=== PATIENT | female | born 1945 | race Hispanic/Latino ===

== ENCOUNTER 2018-03-19 16:41 | Inpatient (IN) | payer OTHER ==
--- OUTSIDE RECORDS SUMMARY | 2018-03-19 17:32 | XMS REPORT | Clinical Summary ---
:1945 Author Organization [facility] Address [address] [place] [address] Care Team Providers Name Role Phone Daniel Lucio MD Primary Care Provider Allergies Active Allergy Reactions Severity Noted Date Comments Codeine GI Intolerance 02/13/2016 Current Medications Prescription Sig. Disp. Refills Start Date End Date Status LINZESS 145 mcg capsule Take 145 mcg by 3 01/10/2016 Active mouth daily. albuterol (VENTOLIN HFA) Inhale 2 puffs every Active 90 mcg/actuation inhaler 6 (six) hours as needed for shortness of breath. budesonide-formoterol Inhale 2 puffs 2 Active (SYMBICORT) 160-4.5 (two) times a day. mcg/actuation inhaler insulin GLARGINE Inject 24 Units Active (LANTUS) 100 unit/mL under the skin daily injection as needed. aspirin (ECOTRIN) 81 MG Take 81 mg by mouth Active enteric coated tablet daily. torsemide (DEMADEX) 20 Take 20 mg by mouth Active MG tablet daily. Active Problems Problem Noted Date PAD (peripheral artery disease) ([facility]) 02/04/2017 Last Assessment & Plan: N. Patient with symptomatic peripheral arterial disease. We discussed peripheral arterial disease, its etiology and need for medical management be contributing risk factors . We discussed natural history i ncluding claudication progressing to rest pain, ulcerations and possibly limb loss. We discussed treatment options including medical therapy, endovascular therapy with angioplasty or stenting, and surgi toni bypass. We discussed trying to avoid amputation and the need to go in a stepwise fashion. We discussed potential complications including worsening of disease, healing complications, recurrent nature of this problem and need for additional therapies in the future. Duplex studies reviewed by me show KEV are 1.2. And 1.1. Presumed to be weight related. I advised the pt of the importance of wrapping legs to reduce edema, then wearing knee-high compression stockings. Plan for US of veins. Osteoporosis 02/04/2017 Spinal stenosis 02/04/2017 CKD stage 4 due to type 2 diabetes mellitus (HCC) 02/04/2017 Last Assessment & Plan: Discuss with Dr. Almaguer about potentially beginning diuretics Obesity 02/04/2017 Last Assessment & Plan: I discussed the importance of weight management and discussed the risk of worsening kidney and cardiovascular diseases. Plan to discuss weight management further with Dr. Burns. Umbilical hernia 02/04/2017 Aortic valve disorder 04/30/2016 Diabetes mellitus (HCC) 04/30/2016 HLD (hyperlipidemia) 04/30/2016 COPD exacerbation (HCC) 02/13/2016 Family History Medical History Relation Name Comments No Known Problems Brother No Known Problems Cousin No Known Problems Daughter No Known Problems Father No Known Problems Maternal Grandfather No Known Problems Maternal Grandmother No Known Problems Mother No Known Problems Paternal Grandfather No Known Problems Paternal Grandmother No Known Problems Sister No Known Problems Son Asthma Neg Hx Diabetes Neg Hx Heart failure Neg Hx Hyperlipidemia Neg Hx Hypertension Neg Hx Migraines Neg Hx Osteoarthritis Neg Hx Rashes / Skin problems Neg Hx Rheum arthritis Neg Hx Seizures Neg Hx Stroke Neg Hx Thyroid disease Neg Hx Relation Name Status Comments Brother Cousin Daughter Father Maternal Grandfather Maternal Grandmother Mother Paternal Grandfather Paternal Grandmother Sister Son Social History Tobacco Use Types Packs/Day Years Used Date Former Smoker Comments: 3x/yr; last time was 5 mos ago Alcohol Use Drinks/Week oz/Week Comments Yes occasional Sex Assigned at Date Recorded Not on file Last Filed Vital Signs Not on file Plan of Treatment Health Maintenance Due Date Last Done Comments DIABETIC FOOT EXAM 08/09/1953 DIABETIC RETINAL EYE EXAM 08/09/1953 BREAST CANCER SCREENING 08/09/1993 COLON CANCER SCREENING 08/09/1993 SHINGRIX VACCINE (#1) 08/09/1993 ZOSTER VACCINE 2003 PNEUMOCOCCAL POLYSACCHARIDE VACCINE AGE 65 AND OVER 08/09/2008 PNEUMOCOCCAL-13 08/09/2008 INFLUENZA VACCINE 12/25/2017 Results Not on fileafter 03/18/2017 Insurance Payer Benefit Plan / Group Subscriber ID Type Phone Address MEDICARE MEDICARE PART A AND B xxxxxxxxxx Medicare [place], [place] COMMERCIAL MISC MISC COMMERCIAL xxxxxxxxx Commercial Home: [phone], [place] [phone] [address] [employer] [employer] Self 1945 Home: [address] [phone] [id number]
[2018-03-19 18:22] VITALS: BMI 37.5
[2018-03-19] MEDS ORDERED: ONDANSETRON 4 MG/2 ML VIAL IV PRN (19:00)
[2018-03-19] MEDS ORDERED: POLYETHYL GLY 3350 17 GM/DOSE PO PRN (19:00)
[2018-03-19] MEDS ORDERED: LOPERAMIDE HCL 2 MG CAPSULE PO PRN (19:00)
[2018-03-19] MEDS ORDERED: ACETAMINOPHEN 325 MG TABLET PO PRN (19:00)
[2018-03-19] MEDS ORDERED: ONDANSETRON 4 MG (ODT) TAB PO PRN (19:00)
[2018-03-19] MEDS ORDERED: DIPHENHYDRAMINE 25 MG TAB/CAP PO PRN (19:00)
[2018-03-19 19:06] LABS: Absolute Lymphocytes (CBC) 1.4 K/uL (0.7-4.9); Absolute Monocytes 0.6 K/uL (0.1-1.3); Absolute Neutrophil 4.5 K/uL (1.8-8.0); Basophils % 1.1 % (0-1.3); Eosinophils % 1.4 % (0-4.4); Hematocrit 29.1 % (36.0-45.0); Lymphocytes % 21.1 % (15.3-44.8); MCH 28.4 pg (27.0-35.0); MPV 9.7 fL (7.6-11.3); Monocytes % 9.5 % (3.3-12.3); RBC Red Blood Cell Count 3.42 M/uL (3.86-4.86)
[2018-03-19 19:31] LABS: Protime INR 1.16
[2018-03-19 19:35] LABS: Albumin 2.9 g/dL (3.4-5.0); Bilirubin Direct 0.1 mg/dL (0-0.2); Bilirubin Total 0.3 mg/dL (0.2-1.0); Magnesium 2.3 mg/dL (1.8-2.4); Phosphorus 3.5 mg/dL (2.5-4.9); Potassium 4.2 mmol/L (3.5-5.1); Protein, Total 7.2 g/dL (6.4-8.2); Thyroid Stimulating Hormone 1.71 uIU/mL (0.360-3.740)
[2018-03-19] MEDS ORDERED: D50W 25 GM/50 ML SYRINGE IV PRN (19:55)
[2018-03-19] MEDS ORDERED: GLUCAGON 1 MG/VIAL IM PRN (19:55)
[2018-03-19] MEDS ORDERED: PNEUMOCOCCAL VACCINE 0.5 ML IMVAC ONE (20:00)
[2018-03-19] MEDS ORDERED: INFLUENZA VACCINE (for 3y+) 0.5 ML DOSE IMVAC ONE (20:00)
[2018-03-19 20:07] LABS: Urine Appearance CLEAR; Urine Bilirubin NEGATIVE (NEG); Urine Blood TRACE (NEG); Urine Color YELLOW; Urine Glucose TRACE (NEG); Urine Protein 3+ (NEG); Urine Specific Gravity 1.015 (1.005-1.030); Urine Urobilinogen 0.2 mg/dL (0.2-1.0); Urine pH 5.5 (5.0-7.0)
--- NOTE | 2018-03-19 20:10 | RAD REPORT ---
EXAM DESCRIPTION: RAD - Chest Pa And Lat (2 Views) - 03/19/2018 8:02 pm CLINICAL HISTORY: DYSPNEA, EDEMA Chest pain. COMPARISON: Chest Single View dated 03/21/2017; Chest Single View dated 03/19/2017; Chest Pa And Lat (2 Views) dated 04/05/2016; Chest Pa And Lat (2 Views) dated 03/13/2016 FINDINGS: Mild interstitial pulmonary edema is seen. The heart is moderately enlarged in size. Small bilateral pleural effusions are present. Sternal hardware is present. IMPRESSION: Mild CHF versus volume overload pattern. Small bilateral pleural effusions.
[2018-03-19 20:20] LABS: Urine Microscopic Reflex ORDER UMIC
[2018-03-19 20:24] LABS: Urine Bacteria <20 /HPF (<20); Urine Culture Reflex Order REFLEXED; Urine RBC <5 /HPF (NONE SEEN)
[2018-03-19] MEDS: INSULIN -REGULAR HUMAN 50 UNIT/0.5 ML ML IV SCH (21:00)
[2018-03-19] MEDS: ENOXAPARIN 40 MG/0.4 ML SQ SCH (22:42)
[2018-03-19] MEDS ORDERED: FUROSEMIDE 40 MG/4 ML VIAL ONE (22:43)
[2018-03-19] MEDS: FUROSEMIDE 40 MG in NA CHLORIDE 0.9% 100 ML IV SCH (22:43)
[2018-03-19] MEDS ORDERED: NA CHLORIDE 0.9% 100 ML ONE (22:44)
[2018-03-20 05:21] LABS: Absolute Lymphocytes (CBC) 1.4 K/uL (0.7-4.9); Absolute Monocytes 0.6 K/uL (0.1-1.3); Absolute Neutrophil 4.1 K/uL (1.8-8.0); Basophils % 1.2 % (0-1.3); Eosinophils % 2.6 % (0-4.4); Hematocrit 30.1 % (36.0-45.0); Lymphocytes % 21.9 % (15.3-44.8); MCH 27.5 pg (27.0-35.0); MCV 85.9 fL (80-100); MPV 9.7 fL (7.6-11.3); Monocytes % 9.5 % (3.3-12.3)
[2018-03-20 05:32] LABS: Magnesium 2.2 mg/dL (1.8-2.4)
[2018-03-20] MEDS: INSULIN -REGULAR HUMAN 50 UNIT/0.5 ML ML IV SCH ×4 (07:30→21:00)
[2018-03-20] MEDS ORDERED: ENOXAPARIN 40 MG/0.4 ML SQ SCH (09:00)
[2018-03-20] MEDS: ENOXAPARIN 40 MG/0.4 ML SQ SCH (09:17)
[2018-03-20] MEDS: FUROSEMIDE 40 MG in NA CHLORIDE 0.9% 100 ML IV SCH (09:17)
--- NOTE | 2018-03-20 10:14 | RAD REPORT ---
EXAM DESCRIPTION: US - Renal Ultrasound-Complete - 03/20/2018 9:58 am CLINICAL HISTORY: Acute renal failure COMPARISON: Renal ultrasound February 2017 FINDINGS: The right kidney measures 11.4 x 5.4 x 5.3 cm. The left kidney measures 10.3 x 6.1 x 5.8 cm. Cortical thickness is normal. Echogenicity is increased slightly in may reflect minimal underlyin g medical renal disease. Cortical echotexture is not substantially different from 1 year earlier. No hydronephrosis or suspicious renal mass. Bladder was poorly visualized. IMPRESSION: No hydronephrosis or suspicious renal mass. Kidneys are symmetric in size and not significantly different from February 2017. Cortical echogenicit y is minimally increased. This is not substantially different from 2017 but could indicate a mild und erlying medical renal disease.
[2018-03-20 10:15] LABS: Uric Acid 8.1 mg/dL (2.6-6.0)
[2018-03-20] MEDS ORDERED: DICLOFENAC 0.1% TOP PRN (12:56)
[2018-03-20] MEDS ORDERED: MECLIZINE HCL 12.5 MG TAB PO PRN (12:56)
[2018-03-20] MEDS ORDERED: ALBUTEROL INHALER 60 PUFF/8 GM IH PRN (12:56)
[2018-03-20] MEDS ORDERED: HOME MED 1 EA UNK (Polyethylene Glycol 3350 [Miralax] 17 GM) PO SCH ×2 (13:00→15:30)
[2018-03-20] MEDS ORDERED: HOME MED 1 EA UNK (Ipratropium/Albuterol Sulfate [Iprat-Albut 0.5-3(2.5) Mg/3 Ml] 1 INH) NEB SCH (13:00)
[2018-03-20] MEDS ORDERED: ALBUTEROL 2.5 MG/3 ML NEB SOL IH PRN (15:16)
[2018-03-20] MEDS ORDERED: POLYETHYL GLY 3350 17 GM/DOSE PO PRN (15:20)
[2018-03-20] MEDS: INSULIN GLARGINE 100 UNITS/ML SQ SCH (16:00)
[2018-03-20] MEDS: CALCITROL 0.25 MCG CAP PO SCH (16:08)
[2018-03-20] MEDS: IRBESARTAN 150 MG TAB PO SCH (16:08)
[2018-03-20] MEDS: HYDRALAZINE HCL 25 MG TABLET PO SCH ×2 (16:09→21:07)
[2018-03-20] MEDS: NEBIVOLOL HCL 5 MG TAB PO SCH (16:09)
[2018-03-20] MEDS: FUROSEMIDE 40 MG/4 ML VIAL IV SCH (16:09)
[2018-03-20] MEDS: MAGNESIUM HYDROXIDE 8% 30 ML PO SCH ×2 (16:18→21:00)
[2018-03-20] MEDS: ROSUVASTATIN 10 MG TAB PO SCH (16:28)
[2018-03-20] MEDS: LACTULOSE 20 GM/30 ML UCUP PO SCH (16:28)
[2018-03-20] MEDS: INSULIN LISPRO 100 UNIT/1 ML SQ SCH (16:30)
--- NOTE | 2018-03-20 16:46 | CON ---
Date of Consultation: 03/20/2018 NEPHROLOGY CONSULTATION Reason For Consultation: Fluid management, elevated BUN and creatinine. History Of Present Illness: This is a pleasant 72-year-old female with significant past medical history of diabetes complicated with neuropathy and nephropathy; hypertension; coronary artery disease, status post aortic valve replacement; chronic kidney disease, follow up with Dr. Almaguer in [place]; anasarca. The patient was in her regular state of health up until a few days ago when she started to have significant increase in her leg swelling and shortness of breath. For that reason, reported to the hospital. In the hospital, found to have elevated BUN and creatinine, creatinine 2.2 and GFR down to 22. For that reason, we have been consulted. Reviewing the record for the patient, apparently the patient had creatinine around the same range 2.3 back in April 2017 with GFR of 20. The patient denied any recent change in her medication. No IV contrast. Over the night, the patient was started on diuresis. The patient still has shortness of breath. Past Medical History: 1. Chronic kidney disease. 2. Hypertension. 3. Diabetes complicated with neuropathy and nephropathy. 4. Chronic kidney disease, baseline creatinine of 2, GFR around 25. 5. Coronary artery disease, status post valve replacement. Last cardiac cath 4 years back. 6. Apparently, the patient had some kidney disease back in childhood. According to her at that time, she had anasarca and was treated with home remedy and resolved. Home Medications: Include Amaryl, Lasix 80, Imdur, metformin, and Bystolic. Home medications from the office of Dr. Lucio include Avapro, insulin, pravastatin, and breathing treatment with prednson . Past Surgical History: 1. Ovarian surgery back in 1994 for cancer. 2. Inguinal hernia. 3. Tonsillectomy. 4. Knee surgery. Social History: Denies smoking. Denies drinking. Denies drug abuse. Family History: Positive for hypertension. Review of Systems: Head and Neck: No red eye. No ear pain. GI: No nausea. No vomiting. : No polyuria. No dysuria. No hematuria. [employer] DES[employer]: No vaginal discharge. Respiratory: Has shortness of breath. Cardiovascular: Has leg swelling, has orthopnea. Musculoskeletal: No joint pain. Endocrine: No polydipsia. Skin: No rash. Physical Examination: General: When I saw the patient, the patient sitting in bed, slightly shortness of breath. Vital Signs: Blood pressure of 180/85, pulse of 65, afebrile. Chest: Crackles in bilateral bases. Heart: S1, S2 systolic murmur. Abdomen: Soft, nontender, possible ascites. Extremities: +2 edema. Neurological: Alert, oriented x3. No focal. Current Medications: In the hospital include Lovenox, Lasix, loperamide, insulin. Laboratory Data: Sodium 141, potassium 4, bicarb 27, BUN 51, creatinine 2.2, calcium 8.7, magnesium 2.2, uric acid 8.1. CK of 32. PTH of 178. Vitamin D25 is 23 back in March 2016. Urinalysis; specific gravity of 1.015, wbc's of 10 , protein creatinine of 2 back in February 2017. She has workup of serology, KARLIE was negative. Assessment And Plan: 1. Chronic kidney disease stage 4, mostly secondary to diabetic nephropathy, cardiorenal stable on baseline, over volume with respiratory symptoms. I am going to go ahead and increase her Lasix to 80 mg twice a day. Given the proteinuria which is mostly secondary to diabetes with the presence of the anemia, light chain disease needs to be ruled out. I am going to go ahead and send for full workup including SPEP serology, and we will follow up. 2. Hypertension. I am going to utilize the blood pressure for more diuresis. We will hold TELLO inhibitor for the time being. 3. Anasarca secondary to cardiorenal. I am going to go ahead and increase Lasix to 80 mg b.i.d., and we will follow up the patient. I am going to go ahead and get echocardiogram. We will quantify the protein creatinine, and we will send for TSH. 4. Urinary tract infection. We will start the patient on antibiotic. Thank you Dr. Lucio for allowing us to participate in the care of your patient. DEAN Voice ID: [id number] Report ID: [id number]
--- NOTE | 2018-03-20 17:13 | P.PN ---
Subjective Date of Service: 03/20/18 Chief Complaint: SOME BETTER. Subjective: Improving (HER BREATHING HAS IMPROVED SOME.) Review of Systems 10-point ROS is otherwise unremarkable General: Weakness, Malaise Respiratory: Shortness of Breath Physical Examination - Vital Signs Temperature: 97.2 F Blood Pressure: 188/90 Pulse: 61 Respirations: 17 Pulse Ox (%): 96 - Physical Exam General: Obese HEENT: Atraumatic, PERRLA, EOMI Neck: Supple, JVD not distended Respiratory: Clear to auscultation bilaterally, Normal air movement Cardiovascular: Regular rate/rhythm, Normal S1 S2 Gastrointestinal: Normal bowel sounds, No tenderness Musculoskeletal: No tenderness Integumentary: No rashes Neurological: Normal speech, Normal tone, Normal affect Lymphatics: No axilla or inguinal lymphadenopathy - Studies Laboratory Data (last 24 hrs) 03/20/18 04:28: Uric Acid 8.1 H 03/20/18 04:28: Sodium 141, Potassium 4.0, BUN 51 H, Creatinine 2.20 H, Glucose 150 H, Magnesium 2.2 03/20/18 04:28: WBC 6.4, Hgb 9.6 L, Hct 30.1 L, Plt Count 233 03/19/18 19:12: PT 13.7 H, INR 1.16, APTT 33.1 03/19/18 18:38: Sodium 142, Potassium 4.2, BUN 50 H, Creatinine 2.40 H, Glucose 195 H, Phosphorus 3.5, Magnesium 2.3, Total Bilirubin 0.3, AST 13 L, ALT 22, Alkaline Phosphatase 315 H 03/19/18 18:38: WBC 6.7, Hgb 9.7 L, Hct 29.1 L, Plt Count 238 Medications List Reviewed: Yes Assessment And Plan - Current Problems (Diagnosis) (1) CHF (congestive heart failure) Onset Date: 03/20/18 Current Visit: Yes Status: Acute Plan: SHE IS NOT TOLERATING THE WRAPS SHE NEEDS WITHOUT WRAPS IN LEGS SHE WILL GET ULCERS BACK HER RENAL FUNCTION IS NOT GOOD ENOUGH FOR EXTRA FLUIDS. (2) Dyspnea Onset Date: 03/20/18 Current Visit: Yes Status: Chronic Qualifiers: Dyspnea type: shortness of breath Qualified Code(s): R06.02 - Shortness of breath; R06.00 - Dyspnea, unspecified; R06.01 - Orthopnea (3) CKD (chronic kidney disease) Current Visit: No Status: Chronic Plan: DIABEETES AND HTN. SHE WILL CHANGE TO DR TIM. SHE DISLIKES DR PALACIOS. Qualifiers: Chronic kidney disease stage: stage 4 (severe) Qualified Code(s): N18.4 - Chronic kidney disease, stage 4 (severe)
[2018-03-20] MEDS: ALBUTEROL 2.5 MG/3 ML NEB SOL IH SCH (20:45)
[2018-03-20] MEDS: IPRATROPIUM BROM 0.5MG/2.5ML IH SCH (20:45)
[2018-03-20] MEDS ORDERED: FORMOTEROL FUMARATE IH SCH (21:00)
[2018-03-20] MEDS ORDERED: [UNRECOGNIZED DRUG - OTHER] IH SCH (21:00)
[2018-03-20] MEDS ORDERED: BUDESONIDE IH SCH (21:00)
[2018-03-20] MEDS ORDERED: CALCIFEDIOL PO SCH (21:00)
[2018-03-20] MEDS: PARoxetine HCl 10 MG TAB PO SCH (21:07)
[2018-03-21] MEDS: IPRATROPIUM BROM 0.5MG/2.5ML IH SCH ×4 (01:37→20:34)
[2018-03-21] MEDS: ALBUTEROL 2.5 MG/3 ML NEB SOL IH SCH ×4 (01:38→20:34)
[2018-03-21 05:09] LABS: Absolute Lymphocytes (CBC) 1.1 K/uL (0.7-4.9); Absolute Monocytes 0.6 K/uL (0.1-1.3); Basophils % 0.9 % (0-1.3); Eosinophils % 2.2 % (0-4.4); Hematocrit 27.8 % (36.0-45.0); Lymphocytes % 18.8 % (15.3-44.8); MCH 28.2 pg (27.0-35.0); MCV 85.2 fL (80-100); MPV 9.7 fL (7.6-11.3); Monocytes % 10.7 % (3.3-12.3); RBC Red Blood Cell Count 3.26 M/uL (3.86-4.86)
[2018-03-21 05:48] LABS: Albumin 2.6 g/dL (3.4-5.0); Ferritin 130.1 ng/mL (8-388); Magnesium 2.2 mg/dL (1.8-2.4); Phosphorus 3.6 mg/dL (2.5-4.9); Thyroid Stimulating Hormone 2.68 uIU/mL (0.360-3.740)
[2018-03-21] MEDS: INSULIN LISPRO 100 UNIT/1 ML SQ SCH ×3 (07:30→16:29)
[2018-03-21] MEDS: INSULIN -REGULAR HUMAN 50 UNIT/0.5 ML ML IV SCH ×4 (07:30→21:00)
--- NOTE | 2018-03-21 07:31 | EKG ---
Test Date: 2018-03-20 Test Time: 08:37:03 Fire Control System Installer: MARGO MEASUREMENT RESULTS: Intervals: Rate: 66 ID: [id number] QRSD: 110 QT: 442 QTc: 463 Orient: P: 64 ID: [id number] QRS: -21 T: 102 INTERPRETIVE STATEMENTS: Sinus rhythm with occasional premature ventricular complexes Possible Anterior infarct, age undetermined Abnormal ECG Compared to ECG 07/23/2013 14:46:09 Ventricular premature complex(es) now present Myocardial infarct finding now present T-wave abnormality no longer present Electronically Signed On 03-21-18 07:28:02 CDT by Primitivo Murphy
--- NOTE | 2018-03-21 07:54 | ECHO ---
HEIGHT: 5 ft 2 in WEIGHT: 210 lb 9.6 oz DATE OF STUDY: 03/20/[address]: Leonie Hooks MD 2-DIMENSIONAL: YES M.MODE: YES DOPPLER: YES COLOR FLOW: YES TDS: NO PORTABLE: NO DEFINITY: NO BUBBLE STUDY: NO DIAGNOSIS: ANASARCA CARDIAC HISTORY: CATHERIZATION: NO SURGERY: NO PROSTHETIC VALVE: NO PACEMAKER: NO MEASUREMENTS (cm) DIASTOLIC (NORMALS) SYSTOLIC (NORMALS) IVSd 1.1 (0.6-1.2) LA Diam 4.4 (1.9-4.0) LVEF 26% LVIDd 4.8 (3.5-5.7) LVIDs 4.2 (2.0-3.5) %FS 12% LVPWd 1.2 (0.6-1.2) Ao Diam 2.8 (2.0-3.7) 2 DIMENSIONAL ASSESSMENT: RIGHT ATRIUM: NORMAL LEFT ATRIUM: DILATED RIGHT VENTRICLE: NORMAL LEFT VENTRICLE: NORMAL SIZE TRICUSPID VALVE: NORMAL MITRAL VALVE: MITRAL ANNULAR CALCIFICATION PULMONIC VALVE: NORMAL AORTIC VALVE: NORMAL PERICARDIAL EFFUSION: NONE AORTIC ROOT: NORMAL LEFT VENTRICULAR WALL MOTION: SEVERE GLOBAL HYPOKINESIS. DOPPLER/COLOR FLOW: NORMAL COMMENTS: SEVERE GLOBAL HYPOKINESIS. LEFT VENTRICULAR EJECTION FRACTION 25-30%. MITRAL ANNULAR CALCIFICATION. LEFT ATRIAL ENLARGEMENT. TECHNOLOGIST: Marialuisa GABRIEL
[2018-03-21] MEDS ORDERED: HOME MED 1 EA UNK (Linaclotide [Linzess] 1 CAP) PO SCH (08:00)
[2018-03-21] MEDS: NITROGLYCERIN 0.2 MG/HR (5 MG) PATCH TD SCH (09:00)
[2018-03-21] MEDS ORDERED: PREDNISOLONE ACETATE OPTH SCH (09:00)
[2018-03-21] MEDS ORDERED: HOME MED 1 EA UNK (Rosuvastatin Calcium [Rosuvastatin Calcium] 5 MG) PO SCH (09:00)
[2018-03-21] MEDS ORDERED: METOPROLOL XL 50 MG TAB PO SCH (09:00)
[2018-03-21] MEDS ORDERED: LACTULOSE PO SCH (09:00)
[2018-03-21] MEDS ORDERED: HOME MED 1 EA UNK (Irbesartan [Avapro] 300 MG) PO SCH (09:00)
[2018-03-21] MEDS: INSULIN GLARGINE 100 UNITS/ML SQ SCH (09:00)
[2018-03-21] MEDS ORDERED: INSULIN GLARGINE HUM REC ANLOG 30 UNIT SQ SCH (09:00)
[2018-03-21] MEDS: IRBESARTAN 150 MG TAB PO SCH (09:14)
[2018-03-21] MEDS: MAGNESIUM HYDROXIDE 8% 30 ML PO SCH ×2 (09:14→21:00)
[2018-03-21] MEDS: ENOXAPARIN 40 MG/0.4 ML SQ SCH (09:14)
[2018-03-21] MEDS: LACTULOSE 20 GM/30 ML UCUP PO SCH (09:14)
[2018-03-21] MEDS: ROSUVASTATIN 10 MG TAB PO SCH (09:15)
[2018-03-21] MEDS: NEBIVOLOL HCL 5 MG TAB PO SCH (09:16)
[2018-03-21] MEDS: FENOFIBRATE 160 MG TAB PO SCH (09:16)
[2018-03-21] MEDS: CALCITROL 0.25 MCG CAP PO SCH (09:16)
[2018-03-21] MEDS: LISINOPRIL 10 MG TAB PO SCH (09:16)
[2018-03-21] MEDS: HYDRALAZINE HCL 25 MG TABLET PO SCH ×2 (09:16→21:23)
[2018-03-21] MEDS: FUROSEMIDE 40 MG/4 ML VIAL IV SCH ×2 (09:17→16:28)
[2018-03-21] MEDS: levoFLOXacin 250 MG TAB PO SCH (09:17)
--- NOTE | 2018-03-21 12:49 | RAD REPORT ---
EXAM DESCRIPTION: [facility] Single View03/21/2018 12:43 pm CLINICAL HISTORY: sob COMPARISON: 03/19/2018 FINDINGS: Mild bilateral interstitial lung opacities are unchanged. The heart is moderately enlarged IMPRESSION: Mild CHF
--- NOTE | 2018-03-21 12:52 | RAD REPORT ---
EXAM DESCRIPTION: NM - Vent Perfusion VQ Scan - 03/21/2018 11:16 am CLINICAL HISTORY: sob COMPARISON: Chest x-ray 03/21/2018 TECHNIQUE: 19.5 Mci [id number] was administered by inhalation. First breath, equilibrium, and washout images obtaine d. 7.5 millicuries Technetium-99 MAA was administered intravenously. Anterior, posterior, lateral and ob lique views of the lungs were taken. FINDINGS: The lungs demonstrate relatively homogeneous radiotracer activity on ventilation and perfu tucker sequences. No mismatched segmental or lobar perfusion defects are seen. IMPRESSION: No evidence of a pulmonary embolus
[2018-03-21] MEDS ORDERED: cloNIDine HCl 0.1 MG TAB PO PRN (14:42)
--- NOTE | 2018-03-21 14:47 | P.PN ---
Subjective Date of Service: 03/21/18 Chief Complaint: SOME BETTER. Subjective: Improving (STILL COMPLAINTS OF NOT BEING ABLE TO TAKE A DEEP BREATH. ) Review of Systems 10-point ROS is otherwise unremarkable General: Weakness, Malaise Respiratory: Shortness of Breath Cardiovascular: Edema Physical Examination - Vital Signs Temperature: 97.3 F Blood Pressure: 182/80 Pulse: 63 Respirations: 20 Pulse Ox (%): 100 - Physical Exam General: Alert, Mild distress, Obese HEENT: Atraumatic, PERRLA, EOMI Neck: Supple, JVD not distended Respiratory: Clear to auscultation bilaterally, Normal air movement Cardiovascular: Regular rate/rhythm, Normal S1 S2, Edema (LESSER THAN BEFORE.) Gastrointestinal: Normal bowel sounds, No tenderness Musculoskeletal: No tenderness Integumentary: No rashes Neurological: Normal speech, Normal tone, Normal affect Lymphatics: No axilla or inguinal lymphadenopathy - Studies Laboratory Data (last 24 hrs) 03/21/18 04:36: WBC 5.9, Hgb 9.2 L, Hct 27.8 L, Plt Count 219 03/21/18 04:26: Sodium 139, Potassium 4.0, BUN 42 H, Creatinine 1.80 H, Glucose 145 H, Phosphorus 3.6, Magnesium 2.2 Medications List Reviewed: Yes Assessment And Plan - Current Problems (Diagnosis) (1) CHF (congestive heart failure) Onset Date: 03/20/18 Current Visit: Yes Status: Acute Plan: SHE IS NOT TOLERATING THE WRAPS SHE NEEDS WITHOUT WRAPS IN LEGS SHE WILL GET ULCERS BACK HER RENAL FUNCTION IS NOT GOOD ENOUGH FOR EXTRA FLUIDS. MULTIFACTORIAL EDEMA AND DYSPNEA FROM DIASTOLIC DYSFUNCTION, CRF AND OBESITY. SHE MAY HAD ALICIA. SECONDARY PULMONARY HYPERTENSION. SHE IS GETTING ALL MEDS POSSIBLE. SHE ALWAYS SAYS THAT SHE DOES NOT EAT MUCH BUT NOT ABLE TO LOSE WEIGHT. (2) Dyspnea Onset Date: 03/20/18 Current Visit: Yes Status: Chronic Plan: Orders (last 24 hrs) 03/20/18 15:00 Calcitrol [Rocaltrol] 0.25 mcg PO DAILY Hydralazine [Apresoline] 25 mg PO BID Mag Hydroxide 8% [Milk Of Magnesia] 15 ml PO BID Nebivolol HCl [Bystolic] 5 mg PO DAILY 03/20/18 15:16 Albuterol Neb [Proventil 0.083% Neb Soln] 2.5 mg IH Q2HP PRN 03/20/18 15:20 Polyethyl Gly 3350 [Glycolax] 17 gm PO DAILY PRN 03/20/18 16:00 Insulin Glargine Human [Lantus] 30 units SQ DAILY Irbesartan [Avapro] 300 mg PO DAILY Lactulose [Cephulac] 10 gm PO DAILY Rosuvastatin [Crestor] 5 mg PO DAILY 03/20/18 16:30 Insulin Lispro [Humalog] 5 unit SQ AC 03/20/18 19:55 CPAP [BiPAP/CPAP (RT)] BEDTIME 03/20/18 20:00 Albuterol Neb [Proventil 0.083% Neb Soln] 2.5 mg IH [id number] Ipratropium Neb [Atrovent Neb] 0.5 mg IH [id number] 03/20/18 21:00 Budesonide/Formoterol Fumarate [Symbicort 160-4.5 Mcg Inhaler] 2 inh IH BID Calcifediol [Rayaldee] 1 cap PO BEDTIME PARoxetine HCl [Paxil] 10 mg PO BEDTIME 03/21/18 Social Service Consult Routine 03/21/18 04:36 HIV AG/AB SCREEN Routine 03/21/18 08:00 Fenofibrate [Tricor] 160 mg PO DAILY WITH BREAKFAST Linaclotide [Linzess] 1 cap PO BREAKFAST 03/21/18 09:00 Prednisolone Acetate/Pf [Prednisolone Acet 1% Eye Drop] 1 drop OPTH DAILY 03/21/18 14:42 cloNIDine HCl [Catapres] 0.1 mg PO Q2H PRN 03/21/18 14:43 Echo [Echo with Doppler] [ECHO] Routine 03/22/18 05:00 C7 [Basic Metabolic Panel] DAILY CBC with Automated Diff DAILY Magnesium DAILY 03/23/18 05:00 C7 [Basic Metabolic Panel] DAILY CBC with Automated Diff DAILY Magnesium DAILY 03/24/18 05:00 C7 [Basic Metabolic Panel] DAILY CBC with Automated Diff DAILY Magnesium DAILY 03/25/18 05:00 C7 [Basic Metabolic Panel] DAILY CBC with Automated Diff DAILY Magnesium DAILY 03/26/18 05:00 C7 [Basic Metabolic Panel] DAILY CBC with Automated Diff DAILY Magnesium DAILY 03/27/18 05:00 C7 [Basic Metabolic Panel] DAILY CBC with Automated Diff DAILY Magnesium DAILY 03/27/18 09:00 Dulaglutide [Trulicity] 1.5 mg SQ EVERY 7TH DAY 03/28/18 05:00 C7 [Basic Metabolic Panel] DAILY CBC with Automated Diff DAILY Magnesium DAILY 03/29/18 05:00 C7 [Basic Metabolic Panel] DAILY CBC with Automated Diff DAILY Magnesium DAILY Qualifiers: Dyspnea type: shortness of breath Qualified Code(s): R06.02 - Shortness of breath; R06.00 - Dyspnea, unspecified; R06.01 - Orthopnea (3) CKD (chronic kidney disease) Current Visit: No Status: Chronic Plan: DIABEETES AND HTN. SHE WILL CHANGE TO DR TIM. SHE DISLIKES DR PALACIOS. Qualifiers: Chronic kidney disease stage: stage 4 (severe) Qualified Code(s): N18.4 - Chronic kidney disease, stage 4 (severe)
[2018-03-21] MEDS: PARoxetine HCl 10 MG TAB PO SCH (21:23)
[2018-03-21 21:39] LABS: Rheumatoid Factor NEG (NEG)
--- NOTE | 2018-03-22 01:42 | PN ---
Date of Progress Note: 03/21/2018 Chief Complaint: Acute kidney injury. History Of Present Illness: Acute kidney injury moderately severe, nonoliguric, associated with prer enal azotemia. The patient has underlying chronic kidney disease stage 3. The patient has history o f hypertension, coronary artery disease, and chronic kidney disease. There is underlying family hist ory of hypertension. Review of Systems: Denies fever, chills. Physical Examination: LUNGS: Diminished breath sounds at bases. HEART: S1-S2. ABDOMEN: Soft benign. EXTREMITIES: Slight edema. Impression And Plan: 1.Chronic kidney disease, stage 3, advancing to stage IV. Baseline creatinine level is 2.2, preren al azotemia. The patient has fluid overload. She will continue Lasix for volume control. 2.There is underlying proteinuria likely secondary to diabetic kidney disease. The patient is under going workup to rule out monoclonal gammopathy. 3.Hypertension. TELLO inhibitor on hold. The patient will continue diuretics for volume control. 4.Anasarca, cardiorenal syndrome. Continue Lasix and low-sodium diet and plan is to check TSH to ru le out hypothyroidism. 5.Urinary tract infection. The patient will continue antibiotics. EB/MODL Voice ID: [id number] Report ID: [id number]
[2018-03-22] MEDS: IPRATROPIUM BROM 0.5MG/2.5ML IH SCH ×4 (01:46→19:28)
[2018-03-22] MEDS: ALBUTEROL 2.5 MG/3 ML NEB SOL IH SCH ×4 (01:47→19:28)
[2018-03-22 05:29] LABS: Absolute Monocytes 0.5 K/uL (0.1-1.3); Absolute Neutrophil 3.7 K/uL (1.8-8.0); Basophils % 0.9 % (0-1.3); Eosinophils % 1.3 % (0-4.4); Hematocrit 25.6 % (36.0-45.0); Lymphocytes % 18.4 % (15.3-44.8); MCH 28.6 pg (27.0-35.0); MCV 85.2 fL (80-100); MPV 9.5 fL (7.6-11.3); Monocytes % 10.1 % (3.3-12.3); RBC Red Blood Cell Count 3.01 M/uL (3.86-4.86)
[2018-03-22 05:41] LABS: Albumin 2.5 g/dL (3.4-5.0); Phosphorus 4.4 mg/dL (2.5-4.9); Potassium 4.1 mmol/L (3.5-5.1)
[2018-03-22] MEDS: INSULIN LISPRO 100 UNIT/1 ML SQ SCH ×3 (07:30→16:30)
[2018-03-22] MEDS: INSULIN -REGULAR HUMAN 50 UNIT/0.5 ML ML IV SCH ×4 (08:13→20:37)
[2018-03-22] MEDS: NITROGLYCERIN 0.2 MG/HR (5 MG) PATCH TD SCH (09:00)
[2018-03-22] MEDS: INSULIN GLARGINE 100 UNITS/ML SQ SCH ×2 (09:00)
[2018-03-22] MEDS: MAGNESIUM HYDROXIDE 8% 30 ML PO SCH ×3 (09:36→20:40)
[2018-03-22] MEDS: ENOXAPARIN 40 MG/0.4 ML SQ SCH (09:36)
[2018-03-22] MEDS: ROSUVASTATIN 10 MG TAB PO SCH (09:37)
[2018-03-22] MEDS: IRBESARTAN 150 MG TAB PO SCH (09:37)
[2018-03-22] MEDS: FUROSEMIDE 40 MG/4 ML VIAL IV SCH ×2 (09:37→17:00)
[2018-03-22] MEDS: LISINOPRIL 10 MG TAB PO SCH (09:38)
[2018-03-22] MEDS: FENOFIBRATE 160 MG TAB PO SCH (09:38)
[2018-03-22] MEDS: NEBIVOLOL HCL 5 MG TAB PO SCH (09:38)
[2018-03-22] MEDS: levoFLOXacin 250 MG TAB PO SCH (09:38)
[2018-03-22] MEDS: CALCITROL 0.25 MCG CAP PO SCH (09:38)
[2018-03-22] MEDS: HYDRALAZINE HCL 25 MG TABLET PO SCH ×2 (09:38→20:36)
[2018-03-22] MEDS ORDERED: SODIUM CHLORIDE 0.9% 10ML INJ IV PRN (09:39)
[2018-03-22] MEDS: LACTULOSE 20 GM/30 ML UCUP PO SCH (09:39)
[2018-03-22 11:25] LABS: Arterial Blood Carboxyhemoglob 1.8 % (0-1.5); Blood Gas Oxyhemoglobin 96.5 % (94-97); Blood O2 Saturation 99.1 % (92-98.5)
--- NOTE | 2018-03-22 11:25 | P.PN ---
Subjective Date of Service: 03/22/18 Chief Complaint: SOME BETTER. Subjective: Improving STILL DYSPNEA BUT LOT BETTER. EDEMA BUT LOT BETTER. Review of Systems 10-point ROS is otherwise unremarkable General: Weakness, Malaise Cardiovascular: Edema Physical Examination - Vital Signs Temperature: 97.8 F Blood Pressure: 157/87 Pulse: 74 Respirations: 18 Pulse Ox (%): 100 - Physical Exam General: Alert, Mild distress, Obese HEENT: Atraumatic, PERRLA, EOMI Neck: Supple, JVD not distended Respiratory: Clear to auscultation bilaterally, Normal air movement Cardiovascular: Regular rate/rhythm, Normal S1 S2, Edema Gastrointestinal: Normal bowel sounds, No tenderness Musculoskeletal: No tenderness Integumentary: No rashes Neurological: Normal speech, Normal tone, Normal affect Lymphatics: No axilla or inguinal lymphadenopathy - Studies Laboratory Data (last 24 hrs) 03/22/18 04:55: Sodium 136, Potassium 4.1, BUN 45 H, Creatinine 2.10 H, Glucose 151 H, Phosphorus 4.4, Magnesium 2.0 03/22/18 04:55: WBC 5.3, Hgb 8.6 L, Hct 25.6 L, Plt Count 190 Microbiology Data (last 24 hrs): 03/19/18 18:00 Clean Catch Urine Jones Count - Final BETWEEN 10,000 & 100,000 CFU/ML 03/19/18 18:00 Clean Catch Urine - Final Medications List Reviewed: Yes Assessment And Plan - Current Problems (Diagnosis) (1) CHF (congestive heart failure) Onset Date: 03/20/18 Current Visit: Yes Status: Acute Plan: SHE IS NOT TOLERATING THE WRAPS SHE NEEDS WITHOUT WRAPS IN LEGS SHE WILL GET ULCERS BACK HER RENAL FUNCTION IS NOT GOOD ENOUGH FOR EXTRA FLUIDS. MULTIFACTORIAL EDEMA AND DYSPNEA FROM DIASTOLIC DYSFUNCTION, CRF AND OBESITY. SHE MAY HAD ALICIA. SECONDARY PULMONARY HYPERTENSION. SHE IS GETTING ALL MEDS POSSIBLE. SHE ALWAYS SAYS THAT SHE DOES NOT EAT MUCH BUT NOT ABLE TO LOSE WEIGHT. CONGESTIVE CARDIOMYOPATHY ON ECHO SHE HAS BEEN TO DR PATIÑO . LAST CATH WAS DURING VALVE REPLACEMENT 4 YEARS AGO. THIS IS ALL CONSEQUNCE OF OBESTIY, DM, HTN AND NOW CRF. SHE UNDERSTANDS. UNFORTUNATELY EVERY PATIENT WANTS A CURE BUT ALL THESE CAN'T BE CURED BUT MAINTAINED. WEIGHT LOSS WILL HELP BUT SHE SAYS SHE HAS NEVER AT MUCH. (2) Dyspnea Onset Date: 03/20/18 Current Visit: Yes Status: Chronic Plan: Orders (last 24 hrs) 03/20/18 15:00 Calcitrol [Rocaltrol] 0.25 mcg PO DAILY Hydralazine [Apresoline] 25 mg PO BID Mag Hydroxide 8% [Milk Of Magnesia] 15 ml PO BID Nebivolol HCl [Bystolic] 5 mg PO DAILY 03/20/18 15:16 Albuterol Neb [Proventil 0.083% Neb Soln] 2.5 mg IH Q2HP PRN 03/20/18 15:20 Polyethyl Gly 3350 [Glycolax] 17 gm PO DAILY PRN 03/20/18 16:00 Insulin Glargine Human [Lantus] 30 units SQ DAILY Irbesartan [Avapro] 300 mg PO DAILY Lactulose [Cephulac] 10 gm PO DAILY Rosuvastatin [Crestor] 5 mg PO DAILY 03/20/18 16:30 Insulin Lispro [Humalog] 5 unit SQ AC 03/20/18 19:55 CPAP [BiPAP/CPAP (RT)] BEDTIME 03/20/18 20:00 Albuterol Neb [Proventil 0.083% Neb Soln] 2.5 mg IH [id number] Ipratropium Neb [Atrovent Neb] 0.5 mg IH [id number] 03/20/18 21:00 Budesonide/Formoterol Fumarate [Symbicort 160-4.5 Mcg Inhaler] 2 inh IH BID Calcifediol [Rayaldee] 1 cap PO BEDTIME PARoxetine HCl [Paxil] 10 mg PO BEDTIME 03/21/18 Social Service Consult Routine 03/21/18 04:36 HIV AG/AB SCREEN Routine 03/21/18 08:00 Fenofibrate [Tricor] 160 mg PO DAILY WITH BREAKFAST Linaclotide [Linzess] 1 cap PO BREAKFAST 03/21/18 09:00 Prednisolone Acetate/Pf [Prednisolone Acet 1% Eye Drop] 1 drop OPTH DAILY 03/21/18 14:42 cloNIDine HCl [Catapres] 0.1 mg PO Q2H PRN 03/21/18 14:43 Echo [Echo with Doppler] [ECHO] Routine 03/22/18 05:00 C7 [Basic Metabolic Panel] DAILY CBC with Automated Diff DAILY Magnesium DAILY 03/23/18 05:00 C7 [Basic Metabolic Panel] DAILY CBC with Automated Diff DAILY Magnesium DAILY 03/24/18 05:00 C7 [Basic Metabolic Panel] DAILY CBC with Automated Diff DAILY Magnesium DAILY 03/25/18 05:00 C7 [Basic Metabolic Panel] DAILY CBC with Automated Diff DAILY Magnesium DAILY 03/26/18 05:00 C7 [Basic Metabolic Panel] DAILY CBC with Automated Diff DAILY Magnesium DAILY 03/27/18 05:00 C7 [Basic Metabolic Panel] DAILY CBC with Automated Diff DAILY Magnesium DAILY 03/27/18 09:00 Dulaglutide [Trulicity] 1.5 mg SQ EVERY 7TH DAY 03/28/18 05:00 C7 [Basic Metabolic Panel] DAILY CBC with Automated Diff DAILY Magnesium DAILY 03/29/18 05:00 C7 [Basic Metabolic Panel] DAILY CBC with Automated Diff DAILY Magnesium DAILY Qualifiers: Dyspnea type: shortness of breath Qualified Code(s): R06.02 - Shortness of breath; R06.00 - Dyspnea, unspecified; R06.01 - Orthopnea (3) CKD (chronic kidney disease) Current Visit: No Status: Chronic Plan: DIABEETES AND HTN. SHE WILL CHANGE TO DR TIM. SHE DISLIKES DR PALACIOS. Qualifiers: Chronic kidney disease stage: stage 4 (severe) Qualified Code(s): N18.4 - Chronic kidney disease, stage 4 (severe) (4) Congestive cardiomyopathy Current Visit: Yes Status: Acute Plan: CATH TO DEFINE CORONARY MAY HELP BUT WILL SEND HER INTO DIALYSIS. SHE UNDERSTANDS. SHE IS ALREADY ON GOOD MEDS. SHE MAY NEED ENTRESTO IN PLACE OF LISINOPRIL AND ARBS. (5) Diabetes Current Visit: No Status: Chronic Plan: NOTWELL CONTROLLED FOR LONG DURATION. Qualifiers: Diabetes mellitus type: type 2 Chronic kidney disease stage: stage 3 ( moderate)
[2018-03-22] MEDS: PARoxetine HCl 10 MG TAB PO SCH (20:38)
[2018-03-23] MEDS: IPRATROPIUM BROM 0.5MG/2.5ML IH SCH ×3 (01:26→14:35)
[2018-03-23] MEDS: ALBUTEROL 2.5 MG/3 ML NEB SOL IH SCH ×3 (01:26→14:35)
--- NOTE | 2018-03-23 03:20 | PN ---
Date of Progress Note: 03/22/2018 Chief Complaint: Chronic kidney disease stage 3; acute kidney injury, moderately severe; nonoliguric , associated with prerenal azotemia in setting of chronic kidney disease stage 3. The patient has hi story of hypertension, coronary artery disease. Review of Systems: Denies fever, chills. Physical Examination: Lungs: Clear to auscultation bilaterally. Heart S1, S2. No pericardial friction rub. Abdomen: Soft, benign. Extremities: Slight edema. Assessment And Plan: 1.Chronic kidney disease stage 3, advancing to stage 4; prerenal azotemia; mild fluid overload. Con tinue Lasix for volume control. 2.Proteinuria secondary to diabetic kidney disease. The patient is undergoing workup to rule out mo noclonal gammopathy. 3.Hypertension. TELLO inhibitor on hold. Continue diuretic. Adjust medication for blood pressure fo r systolic target blood pressure 120. Resume TELLO inhibitor when the patient is euvolemic. 4.Anasarca, cardiorenal syndrome. Lasix is ordered for volemia control. Continue low-sodium diet. 5.Urinary tract infection. Continue antibiotics. FLOWER/MODL Voice ID: [id number] Report ID: [id number]
[2018-03-23 05:37] LABS: Absolute Lymphocytes (CBC) 0.9 K/uL (0.7-4.9); Absolute Monocytes 0.6 K/uL (0.1-1.3); Absolute Neutrophil 3.8 K/uL (1.8-8.0); Basophils % 0.7 % (0-1.3); Eosinophils % 2.2 % (0-4.4); Hematocrit 26.8 % (36.0-45.0); Lymphocytes % 16.3 % (15.3-44.8); MCH 28.2 pg (27.0-35.0); MCV 85.5 fL (80-100); MPV 9.7 fL (7.6-11.3); Monocytes % 10.4 % (3.3-12.3); RBC Red Blood Cell Count 3.14 M/uL (3.86-4.86)
[2018-03-23 05:52] LABS: Albumin 2.7 g/dL (3.4-5.0); Magnesium 1.9 mg/dL (1.8-2.4); Phosphorus 4.6 mg/dL (2.5-4.9); Potassium 4.4 mmol/L (3.5-5.1)
--- NOTE | 2018-03-23 07:04 | CON ---
Date of Consultation: 03/22/2018 The patient was admitted to Dr. Lucio's service on 03/20/2018. I saw the patient on 03/22/2018. Reason For Consultation: Congestive heart failure. History Of Present Illness: Ms. De Jesus is a 72-year-old woman known to us from pre vious office visits and admissions. She has a history of diabetes, dyslipidemia, COPD, hypertension, and chronic renal insufficiency. She came in initially with nausea, vomiting, anemia, was found to have worsening chronic renal disease. Ejection fraction on echocardiogram was noted to be 26%, and I was consulted. Nephrology is following her. The patient is still having some dyspnea on exertion. Her nausea and vomiting have improved. Her creatinine has worsened from 1.8 to 2.1 with diuresis. Hemoglobin is 8.6. Allergies: CODEINE. Review of Systems: Negative. Social History: Negative. Family History: Positive for heart disease and hypertension. Medications: At home include Demadex, Avapro, insulin, and hydralazine. Physical Examination: General: She was in no acute distress. Vital Signs: Stable. She was afebrile. She was in a sinus rhythm. HEENT: Negative. Neck: Supple without any bruit, lymphadenopathy, JVD, or thyromegaly. Chest: Reveals some rales at the bases. Cardiac: Revealed a regular rhythm and rate with an S3 gallops. No murmurs or rubs. Abdomen: Benign. Extremities: Revealed 1+ edema. Diagnostic Data: Include a renal Doppler that is negative. Chest x-ray shows CHF. EKG shows sinus rhythm with PVCs. Glucose was 149. Troponin was negative. Hemoglobin 8.6. Creatinine is 2.1. She had a connective tissue disease workup including KARLIE that is pending. Hepatitis panel is pending. Impression And Plan: 1.Acute onset of systolic congestive heart failure. 2.Diabetes. 3.Dyslipidemia. 4.Chronic obstructive pulmonary disease. 5.Hypertension. 6.Anemia. 7.Chronic renal disease stage IV. Ms. De Jesus's ejection fraction needs to be evaluated more aggressively. I think it would be reaso nable to repeat the Lexiscan as an outpatient. I agree with Nephrology and her present regimen at th is point. I would personally prefer that she is on carvedilol. I am not so sure she is a candidate for ARBs or TELLO inhibitors at this point though certainly not a candidate for Entresto. Maybe the us e of Aldactone is reasonable. I will discuss the case further with Dr. Hooks and Dr. Lucio. JYOTI/DIVYA Voice ID: [id number] Report ID: [id number]
[2018-03-23] MEDS: INSULIN LISPRO 100 UNIT/1 ML SQ SCH ×3 (07:30→16:28)
[2018-03-23] MEDS: INSULIN -REGULAR HUMAN 50 UNIT/0.5 ML ML IV SCH ×3 (07:30→16:29)
[2018-03-23] MEDS ORDERED: SACUBITRIL/VALSARTAN 49/51 MG TAB PO SCH (09:00)
[2018-03-23] MEDS ORDERED: PANTOPRAZOLE 40 MG INJ IVP SCH (09:00)
[2018-03-23] MEDS: INSULIN GLARGINE 100 UNITS/ML SQ SCH ×2 (09:00)
[2018-03-23 09:33] VITALS: O2SAT 95
[2018-03-23] MEDS: NEBIVOLOL HCL 5 MG TAB PO SCH (09:39)
[2018-03-23] MEDS: FENOFIBRATE 160 MG TAB PO SCH (09:39)
[2018-03-23] MEDS: HYDRALAZINE HCL 25 MG TABLET PO SCH (09:39)
[2018-03-23] MEDS: FUROSEMIDE 40 MG/4 ML VIAL IV SCH ×2 (09:40→16:29)
[2018-03-23] MEDS: LACTULOSE 20 GM/30 ML UCUP PO SCH (09:40)
[2018-03-23] MEDS: ROSUVASTATIN 10 MG TAB PO SCH (09:40)
[2018-03-23] MEDS: NITROGLYCERIN 0.2 MG/HR (5 MG) PATCH TD SCH (09:41)
[2018-03-23] MEDS: levoFLOXacin 250 MG TAB PO SCH (09:41)
[2018-03-23] MEDS: MAGNESIUM HYDROXIDE 8% 30 ML PO SCH (09:41)
[2018-03-23] MEDS: CALCITROL 0.25 MCG CAP PO SCH (09:41)
--- NOTE | 2018-03-23 10:05 | P.DS ---
Admission Date: 03/22/18 Discharge Date: 03/23/18 Disposition: ROUTINE DISCHARGE Discharge Condition: FAIR Reason for Admission: SOME BETTER. - Problems (1) CHF (congestive heart failure) Onset Date: 03/20/18 Current Visit: Yes Status: Acute (2) Dyspnea Onset Date: 03/20/18 Current Visit: Yes Status: Chronic Qualifiers: Dyspnea type: shortness of breath Qualified Code(s): R06.02 - Shortness of breath; R06.00 - Dyspnea, unspecified; R06.01 - Orthopnea (3) CKD (chronic kidney disease) Current Visit: No Status: Chronic Qualifiers: Chronic kidney disease stage: stage 4 (severe) Qualified Code(s): N18.4 - Chronic kidney disease, stage 4 (severe) (4) Congestive cardiomyopathy Current Visit: Yes Status: Acute (5) Diabetes Current Visit: No Status: Chronic Qualifiers: Diabetes mellitus type: type 2 Chronic kidney disease stage: stage 3 ( moderate) Hospital Course: DEAN IS DOING A LOT BETTER. EDEMA HAS IMPROVED. ON ECHO SHE HAS CONGESTIVE CARDIOMYPOATHY WITH EF OF 25%. I STOPPED LISINOPRIL AND AVAPRO AND GAVE HER ENTRESTO BID. SHE IS ON HIGH DOSE OF LASIX AND WE STOPPED TORSEMIDE. I ASKED HER TO EAT ONLY VEGETABLE AND PROTEIN- SMALL AMNT AND LOSE WEIGHT. THAT IS HER BEST BET. SHE WILL TRY SHE SAYS. HER PROGNOSIS IS GUARDED WITH MULTIPLE MEDICAL ISSUES. Vital Signs/Physical Exam: Temp Pulse Resp BP Pulse Ox 97.8 F 79 20 141/63 H 95 03/23/18 08:00 03/23/18 08:00 03/23/18 08:00 03/23/18 08:00 03/23/18 08:00 Laboratory Data at Discharge: WBC 5.5 K/uL (4.3-10.9) 03/23/18 05:08 Hgb 8.8 g/dL (12.0-15.0) L 03/23/18 05:08 Hct 26.8 % (36.0-45.0) L 03/23/18 05:08 Plt Count 201 K/uL (152-406) 03/23/18 05:08 PT 13.7 SECONDS (9.5-12.5) H 03/19/18 19:12 INR 1.16 03/19/18 19:12 APTT 33.1 SECONDS (24.3-36.9) 03/19/18 19:12 Sodium 138 mmol/L (136-145) 03/23/18 05:08 Potassium 4.4 mmol/L (3.5-5.1) 03/23/18 05:08 BUN 41 mg/dL (7-18) H 03/23/18 05:08 Creatinine 2.00 mg/dL (0.55-1.3) H 03/23/18 05:08 Glucose 105 mg/dL (74-106) 03/23/18 05:08 Uric Acid 8.1 mg/dL (2.6-6.0) H 03/20/18 04:28 Phosphorus 4.6 mg/dL (2.5-4.9) 03/23/18 05:08 Magnesium 1.9 mg/dL (1.8-2.4) 03/23/18 05:08 Total Bilirubin 0.3 mg/dL (0.2-1.0) 03/19/18 18:38 AST 13 U/L (15-37) L 03/19/18 18:38 ALT 22 U/L (12-78) 03/19/18 18:38 Alkaline Phosphatase 315 U/L (45-117) H 03/19/18 18:38 Home Medications: Albuterol Sulfate [Ventolin Hfa] 2 puff IH Q4H PRN 03/19/18 Budesonide/Formoterol Fumarate [Symbicort 160-4.5 Mcg Inhaler] 2 inh IH BID Calcifediol [Rayaldee] 1 cap PO BEDTIME 03/19/18 Calcitriol [Rocaltrol] 0.25 mcg PO DAILY 03/19/18 Diclofenac 0.1% Ophth [Voltaren*] 1 avery TOP QID PRN 03/19/18 Dulaglutide [Trulicity] 1.5 mg SQ EVERY 7TH DAY 03/19/18 Fenofibrate Nanocrystallized [Fenofibrate] 145 mg PO DAILY WITH BREAKFAST Hydralazine [Apresoline*] 25 mg PO BID 03/19/18 Insulin Glargine,Hum.rec.anlog [Lantus Solostar] 30 units SQ DAILY 03/19/18 Insulin Lispro [Humalog*] 5 units SQ AC 03/19/18 Ipratropium/Albuterol Sulfate [Iprat-Albut 0.5-3(2.5) mg/3 ml] 1 inh NEB QID Lactulose 1 cap PO DAILY 03/19/18 Linaclotide [Linzess] 1 cap PO BREAKFAST 03/19/18 Mag Hydroxide 8% [Milk Of Magnesia*] 15 ml PO BID 03/19/18 Meclizine HCl [Antivert*] 25 mg PO TID PRN 03/19/18 Nebivolol HCl [Bystolic*] 5 mg PO DAILY 03/19/18 PARoxetine HCl [Paxil*] 10 mg PO BEDTIME 03/19/18 Polyethylene Glycol 3350 [Miralax] 17 gm PO SEECOM 03/19/18 Prednisolone Acetate/Pf [Prednisolone Acet 1% Eye Drop] 1 drop OPTH DAILY Rosuvastatin Calcium 5 mg PO DAILY 03/19/18 Furosemide [Lasix] 80 mg PO BIDL #180 tab 03/23/18 Sacubitril/Valsartan [Entresto 49 mg-51 mg Tablet] 1 tab PO BID #60 tab New Medications: Furosemide [Lasix] 80 mg PO BIDL #180 tab Sacubitril/Valsartan [Entresto 49 mg-51 mg Tablet] 1 tab PO BID #60 tab
[2018-03-23 12:59] VITALS: BP 136/62; TEMP 98.7
[2018-03-23 15:44] LABS: Vitamin D 1,25-Dihydroxy Total 13 pg/mL (18-72); Vitamin D,1,25-OH2, D2 <8 pg/mL
--- NOTE | 2018-03-24 02:27 | PN ---
Date of Progress Note: 03/23/2018 Ms. De Jesus had come in with renal failure, congestive heart failure, much worsening ejection fract ion. Renal is following. Dr. Lucio and I will discuss the addition of Aldactone and maybe Coreg if it is okay with renal. She should have a Lexiscan either inpatient or outpatient depending if she st ays in the hospital. No change in therapy at this point. JYOTI/DIVYA Voice ID: [id number] Report ID: [id number]
[2018-03-24 02:52] LABS: HBsAG Nonreactive (Nonreactive)
[2018-03-24 07:02] LABS: HIV 1/2 Antibody Diff Not indicated.; HIV AG/AB 4TH GEN Non-reactive (Non-reactive)
[2018-03-25 13:58] LABS: Hepatitis C Virus RNA (PCR)log <1.18 log IU/mL
[2018-03-25 16:26] LABS: P-ANCA Anti-Myeloperoxidase Ab <1.0 AI (<1.0)
[2018-03-25 23:35] LABS: Albumin, (SPE) 2.8 g/dL (3.8-4.8); Alpha-1-Globulins 0.3 g/dL (0.2-0.3); Alpha-2-Globulins 0.9 g/dL (0.5-0.9); Gamma Globulins 1.1 g/dL (0.8-1.7); INTERPRETATION REPORT
[2018-03-27] MEDS ORDERED: HOME MED 1 EA UNK (Dulaglutide [Trulicity] 1.5 MG) SQ SCH (09:00)
== END 2018-03-23 17:07 | disposition home health service (06) | DRG 682 ==
LOC: 2ND 17:28 → OBSVTOIN 03-22 06:28
PROVIDERS: ADMIT Internal Medicine; ATTEND Internal Medicine
PROC: 5A09457 Assistance with Respiratory Ventilation, 24-96 Consecutive Hours, Continuous Positive Airway Pressure (ICD-10-PCS; principal; 2018-03-20)
DX: N17.9 Acute kidney failure, unspecified (principal); I50.33 Acute on chronic diastolic (congestive) heart failure; N39.0 Urinary tract infection, site not specified; I13.0 Hypertensive heart and chronic kidney disease with heart failure and stage 1 through stage 4 chronic kidney disease, or unspecified chronic kidney disease; I42.0 Dilated cardiomyopathy; N18.4 Chronic kidney disease, stage 4 (severe); E66.9 Obesity, unspecified; I27.29 Other secondary pulmonary hypertension; R06.00 Dyspnea, unspecified; E78.1 Pure hyperglyceridemia; E11.22 Type 2 diabetes mellitus with diabetic chronic kidney disease; Z79.4 Long term (current) use of insulin; E11.40 Type 2 diabetes mellitus with diabetic neuropathy, unspecified; E11.21 Type 2 diabetes mellitus with diabetic nephropathy; R80.9 Proteinuria, unspecified; Z68.38 Body mass index [BMI] 38.0-38.9, adult
CPT/HCPCS: 36415; 71045; 71046; 76770; 78582; 80048; 80069; 80076; 81003; 81015; 82274; 82550; 82570; 82607; 82652; 82728; 82746; 82805; 82962; 83520; 83540; 83735; 83880; 83970; 84100; 84156; 84165; 84443; 84466; 84550; 85025; 85044; 85379; 85610; 85730; 86021; 86038; 86225; 86317; 86430; 86704; 86706; 87040; 87086; 87088; 87205; 87340; 87389; 87522; 93005; 93306; 94660; 94760; A9540; A9558; C9113; G0378; G0379; J1650

== ENCOUNTER 2018-03-31 10:54 | Inpatient (IN) | payer OTHER ==
--- OUTSIDE RECORDS SUMMARY | 2018-03-31 11:17 | XMS REPORT | Clinical Summary ---
:1945 Author Organization [facility] Address [address] [place] [address] Care Team Providers Name Role Phone Daniel [...] Problem Noted Date PAD (peripheral artery disease) ([facility]) 02/04/2017 Last Assessment & Plan: N. [...] Maintenance Due Date Last Done Comments DIABETIC RETINAL EYE EXAM 1945 DIABETIC FOOT EXAM 08/09/1953 BREAST CANCER SCREENING 08/09/1993 COLON CANCER SCREENING 08/09/1993 SHINGRIX VACCINE (#1) 08/09/1993 ZOSTER VACCINE 2003 PNEUMOCOCCAL POLYSACCHARIDE VACCINE AGE 65 AND OVER 08/09/2008 PNEUMOCOCCAL-13 08/09/2008 INFLUENZA VACCINE 12/25/2017 Results Not on fileafter 03/30/2017 Insurance Payer Benefit Plan / Group Subscriber ID Type Phone Address MEDICARE MEDICARE PART A AND B xxxxxxxxxx Medicare [place], [place] COMMERCIAL MISC MISC COMMERCIAL xxxxxxxxx Commercial Home: [phone], [place] [phone] ABHIJEET DE JESUS Re[employer]ive Self 1945 Home: [address] [phone] [id number]
[2018-03-31] MEDS ORDERED: LOPERAMIDE HCL 2 MG CAPSULE PO PRN (12:00)
[2018-03-31] MEDS ORDERED: ONDANSETRON 4 MG (ODT) TAB PO PRN (12:00)
[2018-03-31] MEDS ORDERED: POLYETHYL GLY 3350 17 GM/DOSE PO PRN (12:00)
[2018-03-31 12:42] LABS: Absolute Lymphocytes (CBC) 0.5 K/uL (0.7-4.9); Absolute Monocytes 0.4 K/uL (0.1-1.3); Absolute Neutrophil 5.5 K/uL (1.8-8.0); Basophils % 0.6 % (0-1.3); Eosinophils % 0.1 % (0-4.4); Hematocrit 30.9 % (36.0-45.0); Lymphocytes % 8.1 % (15.3-44.8); MCH 27.9 pg (27.0-35.0); MCV 85.5 fL (80-100); MPV 9.7 fL (7.6-11.3); Monocytes % 5.6 % (3.3-12.3); RBC Red Blood Cell Count 3.61 M/uL (3.86-4.86)
[2018-03-31 12:44] LABS: Protime INR 1.1
[2018-03-31 13:32] LABS: Albumin 3.4 g/dL (3.4-5.0); Bilirubin Direct 0.2 mg/dL (0-0.2); Bilirubin Total 0.7 mg/dL (0.2-1.0); Magnesium 2.7 mg/dL (1.8-2.4); Phosphorus 4.1 mg/dL (2.5-4.9); Potassium 4.6 mmol/L (3.5-5.1); Thyroid Stimulating Hormone 1.32 uIU/mL (0.360-3.740)
--- NOTE | 2018-03-31 13:36 | RAD REPORT ---
EXAM DESCRIPTION: RAD - Chest Single View - 03/31/2018 1:26 pm CLINICAL HISTORY: chf-dyspnea Chest pain. COMPARISON: Chest Single View dated 03/21/2018; Chest Pa And Lat (2 Views) dated 03/19/2018; Chest S elsy View dated 03/21/2017; Chest Single View dated 03/19/2017 FINDINGS: Portable technique limits examination quality. Moderate bilateral pulmonary opacities are noted, progressive since the comparative study. The heart is moderately enlarged in size. No displaced fractures. IMPRESSION: Moderate CHF versus volume overload pattern.
[2018-03-31] MEDS ORDERED: METOLAZONE 5 MG TABLET PO ONE (14:00)
[2018-03-31] MEDS ORDERED: PNEUMOCOCCAL VACCINE 0.5 ML IMVAC ONE (14:00)
--- NOTE | 2018-03-31 14:24 | RAD REPORT ---
EXAM DESCRIPTION: US - Renal Ultrasound-Complete - 03/31/2018 2:16 pm CLINICAL HISTORY: zaira COMPARISON: Renal Ultrasound-Complete dated 03/20/2018 FINDINGS: Both kidneys are normal in size, shape and echotexture. The right kidney measures 10.8 x 5.4 x 5.2 cm. No hydronephrosis, focal mass or perinephric fluid. The left kidney measures 10.2 x 5.6 x 4.9 cm. No hydronephrosis, focal mass or perinephric fluid. The urinary bladder is incompletely distended without gross abnormality seen. IMPRESSION: Unremarkable renal sonogram.
--- NOTE | 2018-03-31 15:19 | EKG ---
Test Date: 2018-03-31 Test Time: 14:21:23 Polymer Tester: JASMIN MEASUREMENT RESULTS: Intervals: Rate: 70 OK: 194 QRSD: 110 QT: 438 QTc: 473 Imogene: P: 54 OK: 194 QRS: 99 T: 51 INTERPRETIVE STATEMENTS: Normal sinus rhythm Rightward axis Cannot rule out Anterior infarct, age undetermined Abnormal ECG Compared to ECG 03/20/2018 08:37:03 Right-axis deviation now present Ventricular premature complex(es) no longer present Myocardial infarct finding still present Electronically Signed On 03-31-18 15:18:41 HYBRID TESTER by Albaro Hylton
[2018-03-31 15:34] LABS: Urine Appearance CLEAR; Urine Bilirubin NEGATIVE (NEG); Urine Blood TRACE (NEG); Urine Color YELLOW; Urine Glucose 1+ (NEG); Urine Protein 3+ (NEG); Urine Specific Gravity 1.015 (1.005-1.030); Urine Urobilinogen 0.2 mg/dL (0.2-1.0); Urine pH 5.5 (5.0-7.0)
[2018-03-31 15:37] LABS: Urine Microscopic Reflex ORDER UMIC
[2018-03-31 15:46] LABS: Urine Bacteria <20 /HPF (<20); Urine Culture Reflex Order NOT NEEDED; Urine RBC <5 /HPF (NONE SEEN)
[2018-03-31] MEDS: ENOXAPARIN 30 MG/0.3 ML SQ SCH (16:01)
[2018-03-31] MEDS: FUROSEMIDE 40 MG/4 ML VIAL IV SCH (16:01)
[2018-03-31] MEDS ORDERED: ALBUTEROL INHALER 60 PUFF/8 GM IH PRN (17:19)
[2018-03-31] MEDS ORDERED: D50W 25 GM/50 ML SYRINGE IV PRN (19:19)
[2018-03-31] MEDS ORDERED: GLUCAGON 1 MG/VIAL IM PRN (19:19)
[2018-03-31] MEDS: INSULIN -REGULAR HUMAN 50 UNIT/0.5 ML ML SQ SCH (21:00)
[2018-03-31] MEDS: LACTULOSE 20 GM/30 ML UCUP PO SCH (21:00)
[2018-03-31] MEDS: BUDESONIDE IH SCH (21:00)
[2018-03-31] MEDS: [UNRECOGNIZED DRUG - OTHER] IH SCH (21:00)
[2018-03-31] MEDS: FORMOTEROL FUMARATE IH SCH (21:00)
--- NOTE | 2018-03-31 21:15 | CON ---
Date of Consultation: 03/31/2018 Chief Complaint: Acute kidney injury. History Of Present Illness: Acute kidney injury, nonoliguric, moderately severe , associated with fluid overload. The patient has underlying chronic kidney disease. Recently, she was admitted for acute kidney injury. Creatinine is up to 2.4 and BUN is 59. The patient presented to the hospital because of severe dyspnea; leg edema, progressively worse; fatigue; and shortness of breath. The patient on previous occasion was treated for fluid overload and congestive heart failure with acute kidney injury. Creatinine level was up to 2.4 and improved to 1.8. The patient has multiple medical problems including congestive heart failure, COPD, diabetes, dyslipidemia, chronic kidney disease stage 4, advancing to stage 5. Recently done echocardiogram showed an ejection fraction of 26%. She has severe congestive heart failure with systolic dysfunction. Echocardiogram showed severe global hypokinesis. Left ventricular ejection fraction was 25% to 30%. The patient has history of noncompliance. She is not adherent to low-sodium diet. Review of Systems: Constitutional: Complains of generalized weakness. Eyes: Denies vision changes. Ears, Nose, Mouth, and Throat: Denies sore throat, earache. Respiratory: Has dyspnea on exertion and dyspnea at rest. Cardiovascular: Denies chest pain, syncope. GI: Denies any nausea, vomiting. : Denies dysuria, hematuria. Musculoskeletal: Denies muscle aches or joint swelling. All other systems reviewed and all are negative. Past Medical History: Coronary artery disease, congestive heart failure, severe systolic dysfunction, anemia, CKD, hypertension, diabetes mellitus, acute kidney injury, chronic kidney disease stage 4, diabetic kidney disease. Past Surgical History: Ovarian cancer, inguinal hernia, tonsillectomy, knee surgery. Social History: Denies tobacco, alcohol, or illicit drugs. Family History: No kidney disease in the family. Physical Examination: General: The patient is awake, alert, follows commands. Eyes: Anicteric sclerae. EOMI. Ears, Nose, Mouth, and Throat: Oral mucosa moist. No pallor. Neck: Supple. No JVD. No bruits. Lungs: Diminished breath sounds at bases. Crackles bilaterally present. Heart: S1, S2. No pericardial friction rub. Abdomen: Soft, benign, obese, nontender. No rebound. Extremities: Edema, anasarca. No evidence of cellulitis. Neurological: Moving extremities. Cranial nerves intact. Psychiatric: Alert and oriented x3. Normal affect. Laboratory Data: Sodium 140, potassium 4.6, chloride 109, CO2 22, BUN 57, creatinine 2.4, magnesium 2.7, calcium 8.8. Impression And Plan: 1. Acute on chronic kidney injury with severe congestive heart failure, cardiorenal syndrome. The patient has respiratory failure with hypoxemia. The patient was started on IV Lasix and metolazone to obtain negative fluid balance and to control anasarca and to treat acute cardiorenal syndrome. The patient may require Lasix drip. Monitor daily weight and fluid balance, continue low Sodium diet. 2. Hypertension. Continue blood pressure medication. Monitor blood pressure and renal panel. Continue beta rubi for congestive heart failure, monitor blood pressure and adjust medications according to blood pressure. 3. Chronic kidney disease stage 4, acute kidney injury. Check renal ultrasound to rule out an evidence of obstructive uropathy. Check UA and evaluate for possible nephritis. 4. Congestive heart failure, systolic dysfunction. The patient is undergoing workup to rule out coronary syndrome. Continue diuretics for volemia control , continue low Sodium diet. FLOWER/DIVYA Voice ID: [id number] Report ID: [id number]
[2018-03-31] MEDS: PARoxetine HCl 10 MG TAB PO SCH (21:42)
[2018-03-31] MEDS: HYDRALAZINE HCL 25 MG TABLET PO SCH (21:42)
[2018-04-01] MEDS: ONDANSETRON 4 MG/2 ML VIAL IV PRN (01:55)
[2018-04-01 04:20] LABS: Absolute Lymphocytes (CBC) 0.7 K/uL (0.7-4.9); Absolute Monocytes 0.7 K/uL (0.1-1.3); Basophils % 0.6 % (0-1.3); Eosinophils % 0.8 % (0-4.4); Hematocrit 29.8 % (36.0-45.0); Lymphocytes % 10.5 % (15.3-44.8); MCH 28.8 pg (27.0-35.0); MCV 87.1 fL (80-100); MPV 9.8 fL (7.6-11.3); Monocytes % 10.8 % (3.3-12.3); RBC Red Blood Cell Count 3.43 M/uL (3.86-4.86)
[2018-04-01 04:28] LABS: Magnesium 2.6 mg/dL (1.8-2.4)
[2018-04-01] MEDS: INSULIN -REGULAR HUMAN 50 UNIT/0.5 ML ML SQ SCH ×4 (07:30→20:19)
--- NOTE | 2018-04-01 08:26 | RAD REPORT ---
EXAM DESCRIPTION: NM - Vent Perfusion VQ Scan - 04/01/2018 7:57 am CLINICAL HISTORY: Chest pain, shortness of breath, elevated D-dimer COMPARISON: V/Q scan March 21 ; portable chest March 31 TECHNIQUE: The patient was administered 20.1 mCi Xenon 133 gas with posterior projection inspiration , equilibrium, and washout views obtained. The patient was then administered 7.2 mCi Tc-99m MAA label ed RBCs followed by standard 8 view protocol. FINDINGS: There is good distribution of the Xenon with no ventilation defects identified. Moderate d iffuse air trapping is present similar to March 21. Patchy distribution of the radiopharmaceutical seen in the perihilar and anterior lung base regions. Anterior left base diminished perfusion can be accounted for by the cardiomegaly. Anterior right bas e diminished activity matches lung parenchymal opacification. The perfusion findings are similar to O ct. IMPRESSION: Low probability V/Q scan for pulmonary embolism. Perfusion images are not significantly different from March 21. No ventilation defects seen. Moderate air trapping is present also similar to March 21.
[2018-04-01] MEDS: BUDESONIDE IH SCH ×2 (09:00→20:19)
[2018-04-01] MEDS: INSULIN GLARGINE 100 UNITS/ML SQ SCH (09:00)
[2018-04-01] MEDS: FORMOTEROL FUMARATE IH SCH ×2 (09:00→20:19)
[2018-04-01] MEDS: [UNRECOGNIZED DRUG - OTHER] IH SCH ×2 (09:00→20:19)
[2018-04-01] MEDS: IRBESARTAN 150 MG TAB PO SCH (09:59)
[2018-04-01] MEDS: NEBIVOLOL HCL 5 MG TAB PO SCH (10:00)
[2018-04-01] MEDS: HYDRALAZINE HCL 25 MG TABLET PO SCH ×2 (10:00→20:18)
[2018-04-01] MEDS: FUROSEMIDE 40 MG/4 ML VIAL IV SCH ×3 (10:00→18:24)
[2018-04-01] MEDS: LACTULOSE 20 GM/30 ML UCUP PO SCH ×2 (10:01→20:18)
--- NOTE | 2018-04-01 13:07 | P.PN ---
Subjective Date of Service: 04/01/18 Chief Complaint: DYSPNEA IS BETTER. Subjective: Improving DEAN IS FEELING LOT BETTER. SHE NOW UNDERSTANDS THAT OBESITY WITH POOR FOOD CONTROL DIABETES, HTN AND RENAL FAILURE GO TOGETHER AND NOW IS AFFECTING HER HEART. Review of Systems 10-point ROS is otherwise unremarkable General: Weakness, Malaise Cardiovascular: Orthopnea, Paroxysmal Noc. Dyspnea Physical Examination - Vital Signs Temperature: 97.2 F Blood Pressure: 176/74 Pulse: 66 Respirations: 18 Pulse Ox (%): 98 - Studies Laboratory Data (last 24 hrs) 04/01/18 03:30: Sodium 140, Potassium 5.0, BUN 55 H, Creatinine 2.30 H, Glucose 151 H, Magnesium 2.6 H 04/01/18 03:30: WBC 6.4, Hgb 9.9 L, Hct 29.8 L, Plt Count 201 03/31/18 12:18: Sodium 140, Potassium 4.6, BUN 57 H, Creatinine 2.40 H, Glucose 170 H, Phosphorus 4.1, Magnesium 2.7 H D, Total Bilirubin 0.7, AST 23, ALT 24, Alkaline Phosphatase 308 H Assessment And Plan - Current Problems (Diagnosis) (1) Chronic kidney disease (CKD) stage G4/A1, severely decreased glomerular filtration rate (GFR) between 15-29 mL/min/1.73 square meter and albuminuria creatinine ratio less than 30 mg/g Current Visit: No Status: Chronic Plan: STABLE BUT WILL END UP ON DIALYSIS EVEN WITH LASIX 80 MGPO BID SHE IS NOT ABLE TO STAY OUT OF CHF. (2) Congestive cardiomyopathy Current Visit: No Status: Chronic Plan: SHE IS STILL NOT EATING WELL. SHE CLAIMED THAT SHE IS WATCHING HER DIET BUT WHEN ASKED SHE SAYS SHE EATS IN [employer] DAILY. (3) Hypertension Current Visit: No Status: Chronic
--- NOTE | 2018-04-01 13:13 | PN ---
Date of Progress Note: 04/01/2018 History: The patient was admitted with congestive heart failure, acute kidney injury on chronic kidn ey disease secondary to cardiorenal. The patient had advanced congestive heart failure. The patient was diuresed yesterday. Had good urine output. The patient known to have ejection fraction of 25-3 0%. Physical Examination: Vital Signs: When I saw the patient, blood pressure of 161/67, pulse of 65. The patient had urine o utput of 4 L over the night, as weight-mcleod the patient lost 8 pounds in 1 day. Chest: Crackles bilateral. Heart: S1, S2. Systolic murmur. Abdomen: Soft. Nontender. Extremities: +3 edema. Laboratory Data: WBC 9.9, H and H 29.8. Sodium 140, potassium 5, bicarb 28, BUN 55, creatinine 2.3, calcium 8.6, magnesium 2.6. PTH 176. TSH on the previous admission 1.3. Her SPEP was negative. S he has nephrotic range proteinuria. Assessment And Plan: 1.Acute kidney injury secondary to cardiorenal. The patient is still over volume. I am going to go ahead and increase her Lasix to be every 8 hours, and we will add metolazone. We will continue to m onitor the patient closely to establish better volume control for the patient. 2.Hypertension, controlled not optimal. We will utilize blood pressure for more diuresis. Given th e congestive heart failure, I am going to start the patient on nitroglycerin. Could not add spironol actone given the patient had marginal hyperkalemia. 3.Anasarca, secondary to proteinuria, cardiorenal. Continue diuresis as above. We will continue fl uid restriction and we will follow up. 4.Congestive heart failure, as above. DEAN Voice ID: [id number] Report ID: [id number]
[2018-04-01] MEDS: ENOXAPARIN 30 MG/0.3 ML SQ SCH (17:02)
[2018-04-01] MEDS: PARoxetine HCl 10 MG TAB PO SCH (20:18)
[2018-04-02] MEDS: FUROSEMIDE 40 MG/4 ML VIAL IV SCH ×2 (04:24→11:00)
[2018-04-02 05:50] LABS: Absolute Monocytes 0.5 K/uL (0.1-1.3); Absolute Neutrophil 2.6 K/uL (1.8-8.0); Basophils % 0.9 % (0-1.3); Eosinophils % 2.3 % (0-4.4); Hematocrit 26.3 % (36.0-45.0); Lymphocytes % 23.3 % (15.3-44.8); MCH 28.6 pg (27.0-35.0); MCV 86.6 fL (80-100); MPV 9.7 fL (7.6-11.3); Monocytes % 12.7 % (3.3-12.3); RBC Red Blood Cell Count 3.04 M/uL (3.86-4.86)
[2018-04-02 06:03] LABS: Albumin 2.6 g/dL (3.4-5.0); Magnesium 2.6 mg/dL (1.8-2.4); Phosphorus 4.9 mg/dL (2.5-4.9); Potassium 4.2 mmol/L (3.5-5.1)
[2018-04-02 07:04] LABS: Urine Total Volume 24 Hours 1250 ml
[2018-04-02 07:11] LABS: UR PROTEIN 205 mg/dL (<11.9)
[2018-04-02] MEDS: INSULIN -REGULAR HUMAN 50 UNIT/0.5 ML ML SQ SCH ×4 (07:30→20:43)
[2018-04-02] MEDS: ONDANSETRON 4 MG/2 ML VIAL IV PRN (08:15)
[2018-04-02] MEDS: INSULIN GLARGINE 100 UNITS/ML SQ SCH (08:19)
[2018-04-02] MEDS: BUDESONIDE IH SCH ×2 (08:32→20:09)
[2018-04-02] MEDS: FORMOTEROL FUMARATE IH SCH ×2 (08:32→20:09)
[2018-04-02] MEDS: [UNRECOGNIZED DRUG - OTHER] IH SCH ×2 (08:32→20:09)
[2018-04-02] MEDS: HYDRALAZINE HCL 25 MG TABLET PO SCH ×2 (08:40→20:43)
[2018-04-02] MEDS: IRBESARTAN 150 MG TAB PO SCH (08:41)
[2018-04-02] MEDS: LACTULOSE 20 GM/30 ML UCUP PO SCH (08:42)
[2018-04-02] MEDS: NEBIVOLOL HCL 5 MG TAB PO SCH (08:42)
[2018-04-02] MEDS: NITROGLYCERIN 0.2 MG/HR (5 MG) PATCH TD SCH (08:45)
[2018-04-02] MEDS ORDERED: LACTULOSE 20 GM/30 ML UCUP PO ONE (10:45)
[2018-04-02] MEDS: MAGNESIUM HYDROXIDE 8% 30 ML PO SCH (11:31)
[2018-04-02] MEDS: POLYETHYL GLY 3350 17 GM/DOSE PO SCH (11:31)
[2018-04-02] MEDS ORDERED: BUMETANIDE 1 MG/4 ML VIAL IV SCH (12:00)
--- NOTE | 2018-04-02 12:35 | CON ---
Date of Consultation: 04/01/2018 Reason For Consultation: Congestive heart failure. History Of Present Illness: Ms. De Jesus is a 72-year-old [place] woman with history of hype rtension, diabetes, dyslipidemia, renal insufficiency, was admitted about 2 weeks ago with congestive heart failure, ejection fraction of 26%. She was discharged home only to come back with some sympto ms of CHF documented by chest x-ray and clinical findings. She had a V/Q scan to rule out PE which w as negative. She had a renal ultrasound, which was negative. EKG showed sinus rhythm with nonspecif ic changes. Had PND, orthopnea, some mild pedal edema. No syncope, no chest pain and no palpitation . Allergies: SHE IS ALLERGIC TO CODEINE. Review of Systems: Negative. Social History: Negative. Family History: Negative. Medications: At home include Bystolic, nifedipine, Paxil, inhalers, Lasix, hydralazine, insulin and Avapro. Physical Examination: Vital Signs: Blood pressure is 161/67, sinus rhythm, afebrile. HEENT: Negative. Neck: Supple, with no bruit. Chest: Reveals some rales at the bases. Cardiac: Revealed a regular rhythm and rate with an S3 gallops. Abdomen: Benign. Extremities: Revealed no clubbing or cyanosis, 1+ edema. Diagnostic Data: Creatinine is 2.30, D-dimer is 805. BNP was 5260, glucose 150, hemoglobin 9.9. Ch est x-ray shows CHF. V/Q scan is normal. Renal Doppler is normal. EKG showed sinus rhythm. Her present medications include Lasix, Lovenox, hydralazine, Avapro and Bystolic. Impression And Plan: 1.[id number] systolic congestive heart failure. 2.Renal insufficiency, stage 3. 3.Elevated BNP and D-dimer secondary to the congestive heart failure. 4.Anemia. 5.Hypertension. 6.Diabetes. 7.Dyslipidemia. Ms. De Jesus presents a challenge both from renal and cardiac standpoint. She really needs to have a heart catheterization to evaluate her coronary anatomy. She may be a candidate for defibrillator. Her renal insufficiency makes it hard for us to do coronary angiography without jeopardizing her brock al function. I will continue her present regimen right now with Lasix and her Avapro. I would defin itely not use nifedipine that she was taking at home and I would suggest changing the Bystolic to car vedilol. We will discuss further with Dr. Lucio and Nephrology prior to making any further plans. MARISSA Voice ID: [id number] Report ID: [id number]
--- NOTE | 2018-04-02 15:00 | ECHO ---
HEIGHT: 5 ft 2 in WEIGHT: 211 lb 8 oz DATE OF STUDY: 04/02/[address]: Albaro Hylton MD 2-DIMENSIONAL: YES M.MODE: YES DOPPLER: YES COLOR FLOW: YES TDS: PORTABLE: DEFINITY: BUBBLE STUDY: DIAGNOSIS: CONGESTIVE HEART FAILURE CARDIAC HISTORY: CATHERIZATION: NO SURGERY: NO PROSTHETIC VALVE: NO PACEMAKER: NO MEASUREMENTS (cm) DIASTOLIC (NORMALS) SYSTOLIC (NORMALS) IVSd 1.3 (0.6-1.2) LA Diam 4.9 (1.9-4.0) LVEF 60-69% LVIDd 5.0 (3.5-5.7) LVIDs 4.1 (2.0-3.5) %FS % LVPWd 1.3 (0.6-1.2) Ao Diam 2.6 (2.0-3.7) 2 DIMENSIONAL ASSESSMENT: RIGHT ATRIUM: NORMAL LEFT ATRIUM: DILATED RIGHT VENTRICLE: NORAML LEFT VENTRICLE: LEFT VENTRICULAR HYPERTROPHY TRICUSPID VALVE: NORMAL MITRAL VALVE: NORMAL PULMONIC VALVE: NORMAL AORTIC VALVE: SCLEROSIS PERICARDIAL EFFUSION: NONE AORTIC ROOT: NORMAL LEFT VENTRICULAR WALL MOTION: NORMAL DOPPLER/COLOR FLOW: NO AORTIC STENOSIS OR AORTIC REGURGITATION. MILD MITRAL AND TRICUSPID REGURGITATION. MODERATE PULMONARY HYPERTENSION. ESTIMATED RIGHT VENTRICULAR SYSTOLIC PRESSURE 55 mmHg. COMMENTS: NORMAL LEFT VENTRICULAR SYSTOLIC PRESSURE. DILATED LEFT ATRIUM. LEFT VENTRICULAR HYPERTROPHY. AORTIC SCLEROSIS WITH NO AORTIC STENOSIS OR AORTIC REGURGITATION. MILD MITRAL AND TRICUSPID REGURGITATION. MODERATE PULMONARY HYPERTROPHY. TECHNOLOGIST: ELAN LOMELI
--- NOTE | 2018-04-02 16:11 | PN ---
Date of Progress Note: 04/02/2018 Subjective: The patient was admitted with CHF exacerbation, anasarca. Yesterday, we increased her L asix. The patient is still not peeing that much. Still has significant anasarca. Physical Examination: Vital Signs: Blood pressure 172/79, pulse of 66. Chest: Crackles bilateral. Heart: S1, S2. Systolic murmur. Abdomen: Soft, nontender. Extremities: +3 edema. Laboratory Data: WBC 4.3, H and H 8.7/26.3, platelets of 191. Sodium 141, potassium 4.2, bicarb 27, BUN 63, creatinine 2.8, calcium 8.2, phosphorus 4.9, magnesium 2.6, albumin 2.6. The patient had ur ine output of 1400. Current Medications: The patient on its include Lasix 80 mg t.i.d., albuterol, Lovenox, hydralazine 25 b.i.d., irbesartan, Bystolic, nitroglycerin, lactulose, and insulin. Assessment And Plan: 1.Acute kidney injury on chronic kidney disease secondary to cardiorenal over volume. I am going to start the patient on Bumex and we will add metolazone to establish better volume control. We will f ollow up the patient. Keep the patient on a fluid restriction. 2.Hypertension, uncontrolled. The patient was started on hydralazine. We will backup on TELLO inhibi tor/ARB given the worsening kidney function and we will follow up. 3.Congestive heart failure with exacerbation over volume. Continue nitroglycerin. We will try to e stablish better volume control if the patient fail on Bumex. The patient will need Lasix drip and we will follow up. 4.Anasarca as above. Thank you Dr. Lucio for allowing us to participate in the care of your patient. CONRAD/DIVYA Voice ID: [id number] Report ID: [id number]
--- NOTE | 2018-04-02 16:20 | CON ---
CARDIOLOGY CONSULT History Of Present Illness: Ms. De Jesus was placed in the hospital by Dr. Lucio because of dyspnea , swelling. She has really had months or years since she has had no pedal edema, but recently it has gotten worse and she has dyspnea with exertion. She has orthopnea and paroxysmal nocturnal dyspnea. She denies chest pain. She has a history of diabetes, hypertension, renal insufficiency. Creatini ne is above [address] Perkins or Dr. Hooks regularly as an outpatient, bu t has progressively worsening renal function despite the best efforts. Her listed medications are al buterol, Symbicort, Paxil, lactulose, insulin, nebivolol, furosemide, nifedipine, irbesartan, hydrala zine, lactulose, polyethylene glycol, magnesium oxide. Since being in the hospital, this patient is receiving Lasix 80 mg IV and it is not mobilizing much fluid. The patient has not had an echocardiog benedicto this admission. Her laboratory exam consistent with renal insufficiency. Estimated GFR 17, crea tinine 2.8, BUN 63, b-natriuretic peptide ProBNP is 5260. Physical Examination: General: She is 5 feet 2 inches, 211 pounds. She does not appear to be in distress. Lungs: Her lungs reveal decreased breath sounds both bases. Heart Exam: Regular rate and rhythm. No significant murmur. Abdomen: Soft. Extremities: 3 to 4+ edema. There is no cellulitis or venous insufficiency. Skin: Shiny, atrophic appearing. Distal pulses not palpable. Diagnostic Data: The electrocardiogram shows sinus rhythm, rightward axis, questionable anterior inf arct. I would recommend we do an echo, teach her about low-sodium intake. Diuresis will help her br eathe better, it will likely make her renal function worse that is the pay off that everybody seems t o agree is necessary. I cannot think of anything that would help her other than diurese her and unnecessary begin dialysis. LUKAS/DIVYA Voice ID: [id number] Report ID: [id number]
[2018-04-02] MEDS: ENOXAPARIN 30 MG/0.3 ML SQ SCH (17:21)
--- NOTE | 2018-04-02 17:53 | P.PN ---
Subjective Date of Service: 04/02/18 Chief Complaint: DYSPNEA IS BETTER. Subjective: Improving DEAN IS FEELING LOT BETTER. SHE NOW UNDERSTANDS THAT OBESITY WITH POOR FOOD CONTROL DIABETES, HTN AND RENAL FAILURE GO TOGETHER AND NOW IS AFFECTING HER HEART. SHE IS LOT BETTER. SHE EATS OUTSIDE FOOD AND KNOWS THAT SHE GETS MORE SALT AND FAT/CARBS THAN SHE NEEDS. Review of Systems 10-point ROS is otherwise unremarkable General: Weakness, Malaise Physical Examination - Vital Signs Temperature: 97.8 F Blood Pressure: 157/67 Pulse: 64 Respirations: 23 Pulse Ox (%): 98 - Physical Exam General: Alert, Acute distress, Obese HEENT: Atraumatic, PERRLA, EOMI Neck: Supple, JVD not distended Respiratory: Clear to auscultation bilaterally, Normal air movement Cardiovascular: Regular rate/rhythm, Normal S1 S2 Gastrointestinal: Normal bowel sounds, No tenderness Musculoskeletal: No tenderness Integumentary: No rashes Neurological: Normal speech, Normal tone, Normal affect Lymphatics: No axilla or inguinal lymphadenopathy - Studies Laboratory Data (last 24 hrs) 04/02/18 05:12: Sodium 141, Potassium 4.2, BUN 63 H, Creatinine 2.80 H, Glucose 133 H, Phosphorus 4.9, Magnesium 2.6 H 04/02/18 05:12: WBC 4.3 D, Hgb 8.7 L, Hct 26.3 L, Plt Count 191 Microbiology Data (last 24 hrs): 03/31/18 14:45 Clean Catch Urine Commerce Count - Final BETWEEN 10,000 & 100,000 CFU/ML 03/31/18 14:45 Clean Catch Urine - Final Medications List Reviewed: Yes Assessment And Plan - Current Problems (Diagnosis) (1) Chronic kidney disease (CKD) stage G4/A1, severely decreased glomerular filtration rate (GFR) between 15-29 mL/min/1.73 square meter and albuminuria creatinine ratio less than 30 mg/g Current Visit: No Status: Chronic Plan: STABLE BUT WILL END UP ON DIALYSIS EVEN WITH LASIX 80 MGPO BID SHE IS NOT ABLE TO STAY OUT OF CHF. (2) Congestive cardiomyopathy Current Visit: No Status: Chronic Plan: SHE IS STILL NOT EATING WELL. SHE CLAIMED THAT SHE IS WATCHING HER DIET BUT WHEN ASKED SHE SAYS SHE EATS IN [employer] DAILY. SHE PROMISES TO COOK AND EAT WELL WITH LOW SALT ORDERS ARE GIVEN TO LOSE WEIGHT MANY TIMES IN THE PAST. WITH LOSS OF WEIGHT SHE WILL LIVE LONGER. (3) Hypertension Current Visit: No Status: Chronic
[2018-04-02] MEDS: FUROSEMIDE 100 MG in NA CHLORIDE 0.9% 90 ML IV SCH ×2 (20:08→22:59)
[2018-04-02] MEDS: PARoxetine HCl 10 MG TAB PO SCH (20:43)
[2018-04-02] MEDS: DIPHENHYDRAMINE 25 MG TAB/CAP PO PRN (20:43)
[2018-04-03] MEDS: FUROSEMIDE 100 MG in NA CHLORIDE 0.9% 90 ML IV SCH ×5 (01:06→13:03)
[2018-04-03 04:18] LABS: Absolute Lymphocytes (CBC) 0.9 K/uL (0.7-4.9); Absolute Monocytes 0.5 K/uL (0.1-1.3); Basophils % 0.9 % (0-1.3); Eosinophils % 1.9 % (0-4.4); Hematocrit 25.4 % (36.0-45.0); Lymphocytes % 20.5 % (15.3-44.8); MCH 27.8 pg (27.0-35.0); MCV 87.6 fL (80-100); MPV 9.6 fL (7.6-11.3); Monocytes % 11.8 % (3.3-12.3)
[2018-04-03 04:34] LABS: Albumin 2.6 g/dL (3.4-5.0); Magnesium 2.5 mg/dL (1.8-2.4); Phosphorus 6.3 mg/dL (2.5-4.9); Potassium 4.3 mmol/L (3.5-5.1)
[2018-04-03] MEDS: INSULIN -REGULAR HUMAN 50 UNIT/0.5 ML ML SQ SCH ×4 (07:30→21:00)
[2018-04-03] MEDS: FORMOTEROL FUMARATE IH SCH ×2 (09:00→21:00)
[2018-04-03] MEDS: INSULIN GLARGINE 100 UNITS/ML SQ SCH (09:00)
[2018-04-03] MEDS: BUDESONIDE IH SCH ×2 (09:00→21:00)
[2018-04-03] MEDS: [UNRECOGNIZED DRUG - OTHER] IH SCH ×2 (09:00→21:00)
[2018-04-03] MEDS: POLYETHYL GLY 3350 17 GM/DOSE PO SCH (09:51)
[2018-04-03] MEDS: MAGNESIUM HYDROXIDE 8% 30 ML PO SCH (09:52)
[2018-04-03] MEDS: NITROGLYCERIN 0.2 MG/HR (5 MG) PATCH TD SCH (09:52)
[2018-04-03] MEDS: IRBESARTAN 150 MG TAB PO SCH (09:53)
[2018-04-03] MEDS: LACTULOSE 20 GM/30 ML UCUP PO SCH (09:53)
[2018-04-03] MEDS: HYDRALAZINE HCL 25 MG TABLET PO SCH ×2 (09:53→21:29)
[2018-04-03] MEDS: NEBIVOLOL HCL 5 MG TAB PO SCH (09:54)
[2018-04-03] MEDS: FUROSEMIDE IV SCH ×4 (15:58→21:15)
[2018-04-03] MEDS: NA CHLORIDE 0.9% IV SCH ×4 (15:58→21:15)
[2018-04-03] MEDS: ENOXAPARIN 30 MG/0.3 ML SQ SCH (17:00)
[2018-04-03] MEDS: PARoxetine HCl 10 MG TAB PO SCH (21:29)
[2018-04-04] MEDS: FUROSEMIDE IV SCH ×14 (01:44→22:15)
[2018-04-04] MEDS: NA CHLORIDE 0.9% IV SCH ×14 (01:44→22:15)
--- NOTE | 2018-04-04 02:16 | PN ---
Date of Progress Note: 04/03/2018 Subjective: The patient was started over the night on Lasix drip. The patient today morning started having better urine output, but her kidney function slightly declined. Physical Examination: Vital Signs: Blood pressure 140/62, pulse of 64. The patient had good urine output and in the last 5 hours has 1200, almost 200 per hour. Chest: Crackles bilateral. Heart: S1, S2. Regular. Abdomen: Soft and nontender. Extremities: +2 edema. Laboratory Data: WBC 4.6, H and H 8.1/25.4, and platelets 171. Sodium 140, potassium 4.3, bicarb 28 , BUN 74, creatinine 3.1, GFR of 15, calcium 7.7, phosphorus 6.3, and magnesium 2.1. Medications: Current medications the patient on include; 1.Lasix drip. 2.Albuterol. 3.Lovenox. 4.Bystolic. 5.Nitroglycerin. 6.Lactulose. 7.Loperamide. 8.Zosyn. Assessment And Plan: 1.Acute kidney injury on advanced chronic kidney disease secondary to cardiorenal, still over-volume with worsening kidney function. I had discussed with the patient that if kidney function continues to decline, the patient may need to initiate on dialysis. The patient agreed. We will monitor till tomorrow. If the kidney function declines further, we will consult Surgery for PermCath and initiati ng dialysis. 2.Hypertension, controlled, not optimal. We will utilize blood pressure for more diuresis. 3.Anemia of chronic kidney disease with iron-deficiency anemia, was started on iron. 4.Secondary hyperparathyroidism. I am going to start the patient on Tums, and we will follow up. 5.Congestive heart failure, diastolic dysfunction. We will try to establish better volume control. We will follow up with Cardiology. 6.Hypocalcemia, corrected calcium within normal range. We would start the patient on Tums. DEAN Voice ID: [id number] Report ID: [id number]
[2018-04-04] MEDS: ACETAMINOPHEN 325 MG TABLET PO PRN ×2 (04:28→22:36)
[2018-04-04 06:57] LABS: Absolute Lymphocytes (CBC) 0.9 K/uL (0.7-4.9); Absolute Monocytes 0.5 K/uL (0.1-1.3); Basophils % 0.7 % (0-1.3); Eosinophils % 1.8 % (0-4.4); Hematocrit 28.6 % (36.0-45.0); Lymphocytes % 20.6 % (15.3-44.8); MCV 87.1 fL (80-100); MPV 9.6 fL (7.6-11.3); Monocytes % 10.8 % (3.3-12.3); RBC Red Blood Cell Count 3.28 M/uL (3.86-4.86)
[2018-04-04 07:01] LABS: Albumin 2.9 g/dL (3.4-5.0); Magnesium 2.7 mg/dL (1.8-2.4); Phosphorus 5.5 mg/dL (2.5-4.9); Potassium 3.9 mmol/L (3.5-5.1)
[2018-04-04] MEDS: INSULIN -REGULAR HUMAN 50 UNIT/0.5 ML ML SQ SCH ×4 (07:30→21:00)
--- NOTE | 2018-04-04 07:33 | P.PN ---
Subjective Date of Service: 04/03/18 Chief Complaint: STILL WEAK AND DYSPNEA AT REST BUT A LOT BETTER. Subjective: Improving DEAN IS FEELING LOT BETTER. SHE NOW UNDERSTANDS THAT OBESITY WITH POOR FOOD CONTROL DIABETES, HTN AND RENAL FAILURE GO TOGETHER AND NOW IS AFFECTING HER HEART. SHE IS LOT BETTER. SHE EATS OUTSIDE FOOD AND KNOWS THAT SHE GETS MORE SALT AND FAT/CARBS THAN SHE NEEDS. Review of Systems 10-point ROS is otherwise unremarkable General: Weakness, Malaise Respiratory: Shortness of Breath Physical Examination - Vital Signs Temperature: 97.8 F Blood Pressure: 154/69 Pulse: 70 Respirations: 20 Pulse Ox (%): 100 - Physical Exam General: Alert, Mild distress, Obese HEENT: Atraumatic, PERRLA, EOMI Neck: Supple, JVD not distended Respiratory: Clear to auscultation bilaterally, Normal air movement Cardiovascular: Regular rate/rhythm, Normal S1 S2 Gastrointestinal: Normal bowel sounds, No tenderness Musculoskeletal: No tenderness Integumentary: No rashes Neurological: Normal speech, Normal tone, Normal affect Lymphatics: No axilla or inguinal lymphadenopathy - Studies Laboratory Data (last 24 hrs) 04/04/18 06:29: Sodium 142, Potassium 3.9, BUN 77 H, Creatinine 2.70 H, Glucose 147 H, Phosphorus 5.5 H, Magnesium 2.7 H 04/04/18 06:29: WBC 4.5, Hgb 9.2 L, Hct 28.6 L, Plt Count 176 Medications List Reviewed: Yes Assessment And Plan - Current Problems (Diagnosis) (1) Chronic kidney disease (CKD) stage G4/A1, severely decreased glomerular filtration rate (GFR) between 15-29 mL/min/1.73 square meter and albuminuria creatinine ratio less than 30 mg/g Current Visit: No Status: Chronic Plan: STABLE BUT WILL END UP ON DIALYSIS EVEN WITH LASIX 80 MGPO BID SHE IS NOT ABLE TO STAY OUT OF CHF. (2) Congestive cardiomyopathy Current Visit: No Status: Chronic Plan: SHE IS STILL NOT EATING WELL. SHE CLAIMED THAT SHE IS WATCHING HER DIET BUT WHEN ASKED SHE SAYS SHE EATS IN [employer] DAILY. SHE PROMISES TO COOK AND EAT WELL WITH LOW SALT ORDERS ARE GIVEN TO LOSE WEIGHT MANY TIMES IN THE PAST. WITH LOSS OF WEIGHT SHE WILL LIVE LONGER. CONGESTIVE CARDIOMYOPATHY MEANS- SYSTOLIC HEART FAILURE- THIS PATIENT HAS ACUTE ON CHRONIC AT THIS POINT. FOR HIM DEPT. SHE WILL EAT BETTER, SHE SAYS NOW. (3) Hypertension Current Visit: No Status: Chronic
[2018-04-04] MEDS: NEBIVOLOL HCL 5 MG TAB PO SCH (08:01)
[2018-04-04] MEDS: POLYETHYL GLY 3350 17 GM/DOSE PO SCH (08:01)
[2018-04-04] MEDS: HYDRALAZINE HCL 25 MG TABLET PO SCH ×2 (08:02→21:22)
[2018-04-04] MEDS: NITROGLYCERIN 0.2 MG/HR (5 MG) PATCH TD SCH (08:03)
[2018-04-04] MEDS: MAGNESIUM HYDROXIDE 8% 30 ML PO SCH (08:04)
[2018-04-04] MEDS: LACTULOSE 20 GM/30 ML UCUP PO SCH (08:04)
[2018-04-04] MEDS: BUDESONIDE IH SCH ×2 (08:05→21:00)
[2018-04-04] MEDS: FORMOTEROL FUMARATE IH SCH ×2 (08:05→21:00)
[2018-04-04] MEDS: [UNRECOGNIZED DRUG - OTHER] IH SCH ×2 (08:05→21:00)
[2018-04-04] MEDS: INSULIN GLARGINE 100 UNITS/ML SQ SCH (08:05)
[2018-04-04] MEDS: CALCIUM CARBONATE CHEW 500MG TAB PO SCH ×3 (08:08→16:18)
[2018-04-04] MEDS ORDERED: POTASSIUM CL SA 10 MEQ TAB PO ONE (09:00)
--- NOTE | 2018-04-04 14:28 | P.PN ---
Subjective Date of Service: 04/04/18 Chief Complaint: STILL WEAK AND DYSPNEA AT REST BUT A LOT BETTER. Today No new complaints no SOB edema improved excellent UO ~2.0 liters last 24hrs Cr improved to 2.7 will cont lasix drip Physical Examination - Vital Signs Temperature: 97.2 F Blood Pressure: 161/72 Pulse: 62 Respirations: 20 Pulse Ox (%): 100 - Physical Exam General: Oriented x3 Neck: Supple, Without JVD or thyroid abnormality Respiratory: Clear to auscultation bilaterally Cardiovascular: Regular rate/rhythm, Normal S1 S2, Edema - Studies Laboratory Data (last 24 hrs) 04/04/18 06:29: Sodium 142, Potassium 3.9, BUN 77 H, Creatinine 2.70 H, Glucose 147 H, Phosphorus 5.5 H, Magnesium 2.7 H 04/04/18 06:29: WBC 4.5, Hgb 9.2 L, Hct 28.6 L, Plt Count 176 Medications List Reviewed: Yes Assessment And Plan - Current Problems (Diagnosis) (1) CHF (congestive heart failure) Onset Date: 03/20/18 Current Visit: No Status: Acute (2) Edema Onset Date: 03/20/18 Current Visit: No Status: Acute (3) Hx of ovarian cancer Current Visit: No Status: Acute (4) Morbid obesity with BMI of 40.0-44.9, adult Current Visit: No Status: Acute (5) CKD (chronic kidney disease) Current Visit: No Status: Chronic Qualifiers: Chronic kidney disease stage: stage 4 (severe) Qualified Code(s): N18.4 - Chronic kidney disease, stage 4 (severe) - Plan Acute kidney injury on CKD CKD likely due to HTN nephrosclerosis Sherly likely 2/2 cardiorenal syndrome baseline Cr ~2.0 this admission 2.4>2.7>3.1 IV lasix >2.7 UA : no RBC 24 hr urine for prot 2.5gm previous w/u with [facility], ANCA, Anti DS, c3,c4 hep panel an HIV -ve no need for EDUCATIONAL ADVISER at this time will send SPEP, IEF and k/L Hypertension, elevated , will monitor for now as it might improve with diuresis Anemia of chronic kidney disease with iron-deficiency anemia, was started on iron. b12 def will supply will check Iron panel and folate Secondary hyperparathyroidism. I am going to start the patient on Tums, and we will follow up. corrected CA ok Congestive heart failure, diastolic dysfunction. We will try to establish better volume control. We will follow up with Cardiology. TTE; EF 60%
[2018-04-04] MEDS: ENOXAPARIN 30 MG/0.3 ML SQ SCH (16:18)
--- NOTE | 2018-04-04 18:06 | P.PN ---
Subjective Date of Service: 04/04/18 Chief Complaint: STILL WEAK AND DYSPNEA AT REST BUT A LOT BETTER. Subjective: No new changes, C/O voiced (EDEMA.) DEAN IS FEELING LOT BETTER. SHE NOW UNDERSTANDS THAT OBESITY WITH POOR FOOD CONTROL DIABETES, HTN AND RENAL FAILURE GO TOGETHER AND NOW IS AFFECTING HER HEART. SHE IS LOT BETTER. SHE EATS OUTSIDE FOOD AND KNOWS THAT SHE GETS MORE SALT AND FAT/CARBS THAN SHE NEEDS. Review of Systems 10-point ROS is otherwise unremarkable General: Weakness, Malaise Respiratory: Shortness of Breath Physical Examination - Vital Signs Temperature: 99.0 F Blood Pressure: 133/63 Pulse: 61 Respirations: 18 Pulse Ox (%): 100 - Physical Exam General: Alert, Mild distress, Obese HEENT: Atraumatic, PERRLA, EOMI Neck: Supple, JVD not distended Respiratory: Clear to auscultation bilaterally, Normal air movement Cardiovascular: Regular rate/rhythm, Normal S1 S2 Gastrointestinal: Normal bowel sounds, No tenderness Musculoskeletal: No tenderness Integumentary: No rashes Neurological: Normal speech, Normal tone, Normal affect Lymphatics: No axilla or inguinal lymphadenopathy - Studies Laboratory Data (last 24 hrs) 04/04/18 06:29: Sodium 142, Potassium 3.9, BUN 77 H, Creatinine 2.70 H, Glucose 147 H, Phosphorus 5.5 H, Magnesium 2.7 H 04/04/18 06:29: WBC 4.5, Hgb 9.2 L, Hct 28.6 L, Plt Count 176 Medications List Reviewed: Yes Assessment And Plan - Current Problems (Diagnosis) (1) Chronic kidney disease (CKD) stage G4/A1, severely decreased glomerular filtration rate (GFR) between 15-29 mL/min/1.73 square meter and albuminuria creatinine ratio less than 30 mg/g Current Visit: No Status: Chronic Plan: STABLE BUT WILL END UP ON DIALYSIS EVEN WITH LASIX 80 MGPO BID SHE IS NOT ABLE TO STAY OUT OF CHF. (2) Congestive cardiomyopathy Current Visit: No Status: Chronic Plan: SHE IS STILL NOT EATING WELL. SHE CLAIMED THAT SHE IS WATCHING HER DIET BUT WHEN ASKED SHE SAYS SHE EATS IN [employer] DAILY. SHE PROMISES TO COOK AND EAT WELL WITH LOW SALT ORDERS ARE GIVEN TO LOSE WEIGHT MANY TIMES IN THE PAST. WITH LOSS OF WEIGHT SHE WILL LIVE LONGER. CONGESTIVE CARDIOMYOPATHY MEANS- SYSTOLIC HEART FAILURE- THIS PATIENT HAS ACUTE ON CHRONIC AT THIS POINT. FOR HIM DEPT. SHE WILL EAT BETTER, SHE SAYS NOW. LASIX DRIP BY DR TIM STABLE BUT EDEMA MODERATE. (3) Hypertension Current Visit: No Status: Chronic
[2018-04-04] MEDS: PARoxetine HCl 10 MG TAB PO SCH (21:22)
[2018-04-05] MEDS: FUROSEMIDE IV SCH ×6 (04:14→20:00)
[2018-04-05] MEDS: NA CHLORIDE 0.9% IV SCH ×6 (04:14→20:00)
[2018-04-05] MEDS: ACETAMINOPHEN 325 MG TABLET PO PRN (04:34)
[2018-04-05 06:13] LABS: Absolute Lymphocytes (CBC) 0.7 K/uL (0.7-4.9); Absolute Monocytes 0.6 K/uL (0.1-1.3); Absolute Neutrophil 3.7 K/uL (1.8-8.0); Basophils % 0.9 % (0-1.3); Eosinophils % 1.8 % (0-4.4); Hematocrit 29.3 % (36.0-45.0); Lymphocytes % 13.7 % (15.3-44.8); MCH 28.2 pg (27.0-35.0); MCV 86.1 fL (80-100); MPV 9.5 fL (7.6-11.3); Monocytes % 10.8 % (3.3-12.3); RBC Red Blood Cell Count 3.41 M/uL (3.86-4.86)
[2018-04-05 06:26] LABS: Albumin 3.1 g/dL (3.4-5.0); Magnesium 2.8 mg/dL (1.8-2.4); Potassium 4.2 mmol/L (3.5-5.1)
[2018-04-05 06:39] LABS: Ferritin 121.7 ng/mL (8-388); Folic Acid, (Folate) 7.4 ng/mL (3.1-17.5)
[2018-04-05] MEDS: INSULIN -REGULAR HUMAN 50 UNIT/0.5 ML ML SQ SCH ×4 (07:30→20:55)
[2018-04-05] MEDS: BUDESONIDE IH SCH ×2 (09:00→20:55)
[2018-04-05] MEDS: INSULIN GLARGINE 100 UNITS/ML SQ SCH (09:00)
[2018-04-05] MEDS: FORMOTEROL FUMARATE IH SCH ×2 (09:00→20:55)
[2018-04-05] MEDS: [UNRECOGNIZED DRUG - OTHER] IH SCH ×2 (09:00→20:55)
[2018-04-05] MEDS: CALCIUM CARBONATE CHEW 500MG TAB PO SCH ×3 (09:28→16:55)
[2018-04-05] MEDS: POLYETHYL GLY 3350 17 GM/DOSE PO SCH (09:29)
[2018-04-05] MEDS: MAGNESIUM HYDROXIDE 8% 30 ML PO SCH (09:29)
[2018-04-05] MEDS: LACTULOSE 20 GM/30 ML UCUP PO SCH (09:29)
[2018-04-05] MEDS: NEBIVOLOL HCL 5 MG TAB PO SCH (09:30)
[2018-04-05] MEDS: HYDRALAZINE HCL 25 MG TABLET PO SCH ×2 (09:30→20:55)
[2018-04-05] MEDS: CYANOCOBALAMIN 1000MCG/ML INJ SQ SCH (09:31)
--- NOTE | 2018-04-05 10:08 | P.PN ---
Subjective Date of Service: 04/05/18 Chief Complaint: STILL WEAK AND DYSPNEA AT REST BUT A LOT BETTER. Subjective: No new changes DEAN IS FEELING LOT BETTER. SHE NOW UNDERSTANDS THAT OBESITY WITH POOR FOOD CONTROL DIABETES, HTN AND RENAL FAILURE GO TOGETHER AND NOW IS AFFECTING HER HEART. SHE IS LOT BETTER. SHE EATS OUTSIDE FOOD AND KNOWS THAT SHE GETS MORE SALT AND FAT/CARBS THAN SHE NEEDS. FOOT PAIN L SIDE. MODERATE. EDEMA IS NOT BETTER YET. Review of Systems 10-point ROS is otherwise unremarkable General: Weakness, Malaise Musculoskeletal: Foot Pain Physical Examination - Vital Signs Temperature: 98.2 F Blood Pressure: 178/71 Pulse: 58 Respirations: 20 Pulse Ox (%): 100 - Physical Exam General: Alert, Other HEENT: Atraumatic, PERRLA, EOMI Neck: Supple, JVD not distended Respiratory: Clear to auscultation bilaterally, Normal air movement Cardiovascular: Regular rate/rhythm, Normal S1 S2 Gastrointestinal: Normal bowel sounds, No tenderness Musculoskeletal: No tenderness Integumentary: No rashes Neurological: Normal speech, Normal tone, Normal affect Lymphatics: No axilla or inguinal lymphadenopathy - Studies Laboratory Data (last 24 hrs) 04/05/18 05:53: Sodium 141, Potassium 4.2, BUN 76 H, Creatinine 2.90 H, Glucose 197 H, Phosphorus 5.0 H, Magnesium 2.8 H 04/05/18 05:53: WBC 5.1, Hgb 9.6 L, Hct 29.3 L, Plt Count 214 D Medications List Reviewed: Yes Assessment And Plan - Current Problems (Diagnosis) (1) Chronic kidney disease (CKD) stage G4/A1, severely decreased glomerular filtration rate (GFR) between 15-29 mL/min/1.73 square meter and albuminuria creatinine ratio less than 30 mg/g Current Visit: No Status: Chronic Plan: STABLE BUT WILL END UP ON DIALYSIS EVEN WITH LASIX 80 MGPO BID SHE IS NOT ABLE TO STAY OUT OF CHF. (2) Congestive cardiomyopathy Current Visit: No Status: Chronic Plan: SHE IS STILL NOT EATING WELL. SHE CLAIMED THAT SHE IS WATCHING HER DIET BUT WHEN ASKED SHE SAYS SHE EATS IN [employer] DAILY. SHE PROMISES TO COOK AND EAT WELL WITH LOW SALT ORDERS ARE GIVEN TO LOSE WEIGHT MANY TIMES IN THE PAST. WITH LOSS OF WEIGHT SHE WILL LIVE LONGER. CONGESTIVE CARDIOMYOPATHY MEANS- SYSTOLIC HEART FAILURE- THIS PATIENT HAS ACUTE ON CHRONIC AT THIS POINT. FOR HIM DEPT. SHE WILL EAT BETTER, SHE SAYS NOW. LASIX DRIP BY DR TIM STABLE BUT EDEMA MODERATE. ADD ENTRESTTO STOP AVAPRO- DONE. (3) Hypertension Current Visit: No Status: Chronic (4) Left foot pain Current Visit: Yes Status: Acute Plan: POSSIBLE GOUT COLCHICINE PRN. URIC ACID LEVEL. X RAY. NO INJURY NO OPEN AREAS.
[2018-04-05] MEDS: NITROGLYCERIN 0.2 MG/HR (5 MG) PATCH TD SCH (10:48)
[2018-04-05] MEDS: SODIUM CHLORIDE 0.9% 10ML INJ IV PRN (10:51)
[2018-04-05] MEDS: PANTOPRAZOLE 40 MG INJ IVP SCH (10:51)
[2018-04-05] MEDS: SACUBITRIL/VALSARTAN 24/26 MG TAB PO SCH ×2 (10:51→20:55)
--- NOTE | 2018-04-05 11:12 | RAD REPORT ---
EXAM DESCRIPTION: RAD - Foot Left 2 View - 04/05/2018 10:55 am CLINICAL HISTORY: Left foot pain and swelling FINDINGS: Limited two view series obtained Bones are osteoporotic. No fracture or dislocation seen Vascular calcifications Erosive arthritic changes involve the second DIP joint
[2018-04-05] MEDS ORDERED: COLCHICINE 0.6 MG TAB PO ONE (12:33)
[2018-04-05] MEDS: ENOXAPARIN 30 MG/0.3 ML SQ SCH (17:41)
[2018-04-05] MEDS: PARoxetine HCl 10 MG TAB PO SCH (20:55)
--- NOTE | 2018-04-05 23:42 | P.PN ---
Subjective Date of Service: 04/05/18 Chief Complaint: STILL WEAK AND DYSPNEA AT REST BUT A LOT BETTER. Today Lt foot pain over 5th toe can give 1 dose of chochicine X1, with tylenol and consider small dose of steroids if cont to have pain foot CXR ; erosive arthritis Chest CTAB Cr again elevated with elevated Bicarb to 34 Will reduce lasix rate to 5mg/hr if Cr and bicarb cont to trend up then will hold lasix and consider Azteronam F/U CXR Review of Systems Musculoskeletal: Leg Pain Physical Examination - Vital Signs Temperature: 97.1 F Blood Pressure: 109/51 Pulse: 62 Respirations: 19 Pulse Ox (%): 98 - Physical Exam General: Oriented x3 HEENT: Atraumatic Neck: Supple Respiratory: Clear to auscultation bilaterally, Normal air movement Cardiovascular: Edema - Studies Laboratory Data (last 24 hrs) 04/05/18 05:55: Uric Acid 9.1 H 04/05/18 05:53: Sodium 141, Potassium 4.2, BUN 76 H, Creatinine 2.90 H, Glucose 197 H, Phosphorus 5.0 H, Magnesium 2.8 H 04/05/18 05:53: WBC 5.1, Hgb 9.6 L, Hct 29.3 L, Plt Count 214 D Medications List Reviewed: Yes Assessment And Plan - Current Problems (Diagnosis) (1) CHF (congestive heart failure) Onset Date: 03/20/18 Current Visit: No Status: Acute (2) Edema Onset Date: 03/20/18 Current Visit: No Status: Acute (3) Hx of ovarian cancer Current Visit: No Status: Acute (4) Morbid obesity with BMI of 40.0-44.9, adult Current Visit: No Status: Acute (5) CKD (chronic kidney disease) Current Visit: No Status: Chronic Qualifiers: Chronic kidney disease stage: stage 4 (severe) Qualified Code(s): N18.4 - Chronic kidney disease, stage 4 (severe) - Plan Acute kidney injury on CKD CKD likely due to HTN nephrosclerosis Sherly likely 2/2 cardiorenal syndrome baseline Cr ~2.0 this admission 2.4>2.7>3.1 IV lasix >2.7 UA : no RBC 24 hr urine for prot 2.5gm previous w/u with KARLIE, ANCA, Anti DS, c3,c4 hep panel an HIV -ve no need for INDUSTRIAL INSULATOR at this time F/U SPEP, IEF and k/L Hypertension, elevated , will monitor for now as it might improve with diuresis Anemia of chronic kidney disease with iron-deficiency anemia, was started on iron. b12 def will supply will check Iron panel and folate Secondary hyperparathyroidism. I am going to start the patient on Tums, and we will follow up. corrected CA ok Congestive heart failure, diastolic dysfunction. We will try to establish better volume control. We will follow up with Cardiology. TTE; EF 60%
[2018-04-06] MEDS: FUROSEMIDE IV SCH ×2 (06:00)
[2018-04-06] MEDS: NA CHLORIDE 0.9% IV SCH ×2 (06:00)
[2018-04-06 06:19] LABS: Albumin 2.8 g/dL (3.4-5.0); Phosphorus 4.5 mg/dL (2.5-4.9)
[2018-04-06] MEDS: INSULIN -REGULAR HUMAN 50 UNIT/0.5 ML ML SQ SCH ×4 (07:30→21:47)
--- NOTE | 2018-04-06 08:20 | RAD REPORT ---
EXAM DESCRIPTION: RAD - Chest Single View - 04/06/2018 7:02 am CLINICAL HISTORY: Pleural effusion, shortness of breath COMPARISON: March 31 TECHNIQUE: AP portable chest image was obtained 0615 hours . FINDINGS: CHF findings have improved during the interval. There is improved aeration throughout the lung mendes. Central vasculature and lung markings are prominent but improved. Cardiomegaly remains. No pneumothorax or enlarging pleural effusion. No measurable pleural effusion on portable imaging cur rently. IMPRESSION: No measurable pleural effusion at this time. On portable imaging, small posterior gutter E fusions can be occult. Overall significant improvement in the CHF/volume overload pattern. Cardiomegaly is still present.
[2018-04-06] MEDS: [UNRECOGNIZED DRUG - OTHER] IH SCH ×2 (09:00→21:00)
[2018-04-06] MEDS: BUDESONIDE IH SCH ×2 (09:00→21:00)
[2018-04-06] MEDS: INSULIN GLARGINE 100 UNITS/ML SQ SCH (09:00)
[2018-04-06] MEDS: FORMOTEROL FUMARATE IH SCH ×2 (09:00→21:00)
[2018-04-06] MEDS: MAGNESIUM HYDROXIDE 8% 30 ML PO SCH (09:09)
[2018-04-06] MEDS: POLYETHYL GLY 3350 17 GM/DOSE PO SCH (09:09)
[2018-04-06] MEDS: CALCIUM CARBONATE CHEW 500MG TAB PO SCH ×3 (09:09→17:13)
[2018-04-06] MEDS: NITROGLYCERIN 0.2 MG/HR (5 MG) PATCH TD SCH (09:10)
[2018-04-06] MEDS: CYANOCOBALAMIN 1000MCG/ML INJ SQ SCH (09:10)
[2018-04-06] MEDS: LACTULOSE 20 GM/30 ML UCUP PO SCH (09:10)
[2018-04-06] MEDS: PANTOPRAZOLE 40 MG INJ IVP SCH (09:10)
[2018-04-06] MEDS: SACUBITRIL/VALSARTAN 24/26 MG TAB PO SCH ×2 (09:11→21:44)
[2018-04-06] MEDS: FOLIC ACID 1 MG TABLET PO SCH (09:11)
[2018-04-06] MEDS: NEBIVOLOL HCL 5 MG TAB PO SCH (09:11)
[2018-04-06] MEDS: HYDRALAZINE HCL 25 MG TABLET PO SCH ×3 (09:11→21:46)
[2018-04-06] MEDS: ACETAMINOPHEN 325 MG TABLET PO PRN (09:11)
[2018-04-06] MEDS: SODIUM CHLORIDE 0.9% 10ML INJ IV PRN (09:12)
[2018-04-06] MEDS ORDERED: DEXAMETHASONE 4 MG/ML VIAL IV ONE (10:28)
--- NOTE | 2018-04-06 10:33 | P.PN ---
Subjective Date of Service: 04/06/18 Chief Complaint: SHE IS BETTER BUT L FOOT PAIN IS SEVERE. Subjective: Improving DEAN IS FEELING LOT BETTER. SHE NOW UNDERSTANDS THAT OBESITY WITH POOR FOOD CONTROL DIABETES, HTN AND RENAL FAILURE GO TOGETHER AND NOW IS AFFECTING HER HEART. SHE IS LOT BETTER. SHE EATS OUTSIDE FOOD AND KNOWS THAT SHE GETS MORE SALT AND FAT/CARBS THAN SHE NEEDS. FOOT PAIN L SIDE. MODERATE. EDEMA IS NOT BETTER YET. FOR LAST TWO DAYS PAIN IN L FOOT IS SEVERE. SHE WAS GIVEN ONE DOSE OF COLCHICINE WITH NO HELP. WITH POOR RENAL FUNCTION SHE CAN'T TAKE MORE. Review of Systems 10-point ROS is otherwise unremarkable General: Weakness, Malaise Musculoskeletal: Foot Pain Physical Examination - Vital Signs Temperature: 98.0 F Blood Pressure: 172/77 Pulse: 64 Respirations: 16 Pulse Ox (%): 98 - Physical Exam General: Alert, Moderate distress (FOOT PAIN), Obese HEENT: Atraumatic, PERRLA, EOMI Neck: Supple, JVD not distended Respiratory: Diminished Cardiovascular: Regular rate/rhythm, Normal S1 S2 Gastrointestinal: Normal bowel sounds, No tenderness Musculoskeletal: No tenderness Integumentary: No rashes Neurological: Normal speech, Normal tone, Normal affect Lymphatics: No axilla or inguinal lymphadenopathy - Studies Laboratory Data (last 24 hrs) 04/06/18 05:37: Sodium 142, Potassium 4.0, BUN 80 H, Creatinine 2.90 H, Glucose 144 H, Phosphorus 4.5 04/05/18 05:55: Uric Acid 9.1 H Medications List Reviewed: Yes Assessment And Plan - Current Problems (Diagnosis) (1) Chronic kidney disease (CKD) stage G4/A1, severely decreased glomerular filtration rate (GFR) between 15-29 mL/min/1.73 square meter and albuminuria creatinine ratio less than 30 mg/g Current Visit: No Status: Chronic Plan: STABLE BUT WILL END UP ON DIALYSIS EVEN WITH LASIX 80 MGPO BID SHE IS NOT ABLE TO STAY OUT OF CHF. THIS IS FROM DM AND POOR DIET FOR LIFE TIME. (2) Congestive cardiomyopathy Current Visit: No Status: Chronic Plan: SHE IS STILL NOT EATING WELL. SHE CLAIMED THAT SHE IS WATCHING HER DIET BUT WHEN ASKED SHE SAYS SHE EATS IN [employer] DAILY. SHE PROMISES TO COOK AND EAT WELL WITH LOW SALT ORDERS ARE GIVEN TO LOSE WEIGHT MANY TIMES IN THE PAST. WITH LOSS OF WEIGHT SHE WILL LIVE LONGER. CONGESTIVE CARDIOMYOPATHY MEANS- SYSTOLIC HEART FAILURE- THIS PATIENT HAS ACUTE ON CHRONIC AT THIS POINT. FOR HIM DEPT. SHE WILL EAT BETTER, SHE SAYS NOW. LASIX DRIP BY DR TIM STABLE BUT EDEMA MODERATE. ADD ENTRESTTO STOP AVAPRO- DONE. CXR HAS IMPROVED. SHE IS STILL COMPLAINING. (3) Hypertension Current Visit: No Status: Chronic (4) Left foot pain Current Visit: Yes Status: Acute Plan: POSSIBLE GOUT COLCHICINE PRN. URIC ACID LEVEL. X RAY. NO INJURY NO OPEN AREAS. URIC ACID IS HIGH . I HAVE ASKED SKIP HOIST ENGINEER TO HELP REDUCE GOUT PAIN AND URIC ACID. SHE CAN'T GET MEDS LIKE COLCHICINE SHE HAS CRF.
[2018-04-06] MEDS ORDERED: AMLODIPINE 5 MG TAB PO SCH (11:27)
[2018-04-06] MEDS: ALLOPURINOL 100 MG TAB PO SCH (11:50)
--- NOTE | 2018-04-06 12:11 | P.PN ---
Subjective Date of Service: 04/06/18 Chief Complaint: SHE IS BETTER BUT L FOOT PAIN IS SEVERE. pt with CKD and chronic LE edema, presented for worsening edema, had SHERLY Today Still complaining of pain can start on allopuriol 100mg po daily and Prednisone 10mg po daily for 2wks CXR: still showed congestion lasix to 80mf IVP vid Will add diamox for elevated bicarb will increase hydralazine low iron stores: IV iron will need Gi W/U once stable, can be done as an OP Physical Examination - Vital Signs Temperature: 98.0 F Blood Pressure: 143/65 Pulse: 60 Respirations: 16 Pulse Ox (%): 98 - Physical Exam General: Oriented x3 HEENT: Atraumatic Neck: Without JVD or thyroid abnormality Respiratory: Clear to auscultation bilaterally Cardiovascular: No edema, Regular rate/rhythm, Normal S1 S2 Gastrointestinal: Normal bowel sounds, Non-distended Musculoskeletal: Swelling - Studies Laboratory Data (last 24 hrs) 04/06/18 05:37: Sodium 142, Potassium 4.0, BUN 80 H, Creatinine 2.90 H, Glucose 144 H, Phosphorus 4.5 Medications List Reviewed: Yes Assessment And Plan - Current Problems (Diagnosis) (1) CHF (congestive heart failure) Onset Date: 03/20/18 Current Visit: No Status: Acute (2) Edema Onset Date: 03/20/18 Current Visit: No Status: Acute (3) Hx of ovarian cancer Current Visit: No Status: Acute (4) Morbid obesity with BMI of 40.0-44.9, adult Current Visit: No Status: Acute (5) CKD (chronic kidney disease) Current Visit: No Status: Chronic Qualifiers: Chronic kidney disease stage: stage 4 (severe) Qualified Code(s): N18.4 - Chronic kidney disease, stage 4 (severe) - Plan Acute kidney injury on CKD CKD likely due to HTN nephrosclerosis Sherly likely 2/2 cardiorenal syndrome baseline Cr ~2.0 this admission 2.4>2.7>3.1 IV lasix >2.7 UA : no RBC 24 hr urine for prot 2.5gm previous w/u with KARLIE, ANCA, Anti DS, c3,c4 hep panel an HIV -ve no need for METAL CRAFTS TEACHER at this time F/U SPEP, IEF and k/L Hypertension, elevated , will increase hydralazine Anemia of chronic kidney disease with iron-deficiency anemia, was started on iron. b12 def will supply KEITH: IV iron will folate Secondary hyperparathyroidism. corrected CA ok Congestive heart failure, diastolic dysfunction. We will try to establish better volume control. We will follow up with Cardiology. TTE; EF 60%
[2018-04-06] MEDS ORDERED: FUROSEMIDE IV SCH ×2 (13:00)
[2018-04-06] MEDS ORDERED: NA CHLORIDE 0.9% IV SCH ×2 (13:00)
[2018-04-06] MEDS: ENOXAPARIN 30 MG/0.3 ML SQ SCH (17:12)
[2018-04-06] MEDS: FUROSEMIDE 40 MG/4 ML VIAL IV SCH (17:12)
[2018-04-06] MEDS: SOD FERRIC GLUC COMPLX/SUCROSE 125 MG in NA CHLORIDE 0.9% 100 ML IV SCH (17:41)
[2018-04-06] MEDS ORDERED: HYDRALAZINE HCL 25 MG TABLET PO SCH (21:00)
[2018-04-06] MEDS: PARoxetine HCl 10 MG TAB PO SCH (21:45)
[2018-04-06] MEDS: acetaZOLAMIDE 250 MG TAB PO SCH (21:46)
[2018-04-06] MEDS: DIPHENHYDRAMINE 25 MG TAB/CAP PO PRN (21:46)
[2018-04-07] MEDS: INSULIN -REGULAR HUMAN 50 UNIT/0.5 ML ML SQ SCH ×4 (07:30→21:04)
[2018-04-07] MEDS: INSULIN GLARGINE 100 UNITS/ML SQ SCH (08:49)
[2018-04-07] MEDS: LACTULOSE 20 GM/30 ML UCUP PO SCH (08:50)
[2018-04-07] MEDS: CALCIUM CARBONATE CHEW 500MG TAB PO SCH ×3 (08:50→17:25)
[2018-04-07] MEDS: MAGNESIUM HYDROXIDE 8% 30 ML PO SCH (08:50)
[2018-04-07] MEDS: acetaZOLAMIDE 250 MG TAB PO SCH ×2 (08:51→21:04)
[2018-04-07] MEDS: FOLIC ACID 1 MG TABLET PO SCH (08:51)
[2018-04-07] MEDS: SACUBITRIL/VALSARTAN 24/26 MG TAB PO SCH (08:51)
[2018-04-07] MEDS: HYDRALAZINE HCL 25 MG TABLET PO SCH ×3 (08:51→21:00)
[2018-04-07] MEDS: POLYETHYL GLY 3350 17 GM/DOSE PO SCH (08:51)
[2018-04-07] MEDS: PANTOPRAZOLE 40 MG INJ IVP SCH (08:51)
[2018-04-07] MEDS: predniSONE 10 MG TAB PO SCH (08:52)
[2018-04-07] MEDS: ALLOPURINOL 100 MG TAB PO SCH (08:52)
[2018-04-07] MEDS: NEBIVOLOL HCL 5 MG TAB PO SCH (08:53)
[2018-04-07] MEDS: FUROSEMIDE 40 MG/4 ML VIAL IV SCH ×2 (08:53→17:25)
[2018-04-07] MEDS: CYANOCOBALAMIN 1000MCG/ML INJ SQ SCH (08:53)
[2018-04-07] MEDS: NITROGLYCERIN 0.2 MG/HR (5 MG) PATCH TD SCH (08:53)
[2018-04-07] MEDS: FORMOTEROL FUMARATE IH SCH ×2 (09:00→21:00)
[2018-04-07] MEDS: BUDESONIDE IH SCH ×2 (09:00→21:00)
[2018-04-07] MEDS: [UNRECOGNIZED DRUG - OTHER] IH SCH ×2 (09:00→21:00)
[2018-04-07] MEDS: METHYL SALICYLATE/MENTHOL 3 OZ TUBE TOP PRN ×2 (09:14→21:06)
[2018-04-07] MEDS: SODIUM CHLORIDE 0.9% 10ML INJ IV PRN (09:14)
[2018-04-07] MEDS: ENOXAPARIN 30 MG/0.3 ML SQ SCH (17:25)
[2018-04-07] MEDS: SOD FERRIC GLUC COMPLX/SUCROSE 125 MG in NA CHLORIDE 0.9% 100 ML IV SCH (17:25)
--- NOTE | 2018-04-07 18:14 | P.PN ---
Subjective Date of Service: 04/07/18 Chief Complaint: SHE IS BETTER BUT L FOOT PAIN IS SEVERE. Subjective: Improving DEAN IS FEELING LOT BETTER. SHE NOW UNDERSTANDS THAT OBESITY WITH POOR FOOD CONTROL DIABETES, HTN AND RENAL FAILURE GO TOGETHER AND NOW IS AFFECTING HER HEART. SHE IS LOT BETTER. SHE EATS OUTSIDE FOOD AND KNOWS THAT SHE GETS MORE SALT AND FAT/CARBS THAN SHE NEEDS. FOOT PAIN L SIDE. MODERATE. EDEMA IS NOT BETTER YET. FOR LAST TWO DAYS PAIN IN L FOOT IS SEVERE. SHE WAS GIVEN ONE DOSE OF COLCHICINE WITH NO HELP. WITH POOR RENAL FUNCTION SHE CAN'T TAKE MORE. PAIN IS SOME BETTER WITH STEROIDS Review of Systems 10-point ROS is otherwise unremarkable General: Weakness, Malaise Physical Examination - Vital Signs Temperature: 97.4 F Blood Pressure: 122/57 Pulse: 68 Respirations: 20 Pulse Ox (%): 97 - Physical Exam General: Alert, Mild distress, Moderate distress, Obese HEENT: Atraumatic, PERRLA, EOMI Neck: Supple, JVD not distended Respiratory: Clear to auscultation bilaterally, Normal air movement Cardiovascular: Regular rate/rhythm, Normal S1 S2 Gastrointestinal: Normal bowel sounds, No tenderness Musculoskeletal: Other (L FOOT) Integumentary: No rashes Neurological: Normal speech, Normal tone, Normal affect Lymphatics: No axilla or inguinal lymphadenopathy - Studies Medications List Reviewed: Yes Assessment And Plan - Current Problems (Diagnosis) (1) Chronic kidney disease (CKD) stage G4/A1, severely decreased glomerular filtration rate (GFR) between 15-29 mL/min/1.73 square meter and albuminuria creatinine ratio less than 30 mg/g Current Visit: No Status: Chronic Plan: STABLE BUT WILL END UP ON DIALYSIS EVEN WITH LASIX 80 MGPO BID SHE IS NOT ABLE TO STAY OUT OF CHF. THIS IS FROM DM AND POOR DIET FOR LIFE TIME. (2) Congestive cardiomyopathy Current Visit: No Status: Chronic Plan: SHE IS STILL NOT EATING WELL. SHE CLAIMED THAT SHE IS WATCHING HER DIET BUT WHEN ASKED SHE SAYS SHE EATS IN [employer] DAILY. SHE PROMISES TO COOK AND EAT WELL WITH LOW SALT ORDERS ARE GIVEN TO LOSE WEIGHT MANY TIMES IN THE PAST. WITH LOSS OF WEIGHT SHE WILL LIVE LONGER. CONGESTIVE CARDIOMYOPATHY MEANS- SYSTOLIC HEART FAILURE- THIS PATIENT HAS ACUTE ON CHRONIC AT THIS POINT. FOR HIM DEPT. SHE WILL EAT BETTER, SHE SAYS NOW. LASIX DRIP BY DR TIM STABLE BUT EDEMA MODERATE. ADD ENTRESTTO STOP AVAPRO- DONE. CXR HAS IMPROVED. SHE IS STILL COMPLAINING. (3) Hypertension Current Visit: No Status: Chronic Plan: HYDRLAZINE IS HIGHER ENTRESTO STOPPED FOR NOW UNTIL CLEARED BY NEPHROLOGISTS. (4) Left foot pain Current Visit: Yes Status: Acute Plan: POSSIBLE GOUT COLCHICINE PRN. URIC ACID LEVEL. X RAY. NO INJURY NO OPEN AREAS. URIC ACID IS HIGH . I HAVE ASKED LATIN DANCER TO HELP REDUCE GOUT PAIN AND URIC ACID. SHE CAN'T GET MEDS LIKE COLCHICINE SHE HAS CRF. WILL HAVE TO WAIT FOR ALLOPURNIOL UNTIL CLERAED FOR GOUT PAIN
[2018-04-07] MEDS: PARoxetine HCl 10 MG TAB PO SCH (21:04)
[2018-04-08] MEDS: INSULIN -REGULAR HUMAN 50 UNIT/0.5 ML ML SQ SCH ×4 (07:30→20:44)
[2018-04-08] MEDS: CALCIUM CARBONATE CHEW 500MG TAB PO SCH ×3 (07:30→17:32)
[2018-04-08 08:28] LABS: Potassium 4.2 mmol/L (3.5-5.1)
[2018-04-08 08:45] LABS: Absolute Lymphocytes (CBC) 0.4 K/uL (0.7-4.9); Absolute Monocytes 0.7 K/uL (0.1-1.3); Absolute Neutrophil 8.4 K/uL (1.8-8.0); Basophils % 0.4 % (0-1.3); Eosinophils % 1.3 % (0-4.4); Hematocrit 31.4 % (36.0-45.0); Lymphocytes % 3.8 % (15.3-44.8); MCH 28.7 pg (27.0-35.0); MPV 10.3 fL (7.6-11.3); Monocytes % 7.4 % (3.3-12.3); RBC Red Blood Cell Count 3.57 M/uL (3.86-4.86)
[2018-04-08] MEDS: PANTOPRAZOLE 40 MG INJ IVP SCH (08:54)
[2018-04-08] MEDS: FUROSEMIDE 40 MG/4 ML VIAL IV SCH ×2 (08:54→17:18)
[2018-04-08] MEDS: CYANOCOBALAMIN 1000MCG/ML INJ SQ SCH (08:54)
[2018-04-08] MEDS: NITROGLYCERIN 0.2 MG/HR (5 MG) PATCH TD SCH (08:55)
[2018-04-08] MEDS: SODIUM CHLORIDE 0.9% 10ML INJ IV PRN (08:56)
[2018-04-08] MEDS: [UNRECOGNIZED DRUG - OTHER] IH SCH ×2 (09:00→20:44)
[2018-04-08] MEDS: POLYETHYL GLY 3350 17 GM/DOSE PO SCH (09:00)
[2018-04-08] MEDS: BUDESONIDE IH SCH ×2 (09:00→20:44)
[2018-04-08] MEDS: LACTULOSE 20 GM/30 ML UCUP PO SCH (09:00)
[2018-04-08] MEDS: HYDRALAZINE HCL 25 MG TABLET PO SCH ×3 (09:00→20:44)
[2018-04-08] MEDS: FORMOTEROL FUMARATE IH SCH ×2 (09:00→20:44)
[2018-04-08] MEDS: MAGNESIUM HYDROXIDE 8% 30 ML PO SCH (09:00)
[2018-04-08] MEDS: INSULIN GLARGINE 100 UNITS/ML SQ SCH (09:01)
[2018-04-08] MEDS: METHYL SALICYLATE/MENTHOL 3 OZ TUBE TOP PRN (09:13)
[2018-04-08] MEDS: ONDANSETRON 4 MG/2 ML VIAL IV PRN (09:13)
[2018-04-08 10:10] LABS: Blood Morphology Comment NOTED (NOT SEEN); Platelet Estimate ADEQ; Urine White Blood Cell Casts OK
[2018-04-08 10:11] LABS: Hypochromasia 1+; Stomatocytes 1+
[2018-04-08] MEDS ORDERED: NA CHLORIDE 0.9% 250 ML IV ONE (10:22)
--- NOTE | 2018-04-08 11:06 | RAD REPORT ---
EXAM DESCRIPTION: CT - Abdomen Pelvis Wo Contrast - 04/08/2018 10:55 am CLINICAL HISTORY: Abdominal pain. R/O YA COMPARISON: Abdomen Pelvis Wo Contrast dated 12/27/2015 TECHNIQUE: CT imaging of the abdomen and pelvis was performed without contrast. Solid organ and vasc ular assessment is limited due to lack of IV contrast. All CT scans are performed using dose optimization technique as appropriate and may include automated exposure control or mA/KV adjustment according to patient size. FINDINGS: The lower lung mendes are clear.Postsurgical clips are present about the stomach. Several small gallstones are present in the gallbladder. Noncontrast imaging of the liver, spleen, pa ncreas, right adrenal gland and left kidney.3.2 cm left adrenal mass is present likely an adenoma. Pu nctate stones are present inferior right kidney. No bowel obstruction, free air, free fluid or abscess. Abdominal wall laxity is seen anteriorly witho ut a true hernia. The appendix is normal. Prominent lumbosacral degenerative changes. IMPRESSION: No bowel obstruction or other acute process identified. 3.2 cm left adrenal masses, compatible with adenoma. Punctate right nephrolithiasis without hydronephrosis. A limited non-contrast examination was performed as detailed.
--- NOTE | 2018-04-08 11:20 | RAD REPORT ---
EXAM DESCRIPTION: RAD - Chest Single View - 04/08/2018 11:12 am CLINICAL HISTORY: SOB Chest pain. COMPARISON: Chest Single View dated 04/06/2018; Chest Single View dated 03/31/2018; Chest Single View dated 03/21/2018; Chest Pa And Lat (2 Views) dated 03/19/2018 FINDINGS: Portable technique limits examination quality. The lungs are grossly clear. The heart is moderately prominent size. No displaced fractures. IMPRESSION: Mild to moderate cardiomegaly.
[2018-04-08] MEDS: acetaZOLAMIDE 250 MG TAB PO SCH ×2 (11:43→20:43)
[2018-04-08] MEDS: FOLIC ACID 1 MG TABLET PO SCH (11:43)
[2018-04-08] MEDS: predniSONE 10 MG TAB PO SCH (11:43)
[2018-04-08] MEDS: ALLOPURINOL 100 MG TAB PO SCH (11:44)
[2018-04-08] MEDS: NEBIVOLOL HCL 5 MG TAB PO SCH (11:44)
--- NOTE | 2018-04-08 12:16 | P.PN ---
Subjective Date of Service: 04/08/18 Chief Complaint: NEW PROBLEM SINCE 3 AM. NAUSEA AND VOMITING Subjective: New changes DEAN IS FEELING LOT BETTER. SHE NOW UNDERSTANDS THAT OBESITY WITH POOR FOOD CONTROL DIABETES, HTN AND RENAL FAILURE GO TOGETHER AND NOW IS AFFECTING HER HEART. SHE IS LOT BETTER. SHE EATS OUTSIDE FOOD AND KNOWS THAT SHE GETS MORE SALT AND FAT/CARBS THAN SHE NEEDS. FOOT PAIN L SIDE. MODERATE. EDEMA IS NOT BETTER YET. FOR LAST TWO DAYS PAIN IN L FOOT IS SEVERE. SHE WAS GIVEN ONE DOSE OF COLCHICINE WITH NO HELP. WITH POOR RENAL FUNCTION SHE CAN'T TAKE MORE. PAIN IS SOME BETTER WITH STEROIDS SHE HAS LESS PAIN IN L FOOT BUT HAS NAUSEA AND VOMITING THIS AM. I CALLED DR SIMON. Review of Systems 10-point ROS is otherwise unremarkable General: Weakness, Malaise Gastrointestinal: Nausea, Vomiting Physical Examination - Vital Signs Temperature: 97.3 F Blood Pressure: 105/41 Pulse: 61 Respirations: 18 Pulse Ox (%): 97 - Physical Exam General: Alert, Mild distress, Moderate distress, Obese HEENT: Atraumatic, PERRLA, EOMI Neck: Supple, JVD not distended Respiratory: Clear to auscultation bilaterally, Normal air movement Cardiovascular: Regular rate/rhythm, Normal S1 S2 Gastrointestinal: Normal bowel sounds, No tenderness, Other (LARGE ABDOMEN WALL HERNIA ,UNCHANGED, NOT TENDER.) Musculoskeletal: No tenderness Integumentary: No rashes Neurological: Normal speech, Normal tone, Normal affect Lymphatics: No axilla or inguinal lymphadenopathy - Studies Laboratory Data (last 24 hrs) 04/08/18 08:15: WBC 9.7 D, Hgb 10.3 L, Hct 31.4 L, Plt Count 245 04/08/18 08:05: Sodium Cancelled, Potassium Cancelled, BUN Cancelled, Creatinine Cancelled, Glucose Cancelled 04/08/18 07:59: Sodium 138, Potassium 4.2, BUN 101 H D, Creatinine 4.20 H D, Glucose 171 H Medications List Reviewed: Yes Assessment And Plan - Current Problems (Diagnosis) (1) Chronic kidney disease (CKD) stage G4/A1, severely decreased glomerular filtration rate (GFR) between 15-29 mL/min/1.73 square meter and albuminuria creatinine ratio less than 30 mg/g Current Visit: No Status: Chronic Plan: STABLE BUT WILL END UP ON DIALYSIS EVEN WITH LASIX 80 MGPO BID SHE IS NOT ABLE TO STAY OUT OF CHF. THIS IS FROM DM AND POOR DIET FOR LIFE TIME. TALKED TO DR Madonna SIMON. IF CREATIINE IS WORSE IN AM HE WILL START HD. IT IS 4 TODAY. PATIENT IS AGREEABLE. (2) Congestive cardiomyopathy Current Visit: No Status: Chronic Plan: SHE IS STILL NOT EATING WELL. SHE CLAIMED THAT SHE IS WATCHING HER DIET BUT WHEN ASKED SHE SAYS SHE EATS IN [employer] DAILY. SHE PROMISES TO COOK AND EAT WELL WITH LOW SALT ORDERS ARE GIVEN TO LOSE WEIGHT MANY TIMES IN THE PAST. WITH LOSS OF WEIGHT SHE WILL LIVE LONGER. CONGESTIVE CARDIOMYOPATHY MEANS- SYSTOLIC HEART FAILURE- THIS PATIENT HAS ACUTE ON CHRONIC AT THIS POINT. FOR HIM DEPT. SHE WILL EAT BETTER, SHE SAYS NOW. LASIX DRIP BY DR SIMONF STABLE BUT EDEMA MODERATE. ADD ENTRESTTO STOP AVAPRO- DONE. CXR HAS IMPROVED. SHE IS STILL COMPLAINING. STOPPED ENTRESTO UNTIL STABLE OR ON HD PER DR SIMON. (3) Hypertension Current Visit: No Status: Chronic Plan: HYDRLAZINE IS HIGHER ENTRESTO STOPPED FOR NOW UNTIL CLEARED BY NEPHROLOGISTS. (4) Left foot pain Current Visit: Yes Status: Acute Plan: POSSIBLE GOUT COLCHICINE PRN. URIC ACID LEVEL. X RAY. NO INJURY NO OPEN AREAS. URIC ACID IS HIGH . I HAVE ASKED BUILDING INSPECTION ENGINEER TO HELP REDUCE GOUT PAIN AND URIC ACID. SHE CAN'T GET MEDS LIKE COLCHICINE SHE HAS CRF. WILL HAVE TO WAIT FOR ALLOPURNIOL UNTIL CLERAED FOR GOUT PAIN STOPPED ALLOPURINOL NEW NV STARTED. (5) Nausea & vomiting Current Visit: Yes Status: Acute Plan: CT NEGATIVE FOR OBSTRUCTION. IV BOLUS GIVEN. ALREADY ON IV PROTONIX IT CAN VIRAL OR SE OF ALLOPURINOL. STOP IT FOR NOW. HD PENDING.
[2018-04-08 15:53] LABS: Urine Appearance TURBID; Urine Blood 3+ (NEG); Urine Color DK YELLOW; Urine Glucose TRACE (NEG); Urine Protein 3+ (NEG); Urine Specific Gravity 1.015 (1.005-1.030)
[2018-04-08 15:56] LABS: Urine Bilirubin NEG (NEG)
[2018-04-08 16:11] LABS: Urine Bacteria 20-50 /HPF (<20); Urine Culture Reflex Order REFLEXED; Urine RBC >50 /HPF (NONE SEEN)
[2018-04-08] MEDS: ENOXAPARIN 30 MG/0.3 ML SQ SCH (17:17)
[2018-04-08] MEDS: SOD FERRIC GLUC COMPLX/SUCROSE 125 MG in NA CHLORIDE 0.9% 100 ML IV SCH (17:17)
--- NOTE | 2018-04-08 17:41 | PN ---
Date of Progress Note: 04/08/2018 Subjective: The patient was admitted with acute kidney injury secondary to cardiorenal, being diures ed on Lasix drip, responding very well. Saturday was switched to Lasix bolus. Since then, her urine o utput has been declined. Currently over the last 12 hours she had urine output of 400. The patient is still complaining for shortness of breath. Her edema has been subsided. The patient lost almost 19 pounds since admission. Physical Examination: Vital Signs: Blood pressure 105/41, pulse of 61, afebrile. The patient had urine output the last 12 hour of 400. Chest: Crackles on the base. Heart: S1 and S2 regular, systolic murmur. Abdomen: Soft, nontender. Extremities: Plus edema. Laboratory Data: WBC 9.7, H and H 10.3/31.4, platelets of 245. Sodium 138, potassium 4.2, bicarb 30 , BUN 101, creatinine 4.2, calcium 8.5. Current Medications: The patient on its include: 1.Solu-Medrol. 2.Diphenhydramine. 3.IV iron. 4.Lovenox. 5.Hydralazine 100 t.i.d. 6.Bystolic. 7.Nitroglycerin. 8.Paxil. 9.Lasix 80 b.i.d. 10.Lactulose. 11.Folic acid. 12.Loperamide. 13.Prednisone. Assessment And Plan: 1.Acute kidney injury on advanced chronic kidney disease secondary to cardiorenal, started to be a l ittle bit on the oliguric side, possible over-diuresis. I am going to go ahead and give the patient a bolus of 250 and we will monitor the patient. I will change the Lasix to slow infusion over 20 min veronica and we will follow up. I had long discussion with the patient regarding the possibility of kidne y function did not improve that she will need dialysis, patient on agreement. We will follow up. 2.Hypertension, controlled, optimal. Currently on the lower side. I am going to change her hydrala zine to be 50 mg and we will follow up. 3.Congestive heart failure, advanced. We will try to establish better volume control. The patient may need to initiated on dialysis for that. CONRAD/DIVYA Voice ID: [id number] Report ID: [id number]
[2018-04-08] MEDS: PARoxetine HCl 10 MG TAB PO SCH (20:44)
--- NOTE | 2018-04-08 23:01 | PN ---
Date of Progress Note: 04/07/2018 Chief Complaint: Fluid overload, anasarca. History Of Present Illness: The patient has been treated with diuretic. The patient has congestive heart failure, acute on chronic. She developed severe shortness of breath. She has diastolic dysfun ction and ejection fraction was 60%. The patient has diabetes mellitus and she is noncompliant with low-sodium diet. Review of Systems: The patient is feeling better. Physical Examination: Lungs: Diminished breath sounds at the bases. Crackles bilaterally present. Heart: S1, S2. Abdomen: Soft, benign. Extremities: Edema present in both legs. Impression And Plan: 1.Acute kidney injury on chronic kidney disease. The patient has cardiorenal syndrome. The patient has chronic kidney disease due to hypertension and nephrosclerosis. 2.Acute kidney injury secondary to cardiorenal syndrome. Continue diuretics. 3.Proteinuria. The patient underwent workup and serology test was done to check KARLIE, ANCA, and HIV. Monitor for any evidence of monoclonal gammopathy of unknown significance. The patient will follow up with Nephrology outpatient . FLOWER/DIVYA Voice ID: [id number] Report ID: [id number]
[2018-04-09 04:24] LABS: Albumin 2.6 g/dL (3.4-5.0); Potassium 4.3 mmol/L (3.5-5.1)
[2018-04-09] MEDS: INSULIN -REGULAR HUMAN 50 UNIT/0.5 ML ML SQ SCH ×4 (07:30→20:43)
[2018-04-09] MEDS: CALCIUM CARBONATE CHEW 500MG TAB PO SCH ×3 (07:30→16:30)
[2018-04-09] MEDS: PANTOPRAZOLE 40 MG INJ IVP SCH (08:38)
[2018-04-09] MEDS: FUROSEMIDE 40 MG/4 ML VIAL IV SCH ×2 (08:38→19:26)
[2018-04-09] MEDS: NITROGLYCERIN 0.2 MG/HR (5 MG) PATCH TD SCH (08:39)
[2018-04-09] MEDS: SODIUM CHLORIDE 0.9% 10ML INJ IV PRN (08:40)
[2018-04-09] MEDS: METHYL SALICYLATE/MENTHOL 3 OZ TUBE TOP PRN (08:45)
[2018-04-09] MEDS: [UNRECOGNIZED DRUG - OTHER] IH SCH ×2 (09:00→21:00)
[2018-04-09] MEDS: acetaZOLAMIDE 250 MG TAB PO SCH ×2 (09:00→20:42)
[2018-04-09] MEDS: HYDRALAZINE HCL 25 MG TABLET PO SCH ×4 (09:00→21:00)
[2018-04-09] MEDS: FOLIC ACID 1 MG TABLET PO SCH (09:00)
[2018-04-09] MEDS: NEBIVOLOL HCL 5 MG TAB PO SCH (09:00)
[2018-04-09] MEDS: INSULIN GLARGINE 100 UNITS/ML SQ SCH (09:00)
[2018-04-09] MEDS: POLYETHYL GLY 3350 17 GM/DOSE PO SCH (09:00)
[2018-04-09] MEDS: LACTULOSE 20 GM/30 ML UCUP PO SCH (09:00)
[2018-04-09] MEDS: FORMOTEROL FUMARATE IH SCH ×2 (09:00→21:00)
[2018-04-09] MEDS: MAGNESIUM HYDROXIDE 8% 30 ML PO SCH (09:00)
[2018-04-09] MEDS: predniSONE 10 MG TAB PO SCH (09:00)
[2018-04-09] MEDS: BUDESONIDE IH SCH ×2 (09:00→21:00)
[2018-04-09] MEDS ORDERED: NA CHLORIDE 0.9% 1,000 ML ONE (09:59)
[2018-04-09 10:07] LABS: Protime INR 1.08
[2018-04-09] MEDS ORDERED: BUPIVACA 0.25%/EPI 0.0005% MDV 50 ML VIAL ONE (10:10)
[2018-04-09] MEDS ORDERED: HEPARIN 5000 UNIT/ML 1 ML VIAL ONE (10:10)
[2018-04-09] MEDS ORDERED: NS 0.9% VIAL 20 ML ONE (10:10)
[2018-04-09] MEDS ORDERED: FENTANYL CITR 100 MCG/2 ML ONE (10:26)
[2018-04-09] MEDS ORDERED: MIDAZOLAM HCL 2 MG/2 ML INJ ONE (10:26)
[2018-04-09] MEDS ORDERED: LIDOCAINE 1% MPF 5 ML VIAL ONE (10:26)
[2018-04-09] MEDS ORDERED: PROPOFOL 200 MG/20 ML VIAL IV ONE (10:26)
[2018-04-09] MEDS ORDERED: NS 0.9% VIAL 10 ML ONE (11:27)
--- NOTE | 2018-04-09 11:27 | P.OP ---
Preoperative diagnosis: End Stage Renal Disease Postoperative diagnosis: End Stage Renal Disease Primary procedure: Placement of Right Internal Jugular Tunnelled Hemodialysis Catheter Secondary procedure: Ultrasound guidance, flouroscopy guidance used Other procedure(s): micro-introducer set used Anesthesia: MAC + Local Estimated blood loss: <10cc Specimen: None Findings: Dark, Non-pulsatile blood returned Complications: None Implants: 24cm tunnelled hemodialysis catheter Transferred to: Recovery Room Condition: Good
--- NOTE | 2018-04-09 11:38 | RAD REPORT ---
EXAM DESCRIPTION: RAD - Fluoroscopy <1 Hour - 04/09/2018 11:33 am CLINICAL HISTORY: Venous catheter insertion. RIGHT HEMODIALYSIS CATH COMPARISON: Vent Perfusion VQ Scan dated 04/01/2018 FINDINGS: Fluoroscopic imaging is submitted from placement of a venous catheter. Details of the pro cedure not available. Fluoroscopy time: 0.2 minutes.
--- NOTE | 2018-04-09 12:03 | RAD REPORT ---
EXAM DESCRIPTION: RAD - Chest Single View - 04/09/2018 11:54 am CLINICAL HISTORY: Device placement central venous line placement COMPARISON: April 08, 2018 FINDINGS: Central venous line has been inserted with its tip in the the right atrium. A pneumothorax is not seen. The lungs appear clear of acute infiltrate. The heart is mildly to moderately enlarged IMPRESSION: Central venous line with its tip in the right atrium
--- NOTE | 2018-04-09 13:00 | CON ---
Date of Consultation: 04/09/2018 Brief History Of Present Illness: The patient is a 72-year-old female, who presents with a history of acute kidney injury, nonoliguric, moderately severe, associated with few fluid overload, k idney disease. She has acute on chronic kidney injury with a rising creatinine, BUN, phos levels wer e all increasing. She has multiple medical problems including congestive heart failure, COPD, diabet es, dyslipidemia, CKD stage 5 with an ejection fraction of approximately 26%. She has systolic dysfu nction as well and global hypokinesis of her heart. She is now admitted with history of noncomplianc e and not adherent to a low-sodium diet with worsening renal function necessitating now placement of a tunneled hemodialysis catheter and initiation of hemodialysis. Past Medical History: CAD, CHF, severe systolic dysfunction, anemia, CKD, hypertension, diabetes, ac veronica kidney injury, chronic kidney disease stage 4/5, diabetic kidney disease, and ovarian cancer. Past Surgical History: Includes knee surgery, inguinal hernia repair, tonsillectomy, and toe amputat ion. Social History: She denies tobacco, alcohol, or recreational drug use. Home Medications: Include albuterol, Symbicort, Lasix, hydralazine, Lantus, Avapro, lactulose, milk of magnesia, Bystolic, nifedipine, Paxil, and MiraLAX. Physical Examination: Vital Signs: At the time of my examination, her BMI is 38.1, blood pressure 135/61, pulse 68, respir atory rate 17, temperature 97.8 on room air. She was saturating 98% on room air, when I saw her. General: She is awake, alert, and oriented. Psychiatric: She is appropriate and conversive . HEENT: She is normocephalic. Her sclerae are anicteric. Her mucous membranes are moist. Her oroph arynx is clear. Neck: Supple with no JVD. LUNGS: Diminished breath sounds at the bases and some mild crackles at the bases. HEART: Normal S1, S2. ABDOMEN: Soft, obese. EXTREMITIES: There is edema in all 4 extremities. Laboratory Data: She had a laboratory exam, which revealed a white blood cell count of 9.7, hemoglob in 10.3, hematocrit 31.4, platelet count is 245. Her sodium 138, potassium 4.3, chloride 99, carbon dioxide 30, BUN 114, creatinine 4.6, her GFR is es timated at 9 L, glucose 127, calcium is 7.7, phos is 6.0. Imaging Data: She had an imaging performed as well on her admission. Her last chest x-ray, however, revealed a [id number] cardiomegaly. She had a CT scan of the abdomen and pelvis on 04/08/2018, which was yesterday, which was officially read as no bowel obstruction or other acute process identified. A 3.2 cm left adrenal mass compatibl e with adenoma, punctate right nephrolithiasis without hydronephrosis. Assessment And Plan: This is a 72-year-old female, who comes in with signs and symptoms of acute-on chronic worsening kidney dysfunction, now necessitating initiation of dialysis. I have explained the risks, benefits, and alternatives of placement of a tunneled hemodialysis cathet er including but not limited to bleeding, infection, pneumothorax, damage to surrounding tissue, need for further operation and procedures, she agrees to proceed as indicated. MELISSA/DIVYA Voice ID: [id number] Report ID: [id number]
[2018-04-09] MEDS ORDERED: NA CHLORIDE 0.9% 1,000 ML IV PRN (15:15)
[2018-04-09] MEDS ORDERED: ALBUMIN HUMAN 25% 50 ML IV SCH (16:00)
[2018-04-09] MEDS: ENOXAPARIN 30 MG/0.3 ML SQ SCH (19:26)
[2018-04-09] MEDS: SOD FERRIC GLUC COMPLX/SUCROSE 125 MG in NA CHLORIDE 0.9% 100 ML IV SCH (19:27)
[2018-04-09] MEDS: PARoxetine HCl 10 MG TAB PO SCH (20:42)
--- NOTE | 2018-04-09 21:08 | P.PN ---
Subjective Date of Service: 04/09/18 Chief Complaint: WEAK, FATIGUED Subjective: Improving DEAN IS FEELING LOT BETTER. SHE NOW UNDERSTANDS THAT OBESITY WITH POOR FOOD CONTROL DIABETES, HTN AND RENAL FAILURE GO TOGETHER AND NOW IS AFFECTING HER HEART. SHE IS LOT BETTER. SHE EATS OUTSIDE FOOD AND KNOWS THAT SHE GETS MORE SALT AND FAT/CARBS THAN SHE NEEDS. FOOT PAIN L SIDE. MODERATE. EDEMA IS NOT BETTER YET. FOR LAST TWO DAYS PAIN IN L FOOT IS SEVERE. SHE WAS GIVEN ONE DOSE OF COLCHICINE WITH NO HELP. WITH POOR RENAL FUNCTION SHE CAN'T TAKE MORE. PAIN IS SOME BETTER WITH STEROIDS SHE HAS LESS PAIN IN L FOOT BUT HAS NAUSEA AND VOMITING THIS AM. I CALLED DR SIMON. NASUEA AND VOMITING IS GONE NOW. THIS WAS POSSIBLE FROM ALLOPURINOL IT WAS THE ONLY NEW MEDICINE. Review of Systems 10-point ROS is otherwise unremarkable General: Weakness, Malaise Physical Examination - Vital Signs Temperature: 98 F Blood Pressure: 129/69 Pulse: 78 Respirations: 19 Pulse Ox (%): 98 - Physical Exam General: Alert, Mild distress, Obese HEENT: Atraumatic, PERRLA, EOMI Neck: Supple, JVD not distended Respiratory: Clear to auscultation bilaterally, Normal air movement Cardiovascular: Regular rate/rhythm, Normal S1 S2, Edema Gastrointestinal: Normal bowel sounds, No tenderness Musculoskeletal: No tenderness Integumentary: No rashes Neurological: Normal speech, Normal tone, Normal affect Lymphatics: No axilla or inguinal lymphadenopathy - Studies Laboratory Data (last 24 hrs) 04/09/18 09:16: PT 12.8 H, INR 1.08 04/09/18 03:43: Sodium 138, Potassium 4.3, BUN 114 H, Creatinine 4.60 H, Glucose 127 H, Phosphorus 6.0 H Medications List Reviewed: Yes Assessment And Plan - Current Problems (Diagnosis) (1) Chronic kidney disease (CKD) stage G4/A1, severely decreased glomerular filtration rate (GFR) between 15-29 mL/min/1.73 square meter and albuminuria creatinine ratio less than 30 mg/g Current Visit: No Status: Chronic Plan: STABLE BUT WILL END UP ON DIALYSIS EVEN WITH LASIX 80 MGPO BID SHE IS NOT ABLE TO STAY OUT OF CHF. THIS IS FROM DM AND POOR DIET FOR LIFE TIME. TALKED TO DR Madonna SIMON. IF CREATIINE IS WORSE IN AM HE WILL START HD. IT IS 4 TODAY. PATIENT IS AGREEABLE. CATH FOR HD PLACED ONCE SHE GETS ON HD THE MED LIST WILL GET SMALLER. (2) Congestive cardiomyopathy Current Visit: No Status: Chronic Plan: SHE IS STILL NOT EATING WELL. SHE CLAIMED THAT SHE IS WATCHING HER DIET BUT WHEN ASKED SHE SAYS SHE EATS IN [employer]UR[employer] DAILY. SHE PROMISES TO COOK AND EAT WELL WITH LOW SALT ORDERS ARE GIVEN TO LOSE WEIGHT MANY TIMES IN THE PAST. WITH LOSS OF WEIGHT SHE WILL LIVE LONGER. CONGESTIVE CARDIOMYOPATHY MEANS- SYSTOLIC HEART FAILURE- THIS PATIENT HAS ACUTE ON CHRONIC AT THIS POINT. FOR HIM DEPT. SHE WILL EAT BETTER, SHE SAYS NOW. LASIX DRIP BY DR SIMONF STABLE BUT EDEMA MODERATE. ADD ENTRESTTO STOP AVAPRO- DONE. CXR HAS IMPROVED. SHE IS STILL COMPLAINING. STOPPED ENTRESTO UNTIL STABLE OR ON HD PER DR SIMON. STABLE FOR NOW. (3) Hypertension Current Visit: No Status: Chronic Plan: HYDRLAZINE IS HIGHER ENTRESTO STOPPED FOR NOW UNTIL CLEARED BY NEPHROLOGISTS. (4) Left foot pain Current Visit: Yes Status: Acute Plan: POSSIBLE GOUT COLCHICINE PRN. URIC ACID LEVEL. X RAY. NO INJURY NO OPEN AREAS. URIC ACID IS HIGH . I HAVE ASKED NON DESTRUCTIVE TESTING INSPECTOR TO HELP REDUCE GOUT PAIN AND URIC ACID. SHE CAN'T GET MEDS LIKE COLCHICINE SHE HAS CRF. WILL HAVE TO WAIT FOR ALLOPURNIOL UNTIL CLERAED FOR GOUT PAIN STOPPED ALLOPURINOL NEW NV STARTED. NOT ABLE TO TOLERATE ALLOPURINOL YET. (5) Nausea & vomiting Current Visit: Yes Status: Acute Plan: CT NEGATIVE FOR OBSTRUCTION. IV BOLUS GIVEN. ALREADY ON IV PROTONIX IT CAN VIRAL OR SE OF ALLOPURINOL. STOP IT FOR NOW. HD PENDING. POSSIBLE FROM ALLOPURINOL
[2018-04-09 22:07] LABS: Albumin, (SPE) 3.2 g/dL (3.8-4.8); Alpha-1-Globulins 0.3 g/dL (0.2-0.3); Gamma Globulins 1.2 g/dL (0.8-1.7); INTERPRETATION REPORT
--- NOTE | 2018-04-09 22:21 | OP ---
Date of Procedure: 04/09/2018 Surgeon: Bo Bradshaw MD, Preoperative Diagnosis: End-stage renal disease/need for hemodialysis initiation. Postoperative Diagnosis: End-stage renal disease/need for hemodialysis initiation. Procedures: Placement of right internal jugular tunneled hemodialysis catheter using ultrasound and fluoroscopy guidance interpretation used and a microintroducer set was also utilized. Anesthesia: MAC plus local with 0.25% Marcaine with epinephrine. Estimated Blood Loss: Less than 10 cc. Specimen: None. Findings: Dark, nonpulsatile blood returned. Complications: None. Implants: A 24-cm tunneled hemodialysis catheter. Disposition: Transferred to recovery room in good condition. Procedure In Detail: After informed consent was obtained, the patient was brought to the operating r oom, prepped and draped in the usual sterile fashion. After adequate anesthesia was achieved, the pa tient was positioned in steep Trendelenburg position; and using ultrasound guidance, I cannulated the right internal jugular vein on the first attempt using ultrasound guidance. The micro wire was adva nced at this time. Fluoroscopy confirmed position as well as ultrasound showing the wire within the vein. At this time, the insertion site was numbed additionally with 0.25% Marcaine and a small incis ion was made over the insertion site, and the micro introducer was then placed over the wire using Se ldinger technique. The micro wire was removed, and the standard wire was then advanced. Fluoroscopy was once again used to confirm the position of the insertion, which was verified again at this time. The introducer sheath was removed, and a suitable exit site on the chest was identified approximate ly 2 fingerbreadths below the clavicle. At this time, this area was anesthetized including the entir e tract up to the insertion site, and an incision was made using the tunneling device. The catheter was then brought up and positioned appropriately, and sequential dilatations were then performed over wire into the insertion site using the Seldinger technique. Ultimately, the introducer sheath was p laced and a wire out was called at this time. This was verified to be in good position once again wi th fluoroscopy, and then the catheter was advanced into this sheath without evidence of complication. Dark red, nonpulsatile blood was returned from the catheter at this time and flushed quite easily w ith saline, and the catheter was locked at this time using heparin super flush, and the skin incision s were then copiously irrigated and closed with a 3-0 nylon in interrupted fashion. The catheter was secured with the same set 2-0 nylon. X-ray confirmed position once again at this time, and it was f ound to be in good position. The sterile dressing was then placed overtop. The patient was transfer red to PACU in good condition. All counts were correct at the end of the case. The patient tolerate d the procedure well without complications. A followup stat chest x-ray was performed in the recover y room to verify position and to ensure no complications occurred. MELISSA/DIVYA Voice ID: [id number] Report ID: [id number]
[2018-04-10 06:14] VITALS: BMI 38.3
[2018-04-10] MEDS: INSULIN -REGULAR HUMAN 50 UNIT/0.5 ML ML SQ SCH ×4 (07:30→21:00)
[2018-04-10] MEDS: BUDESONIDE IH SCH ×2 (09:00→21:00)
[2018-04-10] MEDS: [UNRECOGNIZED DRUG - OTHER] IH SCH ×2 (09:00→21:00)
[2018-04-10] MEDS: POLYETHYL GLY 3350 17 GM/DOSE PO SCH (09:00)
[2018-04-10] MEDS: LACTULOSE 20 GM/30 ML UCUP PO SCH (09:00)
[2018-04-10] MEDS: FORMOTEROL FUMARATE IH SCH ×2 (09:00→21:00)
[2018-04-10] MEDS: MAGNESIUM HYDROXIDE 8% 30 ML PO SCH (09:00)
[2018-04-10] MEDS: INSULIN GLARGINE 100 UNITS/ML SQ SCH (09:00)
[2018-04-10] MEDS: PANTOPRAZOLE 40 MG INJ IVP SCH (09:50)
[2018-04-10] MEDS: NEBIVOLOL HCL 5 MG TAB PO SCH (09:51)
[2018-04-10] MEDS: predniSONE 10 MG TAB PO SCH (09:51)
[2018-04-10] MEDS: CALCIUM CARBONATE CHEW 500MG TAB PO SCH ×3 (09:52→16:30)
[2018-04-10] MEDS: acetaZOLAMIDE 250 MG TAB PO SCH (09:52)
[2018-04-10] MEDS: HYDRALAZINE HCL 25 MG TABLET PO SCH ×3 (09:52→21:00)
[2018-04-10] MEDS: FOLIC ACID 1 MG TABLET PO SCH (09:52)
[2018-04-10] MEDS: FUROSEMIDE 40 MG/4 ML VIAL IV SCH ×2 (09:52→18:06)
[2018-04-10] MEDS: NITROGLYCERIN 0.2 MG/HR (5 MG) PATCH TD SCH (10:03)
--- NOTE | 2018-04-10 11:26 | P.PN ---
Subjective Date of Service: 04/10/18 Chief Complaint: WEAK, FATIGUED pt with CKD and chronic LE edema, presented for worsening edema, had SHERLY Today foot pain much improved, cont presnisione Oliguric now UTI , will Dc casanova , rpt urine culture and then start on merrem of E.coli ESBL will dc diamox Will Consider to Dc lasix low iron stores: IV iron will need Gi W/U once stable, can be done as an OP Physical Examination - Vital Signs Temperature: 98.2 F Blood Pressure: 150/67 Pulse: 74 Respirations: 24 Pulse Ox (%): 99 - Physical Exam General: In no apparent distress, Oriented x3 HEENT: Atraumatic Neck: Supple, JVD not distended, Without JVD or thyroid abnormality Respiratory: Clear to auscultation bilaterally, Normal air movement Cardiovascular: No edema - Studies Medications List Reviewed: Yes Assessment And Plan - Current Problems (Diagnosis) (1) CHF (congestive heart failure) Onset Date: 03/20/18 Current Visit: No Status: Acute (2) Edema Onset Date: 03/20/18 Current Visit: No Status: Acute (3) Hx of ovarian cancer Current Visit: No Status: Acute (4) Morbid obesity with BMI of 40.0-44.9, adult Current Visit: No Status: Acute (5) CKD (chronic kidney disease) Current Visit: No Status: Chronic Qualifiers: Chronic kidney disease stage: stage 4 (severe) Qualified Code(s): N18.4 - Chronic kidney disease, stage 4 (severe) - Plan Acute kidney injury on CKD pt became oliguric and started on HD CKD likely due to HTN nephrosclerosis Sherly likely 2/2 cardiorenal syndrome baseline Cr ~2.0 this admission 2.4>2.7>3.1 IV lasix >2.7 UA : no RBC 24 hr urine for prot 2.5gm previous w/u with KARLIE, ANCA, Anti DS, c3,c4 hep panel an HIV -ve SPEP; -ve F/U IEF K/l 2.5 in view of elevated RFT Hypertension, better controlled now Anemia of chronic kidney disease with iron-deficiency anemia, was started on iron. b12 def will supply KEITH: IV iron Secondary hyperparathyroidism. corrected CA ok Congestive heart failure, diastolic dysfunction. We will try to establish better volume control. We will follow up with Cardiology. TTE; EF 60% UTI E.coli ESBL oc merrem will dc casanova
[2018-04-10] MEDS ORDERED: Meropenem 500 MG VIAL IV SCH (12:00)
[2018-04-10] MEDS: Meropenem 500 MG in NA CHLORIDE 0.9% 100 ML IV SCH (12:00)
--- NOTE | 2018-04-10 13:43 | P.PN ---
Subjective Date of Service: 04/10/18 Chief Complaint: WEAK, FATIGUED Subjective: Improving DEAN IS FEELING LOT BETTER. SHE NOW UNDERSTANDS THAT OBESITY WITH POOR FOOD CONTROL DIABETES, HTN AND RENAL FAILURE GO TOGETHER AND NOW IS AFFECTING HER HEART. SHE IS LOT BETTER. SHE EATS OUTSIDE FOOD AND KNOWS THAT SHE GETS MORE SALT AND FAT/CARBS THAN SHE NEEDS. FOOT PAIN L SIDE. MODERATE. EDEMA IS NOT BETTER YET. FOR LAST TWO DAYS PAIN IN L FOOT IS SEVERE. SHE WAS GIVEN ONE DOSE OF COLCHICINE WITH NO HELP. WITH POOR RENAL FUNCTION SHE CAN'T TAKE MORE. PAIN IS SOME BETTER WITH STEROIDS SHE HAS LESS PAIN IN L FOOT BUT HAS NAUSEA AND VOMITING THIS AM. I CALLED DR SIMON. NASUEA AND VOMITING IS GONE NOW. THIS WAS POSSIBLE FROM ALLOPURINOL IT WAS THE ONLY NEW MEDICINE. HD STARTED YEST. Review of Systems 10-point ROS is otherwise unremarkable General: Weakness, Malaise Physical Examination - Vital Signs Temperature: 98.4 F Blood Pressure: 146/68 Pulse: 71 Respirations: 20 Pulse Ox (%): 100 - Physical Exam General: Alert, Mild distress, Obese HEENT: Atraumatic, PERRLA, EOMI Neck: Supple, JVD not distended Respiratory: Clear to auscultation bilaterally, Normal air movement Cardiovascular: Regular rate/rhythm, Normal S1 S2 Gastrointestinal: Normal bowel sounds, No tenderness Musculoskeletal: No tenderness Integumentary: No rashes Neurological: Normal speech, Normal tone, Normal affect Lymphatics: No axilla or inguinal lymphadenopathy - Studies Medications List Reviewed: Yes Assessment And Plan - Current Problems (Diagnosis) (1) Chronic kidney disease (CKD) stage G4/A1, severely decreased glomerular filtration rate (GFR) between 15-29 mL/min/1.73 square meter and albuminuria creatinine ratio less than 30 mg/g Current Visit: No Status: Chronic Plan: STABLE BUT WILL END UP ON DIALYSIS EVEN WITH LASIX 80 MGPO BID SHE IS NOT ABLE TO STAY OUT OF CHF. THIS IS FROM DM AND POOR DIET FOR LIFE TIME. TALKED TO DR Madonna SIMON. IF CREATIINE IS WORSE IN AM HE WILL START HD. IT IS 4 TODAY. PATIENT IS AGREEABLE. CATH FOR HD PLACED ONCE SHE GETS ON HD THE MED LIST WILL GET SMALLER. HD STARTED. FEELS WELL. (2) Congestive cardiomyopathy Current Visit: No Status: Chronic Plan: SHE IS STILL NOT EATING WELL. SHE CLAIMED THAT SHE IS WATCHING HER DIET BUT WHEN ASKED SHE SAYS SHE EATS IN [employer] DAILY. SHE PROMISES TO COOK AND EAT WELL WITH LOW SALT ORDERS ARE GIVEN TO LOSE WEIGHT MANY TIMES IN THE PAST. WITH LOSS OF WEIGHT SHE WILL LIVE LONGER. CONGESTIVE CARDIOMYOPATHY MEANS- SYSTOLIC HEART FAILURE- THIS PATIENT HAS ACUTE ON CHRONIC AT THIS POINT. FOR HIM DEPT. SHE WILL EAT BETTER, SHE SAYS NOW. LASIX DRIP BY DR SIMONF STABLE BUT EDEMA MODERATE. ADD ENTRESTTO STOP AVAPRO- DONE. CXR HAS IMPROVED. SHE IS STILL COMPLAINING. STOPPED ENTRESTO UNTIL STABLE OR ON HD PER DR SIMON. STABLE FOR NOW. (3) Hypertension Current Visit: No Status: Chronic Plan: HYDRLAZINE IS HIGHER ENTRESTO STOPPED FOR NOW UNTIL CLEARED BY NEPHROLOGISTS. (4) Left foot pain Current Visit: Yes Status: Acute Plan: POSSIBLE GOUT COLCHICINE PRN. URIC ACID LEVEL. X RAY. NO INJURY NO OPEN AREAS. URIC ACID IS HIGH . I HAVE ASKED PUBLIC HOUSING MANAGER TO HELP REDUCE GOUT PAIN AND URIC ACID. SHE CAN'T GET MEDS LIKE COLCHICINE SHE HAS CRF. WILL HAVE TO WAIT FOR ALLOPURNIOL UNTIL CLERAED FOR GOUT PAIN STOPPED ALLOPURINOL NEW NV STARTED. NOT ABLE TO TOLERATE ALLOPURINOL YET. (5) Nausea & vomiting Current Visit: Yes Status: Acute Plan: CT NEGATIVE FOR OBSTRUCTION. IV BOLUS GIVEN. ALREADY ON IV PROTONIX IT CAN VIRAL OR SE OF ALLOPURINOL. STOP IT FOR NOW. HD PENDING. POSSIBLE FROM ALLOPURINOL (6) Urinary tract infection due to extended-spectrum beta lactamase (ESBL) producing Escherichia coli Current Visit: Yes Status: Acute Plan: THIS IS A SPECIMEN FROM AVILES BAG. IT IS A CONTAMINANT. IT SHOULD NOT BE TREATED WITH STRONG ABX. I WILL TALK TO PUBLIC HOUSING MANAGER. I WILL ADVISE REMOVAL OF AVILES, SPECIMEN FROM INSIDE WITH NEW AVILES. (7) Chronic venous hypertension (idiopathic) with ulcer of left lower extremity Current Visit: No Status: Acute
[2018-04-10] MEDS: SOD FERRIC GLUC COMPLX/SUCROSE 125 MG in NA CHLORIDE 0.9% 100 ML IV SCH (18:06)
[2018-04-10] MEDS: ENOXAPARIN 30 MG/0.3 ML SQ SCH (18:06)
[2018-04-11] MEDS: PARoxetine HCl 10 MG TAB PO SCH ×2 (00:14→20:28)
[2018-04-11] MEDS: Meropenem 500 MG in NA CHLORIDE 0.9% 100 ML IV SCH (06:27)
[2018-04-11] MEDS: INSULIN -REGULAR HUMAN 50 UNIT/0.5 ML ML SQ SCH ×4 (07:30→20:28)
[2018-04-11 07:58] LABS: Absolute Monocytes 0.8 K/uL (0.1-1.3); Absolute Neutrophil 6.1 K/uL (1.8-8.0); Basophils % 0.4 % (0-1.3); Eosinophils % 0.7 % (0-4.4); Hematocrit 26.9 % (36.0-45.0); Lymphocytes % 12.3 % (15.3-44.8); MCH 28.4 pg (27.0-35.0); MCV 88.2 fL (80-100); MPV 9.8 fL (7.6-11.3); Monocytes % 10.4 % (3.3-12.3); RBC Red Blood Cell Count 3.05 M/uL (3.86-4.86)
[2018-04-11 08:04] LABS: Potassium 3.7 mmol/L (3.5-5.1)
[2018-04-11] MEDS: [UNRECOGNIZED DRUG - OTHER] IH SCH ×2 (09:00→20:29)
[2018-04-11] MEDS: BUDESONIDE IH SCH ×2 (09:00→20:29)
[2018-04-11] MEDS: POLYETHYL GLY 3350 17 GM/DOSE PO SCH (09:00)
[2018-04-11] MEDS: LACTULOSE 20 GM/30 ML UCUP PO SCH (09:00)
[2018-04-11] MEDS: MAGNESIUM HYDROXIDE 8% 30 ML PO SCH (09:00)
[2018-04-11] MEDS: FORMOTEROL FUMARATE IH SCH ×2 (09:00→20:29)
[2018-04-11] MEDS: FUROSEMIDE 40 MG/4 ML VIAL IV SCH ×2 (09:57→17:30)
[2018-04-11] MEDS: PANTOPRAZOLE 40 MG INJ IVP SCH (09:58)
[2018-04-11] MEDS: NEBIVOLOL HCL 5 MG TAB PO SCH (09:58)
[2018-04-11] MEDS: HYDRALAZINE HCL 25 MG TABLET PO SCH ×3 (09:58→20:28)
[2018-04-11] MEDS: NITROGLYCERIN 0.2 MG/HR (5 MG) PATCH TD SCH (09:58)
[2018-04-11] MEDS: CALCIUM CARBONATE CHEW 500MG TAB PO SCH ×3 (09:59→17:30)
[2018-04-11] MEDS: FOLIC ACID 1 MG TABLET PO SCH (09:59)
[2018-04-11] MEDS: predniSONE 10 MG TAB PO SCH (09:59)
[2018-04-11] MEDS: INSULIN GLARGINE 100 UNITS/ML SQ SCH (10:00)
--- NOTE | 2018-04-11 10:31 | P.PN ---
Subjective Date of Service: 04/11/18 Chief Complaint: WEAK, FATIGUED pt with CKD and chronic LE edema, presented for worsening edema, had COOPER Today pain resolved edema resolved HD today Will monitor RFT while off HD UTI , Casanova Dc/d will follow on repeated Ucx after casanova removal and decide to start Abx accordingly Will Consider to Dc lasix low iron stores: IV iron will need Gi W/U once stable, can be done as an OP Physical Examination - Vital Signs Temperature: 97.5 F Blood Pressure: 141/67 Pulse: 69 Respirations: 16 Pulse Ox (%): 93 - Physical Exam General: Alert, Oriented x3 HEENT: Atraumatic Neck: Supple, Without JVD or thyroid abnormality Respiratory: Clear to auscultation bilaterally, Normal air movement Cardiovascular: No edema, Normal S1 S2, No gallops, No rubs, No murmurs Gastrointestinal: Normal bowel sounds - Studies Laboratory Data (last 24 hrs) 04/11/18 07:30: Sodium 142, Potassium 3.7, BUN 41 H D, Creatinine 2.20 H D, Glucose 138 H 04/11/18 07:30: WBC 8.0 D, Hgb 8.6 L, Hct 26.9 L, Plt Count 178 D Medications List Reviewed: Yes Assessment And Plan - Current Problems (Diagnosis) (1) CHF (congestive heart failure) Onset Date: 03/20/18 Current Visit: No Status: Acute (2) Edema Onset Date: 03/20/18 Current Visit: No Status: Acute (3) Hx of ovarian cancer Current Visit: No Status: Acute (4) Morbid obesity with BMI of 40.0-44.9, adult Current Visit: No Status: Acute (5) CKD (chronic kidney disease) Current Visit: No Status: Chronic Qualifiers: Chronic kidney disease stage: stage 4 (severe) Qualified Code(s): N18.4 - Chronic kidney disease, stage 4 (severe) - Plan Acute kidney injury on CKD pt became oliguric and started on HD euvlemic now CKD likely due to HTN nephrosclerosis Cooper likely 2/2 cardiorenal syndrome baseline Cr ~2.0 this admission 2.4>2.7>3.1 IV lasix >2.7 >2.9 and started on HD UA : no RBC 24 hr urine for prot 2.5gm previous w/u with KARLIE, ANCA, Anti DS, c3,c4 hep panel an HIV -ve SPEP; -ve F/U IEF K/l 2.5 in view of elevated RFT Hypertension, better controlled now Anemia of chronic kidney disease with iron-deficiency anemia, was started on iron. b12 def will supply KEITH: IV iron Secondary hyperparathyroidism. corrected CA ok Congestive heart failure, diastolic dysfunction. We will try to establish better volume control. We will follow up with Cardiology. TTE; EF 60% UTI E.coli ESBL Karlo anthony follow repearted Cx
--- NOTE | 2018-04-11 14:44 | P.PN ---
Subjective Date of Service: 04/11/18 Chief Complaint: DYSPNEA HAS IMPROVED Subjective: Improving DEAN IS FEELING LOT BETTER. SHE NOW UNDERSTANDS THAT OBESITY WITH POOR FOOD CONTROL DIABETES, HTN AND RENAL FAILURE GO TOGETHER AND NOW IS AFFECTING HER HEART. SHE IS LOT BETTER. SHE EATS OUTSIDE FOOD AND KNOWS THAT SHE GETS MORE SALT AND FAT/CARBS THAN SHE NEEDS. FOOT PAIN L SIDE. MODERATE. EDEMA IS NOT BETTER YET. FOR LAST TWO DAYS PAIN IN L FOOT IS SEVERE. SHE WAS GIVEN ONE DOSE OF COLCHICINE WITH NO HELP. WITH POOR RENAL FUNCTION SHE CAN'T TAKE MORE. PAIN IS SOME BETTER WITH STEROIDS SHE HAS LESS PAIN IN L FOOT BUT HAS NAUSEA AND VOMITING THIS AM. I CALLED DR SIMON. NASUEA AND VOMITING IS GONE NOW. THIS WAS POSSIBLE FROM ALLOPURINOL IT WAS THE ONLY NEW MEDICINE. HD STARTED YEST. HD STARTED, EDEMA, DYSPNEA HAVE IMPROVED. SHE HAS MILD FOOT PAIN. NO MORE NAUSEA AND VOMITING. Review of Systems 10-point ROS is otherwise unremarkable General: Weakness, Malaise Physical Examination - Vital Signs Temperature: 97.5 F Blood Pressure: 141/67 Pulse: 69 Respirations: 16 Pulse Ox (%): 93 - Physical Exam General: Alert, Mild distress HEENT: Atraumatic, PERRLA, EOMI Neck: Supple, JVD not distended Respiratory: Clear to auscultation bilaterally, Normal air movement Cardiovascular: Regular rate/rhythm, Normal S1 S2 Gastrointestinal: Normal bowel sounds, No tenderness Musculoskeletal: No tenderness Integumentary: No rashes Neurological: Normal speech, Normal tone, Normal affect Lymphatics: No axilla or inguinal lymphadenopathy Urinary: Other (NO UTI SS.) - Studies Laboratory Data (last 24 hrs) 04/11/18 07:30: Sodium 142, Potassium 3.7, BUN 41 H D, Creatinine 2.20 H D, Glucose 138 H 04/11/18 07:30: WBC 8.0 D, Hgb 8.6 L, Hct 26.9 L, Plt Count 178 D Microbiology Data (last 24 hrs): 04/08/18 15:30 Catheterized Urine Ballico Count - Final >100,000 CFU/ML. 04/08/18 15:30 Catheterized Urine - Final Escherichia Coli Enterococcus Faecalis Medications List Reviewed: Yes Assessment And Plan - Current Problems (Diagnosis) (1) Chronic kidney disease (CKD) stage G4/A1, severely decreased glomerular filtration rate (GFR) between 15-29 mL/min/1.73 square meter and albuminuria creatinine ratio less than 30 mg/g Current Visit: No Status: Chronic Plan: STABLE BUT WILL END UP ON DIALYSIS EVEN WITH LASIX 80 MGPO BID SHE IS NOT ABLE TO STAY OUT OF CHF. THIS IS FROM DM AND POOR DIET FOR LIFE TIME. TALKED TO DR Madonna SIMON. IF CREATIINE IS WORSE IN AM HE WILL START HD. IT IS 4 TODAY. PATIENT IS AGREEABLE. CATH FOR HD PLACED ONCE SHE GETS ON HD THE MED LIST WILL GET SMALLER. HD STARTED. FEELS WELL. ON HD. DOING WELL. WE ARE WAITING FOR INSURANCE TO APPROVE HOME HD. (2) Congestive cardiomyopathy Current Visit: No Status: Chronic Plan: SHE IS STILL NOT EATING WELL. SHE CLAIMED THAT SHE IS WATCHING HER DIET BUT WHEN ASKED SHE SAYS SHE EATS IN [employer] DAILY. SHE PROMISES TO COOK AND EAT WELL WITH LOW SALT ORDERS ARE GIVEN TO LOSE WEIGHT MANY TIMES IN THE PAST. WITH LOSS OF WEIGHT SHE WILL LIVE LONGER. CONGESTIVE CARDIOMYOPATHY MEANS- SYSTOLIC HEART FAILURE- THIS PATIENT HAS ACUTE ON CHRONIC AT THIS POINT. FOR HIM DEPT. SHE WILL EAT BETTER, SHE SAYS NOW. LASIX DRIP BY DR SIMONF STABLE BUT EDEMA MODERATE. ADD ENTRESTTO STOP AVAPRO- DONE. CXR HAS IMPROVED. SHE IS STILL COMPLAINING. STOPPED ENTRESTO UNTIL STABLE OR ON HD PER DR SIMON. STABLE FOR NOW. (3) Hypertension Current Visit: No Status: Chronic Plan: HYDRLAZINE IS HIGHER ENTRESTO STOPPED FOR NOW UNTIL CLEARED BY NEPHROLOGISTS. (4) Left foot pain Current Visit: Yes Status: Acute Plan: POSSIBLE GOUT COLCHICINE PRN. URIC ACID LEVEL. X RAY. NO INJURY NO OPEN AREAS. URIC ACID IS HIGH . I HAVE ASKED COMMERCIAL LOAN ASSISTANT TO HELP REDUCE GOUT PAIN AND URIC ACID. SHE CAN'T GET MEDS LIKE COLCHICINE SHE HAS CRF. WILL HAVE TO WAIT FOR ALLOPURNIOL UNTIL CLERAED FOR GOUT PAIN STOPPED ALLOPURINOL NEW NV STARTED. NOT ABLE TO TOLERATE ALLOPURINOL YET. (5) Nausea & vomiting Current Visit: Yes Status: Acute Plan: CT NEGATIVE FOR OBSTRUCTION. IV BOLUS GIVEN. ALREADY ON IV PROTONIX IT CAN VIRAL OR SE OF ALLOPURINOL. STOP IT FOR NOW. HD PENDING. POSSIBLE FROM ALLOPURINOL (6) Chronic venous hypertension (idiopathic) with ulcer of left lower extremity Current Visit: No Status: Acute (7) Abnormal urinalysis Current Visit: Yes Status: Acute Plan: SPECIMEN WAS COLLECTED FROM AVILES CATHETER. THIS IS NOT A STANDARD WAY TO COLLECT URINE. AVILES SPECIMENS WITHOUT ANY SYMPTOMS MUST BE IGNORED. WE ARE TREATING PATIENT AND WE MUST NOT TREAT COLONIZED BACTERIA IN AVILES CATHETER OR AVILES INFESTED URETHRA. HER URINE SAMPLE WAS COLLECTED AFTER REMOVAL OF AVILES THAT IS PENDING. I HAD ADVISED TO ST CATH AND GET SAMPLE ASYMPTOMATIC URINE BACTERIA MUST NOT BE TREATED. THIS IS A GOLD STANDARD. REMOVE THE DIAGNOSIS FROM LIST AND STOP MERREM UNTIL SHE REALLY HAS ANY SYMPTOMS.
[2018-04-11] MEDS: ENOXAPARIN 30 MG/0.3 ML SQ SCH (17:00)
[2018-04-11] MEDS: SOD FERRIC GLUC COMPLX/SUCROSE 125 MG in NA CHLORIDE 0.9% 100 ML IV SCH (17:30)
[2018-04-12 05:46] LABS: Urine Appearance TURBID; Urine Bilirubin NEGATIVE (NEG); Urine Blood 1+ (NEG); Urine Color YELLOW; Urine Glucose NEGATIVE (NEG); Urine Protein 2+ (NEG); Urine Specific Gravity 1.015 (1.005-1.030); Urine Urobilinogen 0.2 mg/dL (0.2-1.0); Urine pH 5.5 (5.0-7.0)
[2018-04-12 05:57] LABS: Urine Bacteria LOADED /HPF (<20); Urine Culture Reflex Order NOT NEEDED
[2018-04-12 05:59] LABS: Urine RBC NONE SEEN /HPF (NONE SEEN)
[2018-04-12 06:26] LABS: Potassium 3.5 mmol/L (3.5-5.1)
[2018-04-12] MEDS ORDERED: POTASSIUM CL SA 10 MEQ TAB PO ONE (06:30)
[2018-04-12] MEDS: CALCIUM CARBONATE CHEW 500MG TAB PO SCH ×3 (06:40→16:41)
[2018-04-12] MEDS: INSULIN -REGULAR HUMAN 50 UNIT/0.5 ML ML SQ SCH ×4 (07:30→20:57)
[2018-04-12] MEDS: POLYETHYL GLY 3350 17 GM/DOSE PO SCH (08:56)
[2018-04-12] MEDS: INSULIN GLARGINE 100 UNITS/ML SQ SCH (08:56)
[2018-04-12] MEDS: LACTULOSE 20 GM/30 ML UCUP PO SCH (08:57)
[2018-04-12] MEDS: MAGNESIUM HYDROXIDE 8% 30 ML PO SCH (08:57)
[2018-04-12] MEDS: NITROGLYCERIN 0.2 MG/HR (5 MG) PATCH TD SCH (08:58)
[2018-04-12] MEDS: [UNRECOGNIZED DRUG - OTHER] IH SCH ×2 (09:00→20:56)
[2018-04-12] MEDS: BUDESONIDE IH SCH ×2 (09:00→20:56)
[2018-04-12] MEDS: FORMOTEROL FUMARATE IH SCH ×2 (09:00→20:56)
[2018-04-12] MEDS: FOLIC ACID 1 MG TABLET PO SCH (09:00)
[2018-04-12] MEDS: FUROSEMIDE 40 MG/4 ML VIAL IV SCH ×2 (09:01→16:41)
[2018-04-12] MEDS: NEBIVOLOL HCL 5 MG TAB PO SCH (09:01)
[2018-04-12] MEDS: PANTOPRAZOLE 40 MG INJ IVP SCH (09:01)
[2018-04-12] MEDS: predniSONE 10 MG TAB PO SCH (09:02)
[2018-04-12] MEDS: HYDRALAZINE HCL 25 MG TABLET PO SCH ×3 (09:03→20:56)
[2018-04-12] MEDS ORDERED: COLCHICINE 0.6 MG TAB PO ONE (10:03)
--- NOTE | 2018-04-12 10:06 | P.PN ---
Subjective Date of Service: 04/12/18 Chief Complaint: PAIN IN L FOOT Subjective: No new changes DEAN IS FEELING LOT BETTER. SHE NOW UNDERSTANDS THAT OBESITY WITH POOR FOOD CONTROL DIABETES, HTN AND RENAL FAILURE GO TOGETHER AND NOW IS AFFECTING HER HEART. SHE IS LOT BETTER. SHE EATS OUTSIDE FOOD AND KNOWS THAT SHE GETS MORE SALT AND FAT/CARBS THAN SHE NEEDS. FOOT PAIN L SIDE. MODERATE. EDEMA IS NOT BETTER YET. FOR LAST TWO DAYS PAIN IN L FOOT IS SEVERE. SHE WAS GIVEN ONE DOSE OF COLCHICINE WITH NO HELP. WITH POOR RENAL FUNCTION SHE CAN'T TAKE MORE. PAIN IS SOME BETTER WITH STEROIDS SHE HAS LESS PAIN IN L FOOT BUT HAS NAUSEA AND VOMITING THIS AM. I CALLED DR SIMON. NASUEA AND VOMITING IS GONE NOW. THIS WAS POSSIBLE FROM ALLOPURINOL IT WAS THE ONLY NEW MEDICINE. HD STARTED YEST. HD STARTED, EDEMA, DYSPNEA HAVE IMPROVED. SHE HAS MILD FOOT PAIN. NO MORE NAUSEA AND VOMITING. HER PAIN INL FOOT IS THE MAIN COMPLAINT. DYSPNEA, EDEMA HAVE IMPROVED. PREDNISONE IS NOT HELPING PAIN. Review of Systems 10-point ROS is otherwise unremarkable Musculoskeletal: Foot Pain Physical Examination - Vital Signs Temperature: 97.9 F Blood Pressure: 142/60 Pulse: 71 Respirations: 28 Pulse Ox (%): 95 - Physical Exam General: Alert, Mild distress, Obese HEENT: Atraumatic, PERRLA, EOMI Neck: Supple, JVD not distended Respiratory: Clear to auscultation bilaterally, Normal air movement, Other Cardiovascular: Regular rate/rhythm, Normal S1 S2 Gastrointestinal: Normal bowel sounds, No tenderness Musculoskeletal: No tenderness Integumentary: No rashes Neurological: Normal speech, Normal tone, Normal affect Lymphatics: No axilla or inguinal lymphadenopathy - Studies Laboratory Data (last 24 hrs) 04/12/18 05:44: Sodium 144, Potassium 3.5, BUN 27 H, Creatinine 1.70 H, Glucose 99 Microbiology Data (last 24 hrs): 04/08/18 15:30 Catheterized Urine [place] Count - Final >100,000 CFU/ML. 04/08/18 15:30 Catheterized Urine - Final Escherichia Coli Enterococcus Faecalis Medications List Reviewed: Yes Assessment And Plan - Current Problems (Diagnosis) (1) Chronic kidney disease (CKD) stage G4/A1, severely decreased glomerular filtration rate (GFR) between 15-29 mL/min/1.73 square meter and albuminuria creatinine ratio less than 30 mg/g Current Visit: No Status: Chronic Plan: STABLE BUT WILL END UP ON DIALYSIS EVEN WITH LASIX 80 MGPO BID SHE IS NOT ABLE TO STAY OUT OF CHF. THIS IS FROM DM AND POOR DIET FOR LIFE TIME. TALKED TO DR Madonna SIMON. IF CREATIINE IS WORSE IN AM HE WILL START HD. IT IS 4 TODAY. PATIENT IS AGREEABLE. CATH FOR HD PLACED ONCE SHE GETS ON HD THE MED LIST WILL GET SMALLER. HD STARTED. FEELS WELL. ON HD. DOING WELL. WE ARE WAITING FOR INSURANCE TO APPROVE HOME HD. (2) Congestive cardiomyopathy Current Visit: No Status: Chronic Plan: SHE IS STILL NOT EATING WELL. SHE CLAIMED THAT SHE IS WATCHING HER DIET BUT WHEN ASKED SHE SAYS SHE EATS IN [employer]UR[employer] DAILY. SHE PROMISES TO COOK AND EAT WELL WITH LOW SALT ORDERS ARE GIVEN TO LOSE WEIGHT MANY TIMES IN THE PAST. WITH LOSS OF WEIGHT SHE WILL LIVE LONGER. CONGESTIVE CARDIOMYOPATHY MEANS- SYSTOLIC HEART FAILURE- THIS PATIENT HAS ACUTE ON CHRONIC AT THIS POINT. FOR HIM DEPT. SHE WILL EAT BETTER, SHE SAYS NOW. LASIX DRIP BY DR SIMONF STABLE BUT EDEMA MODERATE. ADD ENTRESTTO STOP AVAPRO- DONE. CXR HAS IMPROVED. SHE IS STILL COMPLAINING. STOPPED ENTRESTO UNTIL STABLE OR ON HD PER DR SIMON. STABLE FOR NOW. (3) Hypertension Current Visit: No Status: Chronic Plan: HYDRLAZINE IS HIGHER ENTRESTO STOPPED FOR NOW UNTIL CLEARED BY NEPHROLOGISTS. (4) Left foot pain Current Visit: Yes Status: Acute Plan: POSSIBLE GOUT COLCHICINE PRN. URIC ACID LEVEL. X RAY. NO INJURY NO OPEN AREAS. URIC ACID IS HIGH . I HAVE ASKED MEDIA MARKETING MANAGER TO HELP REDUCE GOUT PAIN AND URIC ACID. SHE CAN'T GET MEDS LIKE COLCHICINE SHE HAS CRF. WILL HAVE TO WAIT FOR ALLOPURNIOL UNTIL CLERAED FOR GOUT PAIN STOPPED ALLOPURINOL NEW NV STARTED. NOT ABLE TO TOLERATE ALLOPURINOL YET. CONSULT ORTHO. (5) Nausea & vomiting Current Visit: Yes Status: Acute Plan: CT NEGATIVE FOR OBSTRUCTION. IV BOLUS GIVEN. ALREADY ON IV PROTONIX IT CAN VIRAL OR SE OF ALLOPURINOL. STOP IT FOR NOW. HD PENDING. POSSIBLE FROM ALLOPURINOL (6) Chronic venous hypertension (idiopathic) with ulcer of left lower extremity Current Visit: No Status: Acute (7) Abnormal urinalysis Current Visit: Yes Status: Acute Plan: SPECIMEN WAS COLLECTED FROM AVILES CATHETER. THIS IS NOT A STANDARD WAY TO COLLECT URINE. AVILES SPECIMENS WITHOUT ANY SYMPTOMS MUST BE IGNORED. WE ARE TREATING PATIENT AND WE MUST NOT TREAT COLONIZED BACTERIA IN AVILES CATHETER OR AVILES INFESTED URETHRA. HER URINE SAMPLE WAS COLLECTED AFTER REMOVAL OF AVILES THAT IS PENDING. I HAD ADVISED TO ST CATH AND GET SAMPLE ASYMPTOMATIC URINE BACTERIA MUST NOT BE TREATED. THIS IS A GOLD STANDARD. REMOVE THE DIAGNOSIS FROM LIST AND STOP MERREM UNTIL SHE REALLY HAS ANY SYMPTOMS. REPEAT SPECIMEN IS POSITIVE BUT STILL NO SYMPTOMS. SHE SHOULD NOT BE GIVEN HEAVY ANTIBIOTIC FOR COLONIZED URINE. THAT IS NOT A GOLD STANDARD. I WILL SEE IF SHE HAS ANY SYMPTOM.
[2018-04-12] MEDS ORDERED: predniSONE 20 MG TAB PO ONE (10:28)
--- NOTE | 2018-04-12 15:51 | CON ---
Reason For Consultation: Left foot pain. Date of Consultation: 04/12/2018 History Of Present Illness: Ms. De Jesus is a 72-year-old dialysis dependent woman admitted for CHF, who complains of foot pain for 3 days duration. No history of trauma. No clear etiology of the foot pain. X-rays were negative for fracture dislocation. She has global tenderness in her foot. Physical Examination: On examination, she is obese, dialysis dependent on hemodialysis. Her foot is painful globally, there is no focal area of pain. She has diffuse neurovascular deficits and this is suggestive of neuropathic origin. Impression: Foot pain, unclear etiology. Severity moderate. Plan: To treat her with steroids, if she is a candidate, investigate the possibility if this is a gouty arthropathy. I have little to offer from an orthopedic standpoint. REJI/DIVYA Voice ID: [id number] Report ID: [id number] REBEKAH
[2018-04-12] MEDS: SOD FERRIC GLUC COMPLX/SUCROSE 125 MG in NA CHLORIDE 0.9% 100 ML IV SCH (16:40)
[2018-04-12] MEDS: ENOXAPARIN 30 MG/0.3 ML SQ SCH (16:46)
[2018-04-12] MEDS: PARoxetine HCl 10 MG TAB PO SCH (20:56)
--- NOTE | 2018-04-13 00:49 | PN ---
Date of Progress Note: 04/12/2018 Chief Complaint: Fluid overload, congestive heart failure, chronic kidney disease. The patient was treated primarily with diuretics due to the fact that azotemia was elevated. The patient had dialysi s initiated. She underwent dialysis yesterday. The patient today is complaining of foot pain. She was evaluated by orthopedic surgeon. She does not require procedure, although she has a gouty arthri tis and was started on prednisone and received 1 dose of colchicine. Colchicine dose was reviewed an d adjusted to current kidney function. The patient has chronic kidney disease, stage 3 and developed acute kidney injury secondary to cardiorenal syndrome. Currently, the patient is dialysis dependent . Review of Systems: Denies fever, chills. She is complaining of the foot pain. Physical Examination: Vital Signs: Blood pressure 141/67, heart rate 69, respiratory rate 16, SpO2 93%. General: The patient is alert, oriented. Eyes: Anicteric sclerae. EOMI. Ears, Nose, Mouth and Throat: Oral mucosa moist. No pallor. Neck: Supple. No JVD. No bruits. Lungs: Clear to auscultation bilaterally. Heart: S1, S2. Abdomen: Soft, benign, obese. Extremities: Edema present in both legs. Laboratory Data: Hemoglobin 8.6, WBC 8.0, platelet count is 178,000. Chemistry showed sodium 144, p otassium 3.5, chloride 104, CO2 of 34, BUN 27, creatinine 1.7, glucose 99, calcium 8.5. Impression And Plan: 1.Utwnx-tp-[id number] kidney injury. Continue low-sodium diet and p.o. fluid restriction. The patient will continue diuretic. Monitor urine output. 2.Gouty arthritis. The patient received prednisone dose along with colchicine dose. Monitor for an y evidence of fracture. The patient may need x-ray. 3.Anemia in chronic kidney disease. Monitor hemoglobin level. Adjust DAYSI. 4.Diabetes mellitus. Continue insulin. EB/MODL Voice ID: [id number] Report ID: [id number]
[2018-04-13 06:13] LABS: Potassium 3.9 mmol/L (3.5-5.1)
[2018-04-13] MEDS: INSULIN -REGULAR HUMAN 50 UNIT/0.5 ML ML SQ SCH ×4 (07:30→22:05)
[2018-04-13] MEDS: BUDESONIDE IH SCH ×2 (09:00→21:00)
[2018-04-13] MEDS: FORMOTEROL FUMARATE IH SCH ×2 (09:00→21:00)
[2018-04-13] MEDS: [UNRECOGNIZED DRUG - OTHER] IH SCH ×2 (09:00→21:00)
[2018-04-13] MEDS: CALCIUM CARBONATE CHEW 500MG TAB PO SCH ×3 (09:39→16:17)
[2018-04-13] MEDS: NEBIVOLOL HCL 5 MG TAB PO SCH (09:39)
[2018-04-13] MEDS: HYDRALAZINE HCL 25 MG TABLET PO SCH ×3 (09:40→22:06)
[2018-04-13] MEDS: LACTULOSE 20 GM/30 ML UCUP PO SCH (09:40)
[2018-04-13] MEDS: FOLIC ACID 1 MG TABLET PO SCH (09:40)
[2018-04-13] MEDS: PANTOPRAZOLE 40 MG INJ IVP SCH (09:40)
[2018-04-13] MEDS: MAGNESIUM HYDROXIDE 8% 30 ML PO SCH (09:40)
[2018-04-13] MEDS: POLYETHYL GLY 3350 17 GM/DOSE PO SCH (09:40)
[2018-04-13] MEDS: FUROSEMIDE 40 MG/4 ML VIAL IV SCH (09:40)
[2018-04-13] MEDS: INSULIN GLARGINE 100 UNITS/ML SQ SCH (09:41)
[2018-04-13] MEDS: NITROGLYCERIN 0.2 MG/HR (5 MG) PATCH TD SCH (09:42)
--- NOTE | 2018-04-13 10:22 | P.PN ---
Subjective Date of Service: 04/13/18 Chief Complaint: L FOOT PAIN. NO OTHER COMPLAINTS. Subjective: Improving DEAN IS FEELING LOT BETTER. SHE NOW UNDERSTANDS THAT OBESITY WITH POOR FOOD CONTROL DIABETES, HTN AND RENAL FAILURE GO TOGETHER AND NOW IS AFFECTING HER HEART. SHE IS LOT BETTER. SHE EATS OUTSIDE FOOD AND KNOWS THAT SHE GETS MORE SALT AND FAT/CARBS THAN SHE NEEDS. FOOT PAIN L SIDE. MODERATE. EDEMA IS NOT BETTER YET. FOR LAST TWO DAYS PAIN IN L FOOT IS SEVERE. SHE WAS GIVEN ONE DOSE OF COLCHICINE WITH NO HELP. WITH POOR RENAL FUNCTION SHE CAN'T TAKE MORE. PAIN IS SOME BETTER WITH STEROIDS SHE HAS LESS PAIN IN L FOOT BUT HAS NAUSEA AND VOMITING THIS AM. I CALLED DR SIMON. NASUEA AND VOMITING IS GONE NOW. THIS WAS POSSIBLE FROM ALLOPURINOL IT WAS THE ONLY NEW MEDICINE. HD STARTED YEST. HD STARTED, EDEMA, DYSPNEA HAVE IMPROVED. SHE HAS MILD FOOT PAIN. NO MORE NAUSEA AND VOMITING. HER PAIN INL FOOT IS THE MAIN COMPLAINT. DYSPNEA, EDEMA HAVE IMPROVED. PREDNISONE IS NOT HELPING PAIN. MS. FIELD IS ALSO TIRED OF WAITING FOR INSURANCE APPROVAL FOR DIALYSIS. SHE HAS L FOOT PAIN . SHE HAS NO UTI SYMPTOMS. Review of Systems 10-point ROS is otherwise unremarkable Physical Examination - Vital Signs Temperature: 97.5 F Blood Pressure: 160/72 Pulse: 73 Respirations: 18 Pulse Ox (%): 99 - Physical Exam General: Alert, In no apparent distress, Mild distress (L FOOT PAIN) HEENT: Atraumatic, PERRLA, EOMI Neck: Supple, JVD not distended Respiratory: Clear to auscultation bilaterally, Normal air movement Cardiovascular: Regular rate/rhythm, Normal S1 S2 Gastrointestinal: Normal bowel sounds, No tenderness Musculoskeletal: No tenderness Integumentary: No rashes Neurological: Normal speech, Normal tone, Normal affect Lymphatics: No axilla or inguinal lymphadenopathy - Studies Laboratory Data (last 24 hrs) 04/13/18 05:10: Sodium 142, Potassium 3.9, BUN 47 H D, Creatinine 2.60 H, Glucose 103 Medications List Reviewed: Yes Assessment And Plan - Current Problems (Diagnosis) (1) Chronic kidney disease (CKD) stage G4/A1, severely decreased glomerular filtration rate (GFR) between 15-29 mL/min/1.73 square meter and albuminuria creatinine ratio less than 30 mg/g Current Visit: No Status: Chronic Plan: STABLE BUT WILL END UP ON DIALYSIS EVEN WITH LASIX 80 MGPO BID SHE IS NOT ABLE TO STAY OUT OF CHF. THIS IS FROM DM AND POOR DIET FOR LIFE TIME. TALKED TO DR Madonna SIMON. IF CREATIINE IS WORSE IN AM HE WILL START HD. IT IS 4 TODAY. PATIENT IS AGREEABLE. CATH FOR HD PLACED ONCE SHE GETS ON HD THE MED LIST WILL GET SMALLER. HD STARTED. FEELS WELL. ON HD. DOING WELL. WE ARE WAITING FOR INSURANCE TO APPROVE HOME HD. (2) Congestive cardiomyopathy Current Visit: No Status: Chronic Plan: SHE IS STILL NOT EATING WELL. SHE CLAIMED THAT SHE IS WATCHING HER DIET BUT WHEN ASKED SHE SAYS SHE EATS IN [employer] DAILY. SHE PROMISES TO COOK AND EAT WELL WITH LOW SALT ORDERS ARE GIVEN TO LOSE WEIGHT MANY TIMES IN THE PAST. WITH LOSS OF WEIGHT SHE WILL LIVE LONGER. CONGESTIVE CARDIOMYOPATHY MEANS- SYSTOLIC HEART FAILURE- THIS PATIENT HAS ACUTE ON CHRONIC AT THIS POINT. FOR HIM DEPT. SHE WILL EAT BETTER, SHE SAYS NOW. LASIX DRIP BY DR SIMONF STABLE BUT EDEMA MODERATE. ADD ENTRESTTO STOP AVAPRO- DONE. CXR HAS IMPROVED. SHE IS STILL COMPLAINING. STOPPED ENTRESTO UNTIL STABLE OR ON HD PER DR SIMON. STABLE FOR NOW. (3) Hypertension Current Visit: No Status: Chronic Plan: HYDRLAZINE IS HIGHER ENTRESTO STOPPED FOR NOW UNTIL CLEARED BY NEPHROLOGISTS. (4) Left foot pain Current Visit: Yes Status: Acute Plan: POSSIBLE GOUT COLCHICINE PRN. URIC ACID LEVEL. X RAY. NO INJURY NO OPEN AREAS. URIC ACID IS HIGH . I HAVE ASKED RESEARCH ENVIRONMENTAL SCIENTIST TO HELP REDUCE GOUT PAIN AND URIC ACID. SHE CAN'T GET MEDS LIKE COLCHICINE SHE HAS CRF. WILL HAVE TO WAIT FOR ALLOPURNIOL UNTIL CLERAED FOR GOUT PAIN STOPPED ALLOPURINOL NEW NV STARTED. NOT ABLE TO TOLERATE ALLOPURINOL YET. CONSULT ORTHO. MRI L FOOT. (5) Nausea & vomiting Current Visit: Yes Status: Acute Plan: CT NEGATIVE FOR OBSTRUCTION. IV BOLUS GIVEN. ALREADY ON IV PROTONIX IT CAN VIRAL OR SE OF ALLOPURINOL. STOP IT FOR NOW. HD PENDING. POSSIBLE FROM ALLOPURINOL RESOLVED IN ONE DAY. DID NOT TOLERATE ALLOPURINOL. (6) Chronic venous hypertension (idiopathic) with ulcer of left lower extremity Current Visit: No Status: Acute (7) Abnormal urinalysis Current Visit: Yes Status: Acute Plan: SPECIMEN WAS COLLECTED FROM AVILES CATHETER. THIS IS NOT A STANDARD WAY TO COLLECT URINE. AVILES SPECIMENS WITHOUT ANY SYMPTOMS MUST BE IGNORED. WE ARE TREATING PATIENT AND WE MUST NOT TREAT COLONIZED BACTERIA IN AVILES CATHETER OR AVILES INFESTED URETHRA. HER URINE SAMPLE WAS COLLECTED AFTER REMOVAL OF AVILES THAT IS PENDING. I HAD ADVISED TO ST CATH AND GET SAMPLE ASYMPTOMATIC URINE BACTERIA MUST NOT BE TREATED. THIS IS A GOLD STANDARD. REMOVE THE DIAGNOSIS FROM LIST AND STOP MERREM UNTIL SHE REALLY HAS ANY SYMPTOMS. REPEAT SPECIMEN IS POSITIVE BUT STILL NO SYMPTOMS. SHE SHOULD NOT BE GIVEN HEAVY ANTIBIOTIC FOR COLONIZED URINE. THAT IS NOT A GOLD STANDARD. I WILL SEE IF SHE HAS ANY SYMPTOM. SHE STILL HAS NO SYMPTOMS. NO FEVER, NO PAIN AT URINATION, NO FLANK PAIN ETC.
[2018-04-13] MEDS ORDERED: DRISDOL (VITAMIN D=ERGOCALCIFEROL) 50000 UNIT CAP PO SCH (11:00)
[2018-04-13] MEDS: ALLOPURINOL 100 MG TAB PO SCH (11:38)
[2018-04-13] MEDS: predniSONE 10 MG TAB PO SCH ×2 (11:38→22:05)
[2018-04-13] MEDS: ENOXAPARIN 30 MG/0.3 ML SQ SCH (16:17)
[2018-04-13] MEDS: SOD FERRIC GLUC COMPLX/SUCROSE 125 MG in NA CHLORIDE 0.9% 100 ML IV SCH (16:17)
[2018-04-13] MEDS: PARoxetine HCl 10 MG TAB PO SCH (22:06)
[2018-04-13] MEDS: ACETAMINOPHEN 325 MG TABLET PO PRN (22:37)
--- NOTE | 2018-04-13 22:43 | PN ---
Date of Progress Note: 04/13/2018 Chief Complaint: Chronic kidney disease stage 3, accelerated by acute kidney injury with congestive heart failure, cardiorenal syndrome. History Of Present Illness: The patient is initiated on dialysis. The patient is to have dialysis t omorrow. She developed acute kidney injury secondary to cardiorenal syndrome. Urine output has been stable. Diuretic were stopped. The patient developed gouty arthritis. She received prednisone dena atment for gout. She is undergoing workup for foot pain. Review of Systems: Denies fever, chills. Physical Examination: Lungs: Clear to auscultation bilaterally. Heart: S1, S2. Abdomen: Soft, benign. Extremities: Both legs edema. Laboratory Data: Hemoglobin 8.6, WBC 8.0, platelet count is 178,000. Sodium 142, potassium 3.9, chl oride 103, CO2 32, BUN 47, creatinine 2.6, glucose 103, calcium 8.4. Impression And Plan: 1.Acute on chronic kidney injury. The patient has nonoliguric urine output. Monitor electrolytes a nd azotemia closely. 2.Hypervolemia with acute on chronic kidney injury. The patient is dialysis dependent. Continue lo w-sodium diet and p.o. fluid restriction and adjust ultrafiltration with dialysis. 3.Gouty arthritis. The patient is on prednisone. Pain is controlled. The patient will continue p. o. steroids for gout flare. The patient will start allopurinol for uric acid control. 4.Anemia in chronic kidney disease. Monitor hemoglobin level, adjust DAYSI. 5.Diabetes mellitus, continue insulin. FLOWER/DIVYA Voice ID: [id number] Report ID: [id number]
[2018-04-14] MEDS: INSULIN -REGULAR HUMAN 50 UNIT/0.5 ML ML SQ SCH ×4 (07:30→20:26)
[2018-04-14] MEDS: LACTULOSE 20 GM/30 ML UCUP PO SCH (08:12)
[2018-04-14] MEDS: SACUBITRIL/VALSARTAN 24/26 MG TAB PO SCH ×2 (08:12→20:26)
[2018-04-14] MEDS: NEBIVOLOL HCL 5 MG TAB PO SCH (08:13)
[2018-04-14] MEDS: PANTOPRAZOLE 40 MG INJ IVP SCH (08:13)
[2018-04-14] MEDS: FOLIC ACID 1 MG TABLET PO SCH (08:13)
[2018-04-14] MEDS: HYDRALAZINE HCL 25 MG TABLET PO SCH ×3 (08:13→20:25)
[2018-04-14] MEDS: ALLOPURINOL 100 MG TAB PO SCH (08:14)
[2018-04-14] MEDS: POLYETHYL GLY 3350 17 GM/DOSE PO SCH (08:14)
[2018-04-14] MEDS: predniSONE 10 MG TAB PO SCH ×2 (08:14→20:24)
[2018-04-14] MEDS: CALCIUM CARBONATE CHEW 500MG TAB PO SCH ×3 (08:14→16:27)
[2018-04-14] MEDS: NITROGLYCERIN 0.2 MG/HR (5 MG) PATCH TD SCH (08:14)
[2018-04-14] MEDS: INSULIN GLARGINE 100 UNITS/ML SQ SCH (08:15)
[2018-04-14] MEDS: FORMOTEROL FUMARATE IH SCH ×2 (08:16→20:26)
[2018-04-14] MEDS: BUDESONIDE IH SCH ×2 (08:16→20:26)
[2018-04-14] MEDS: [UNRECOGNIZED DRUG - OTHER] IH SCH ×2 (08:16→20:26)
[2018-04-14] MEDS: ENOXAPARIN 30 MG/0.3 ML SQ SCH (16:28)
[2018-04-14] MEDS: PARoxetine HCl 10 MG TAB PO SCH (20:26)
--- NOTE | 2018-04-14 21:41 | P.PN ---
Subjective Date of Service: 04/14/18 Chief Complaint: L FOOT PAIN. HAS IMPROVED. DEAN IS FEELING LOT BETTER. SHE NOW UNDERSTANDS THAT OBESITY WITH POOR FOOD CONTROL DIABETES, HTN AND RENAL FAILURE GO TOGETHER AND NOW IS AFFECTING HER HEART. SHE IS LOT BETTER. SHE EATS OUTSIDE FOOD AND KNOWS THAT SHE GETS MORE SALT AND FAT/CARBS THAN SHE NEEDS. FOOT PAIN L SIDE. MODERATE. EDEMA IS NOT BETTER YET. FOR LAST TWO DAYS PAIN IN L FOOT IS SEVERE. SHE WAS GIVEN ONE DOSE OF COLCHICINE WITH NO HELP. WITH POOR RENAL FUNCTION SHE CAN'T TAKE MORE. PAIN IS SOME BETTER WITH STEROIDS SHE HAS LESS PAIN IN L FOOT BUT HAS NAUSEA AND VOMITING THIS AM. I CALLED DR SIMON. NASUEA AND VOMITING IS GONE NOW. THIS WAS POSSIBLE FROM ALLOPURINOL IT WAS THE ONLY NEW MEDICINE. HD STARTED YEST. HD STARTED, EDEMA, DYSPNEA HAVE IMPROVED. SHE HAS MILD FOOT PAIN. NO MORE NAUSEA AND VOMITING. HER PAIN INL FOOT IS THE MAIN COMPLAINT. DYSPNEA, EDEMA HAVE IMPROVED. PREDNISONE IS NOT HELPING PAIN. MS. FIELD IS ALSO TIRED OF WAITING FOR INSURANCE APPROVAL FOR DIALYSIS. SHE HAS L FOOT PAIN . SHE HAS NO UTI SYMPTOMS. SHE HAS BEEN STABLE FOR DC. SHE HAS STILL NO UTI SS. NO FEVER, NO CHILLS, NO BACK PAIN. SHE IS TIRED OF BEING HERE. TODAY WE HEARD THAT HOME DIALYSIS COMPANY HAS REJECTED HER. NOW WE NEED TO HAVE APPROVAL FOR [facility]. Review of Systems 10-point ROS is otherwise unremarkable General: Weakness, Malaise Physical Examination - Vital Signs Temperature: 97.9 F Blood Pressure: 133/76 Pulse: 65 Respirations: 18 Pulse Ox (%): 96 - Physical Exam General: Alert, In no apparent distress, Obese HEENT: Atraumatic, PERRLA, EOMI Neck: Supple, JVD not distended Respiratory: Clear to auscultation bilaterally, Normal air movement Cardiovascular: Regular rate/rhythm, Normal S1 S2 Gastrointestinal: Normal bowel sounds, No tenderness Musculoskeletal: No tenderness Integumentary: No rashes Neurological: Normal speech, Normal tone, Normal affect Lymphatics: No axilla or inguinal lymphadenopathy - Studies Microbiology Data (last 24 hrs): 04/12/18 05:25 Clean Catch Urine [place] Count - Final >100,000 CFU/ML. 04/12/18 05:25 Clean Catch Urine - Final Escherichia Coli Enterococcus Faecalis Enterobacter [place] Medications List Reviewed: Yes Assessment And Plan - Current Problems (Diagnosis) (1) Chronic kidney disease (CKD) stage G4/A1, severely decreased glomerular filtration rate (GFR) between 15-29 mL/min/1.73 square meter and albuminuria creatinine ratio less than 30 mg/g Current Visit: No Status: Chronic Plan: STABLE BUT WILL END UP ON DIALYSIS EVEN WITH LASIX 80 MGPO BID SHE IS NOT ABLE TO STAY OUT OF CHF. THIS IS FROM DM AND POOR DIET FOR LIFE TIME. TALKED TO DR Madonna SIMON. IF CREATIINE IS WORSE IN AM HE WILL START HD. IT IS 4 TODAY. PATIENT IS AGREEABLE. CATH FOR HD PLACED ONCE SHE GETS ON HD THE MED LIST WILL GET SMALLER. HD STARTED. FEELS WELL. ON HD. DOING WELL. WE ARE WAITING FOR INSURANCE TO APPROVE HOME HD. STABLE. NO CHANGE. (2) Congestive cardiomyopathy Current Visit: No Status: Chronic Plan: SHE IS STILL NOT EATING WELL. SHE CLAIMED THAT SHE IS WATCHING HER DIET BUT WHEN ASKED SHE SAYS SHE EATS IN [employer] DAILY. SHE PROMISES TO COOK AND EAT WELL WITH LOW SALT ORDERS ARE GIVEN TO LOSE WEIGHT MANY TIMES IN THE PAST. WITH LOSS OF WEIGHT SHE WILL LIVE LONGER. CONGESTIVE CARDIOMYOPATHY MEANS- SYSTOLIC HEART FAILURE- THIS PATIENT HAS ACUTE ON CHRONIC AT THIS POINT. FOR HIM DEPT. SHE WILL EAT BETTER, SHE SAYS NOW. LASIX DRIP BY DR SIMONF STABLE BUT EDEMA MODERATE. ADD ENTRESTTO STOP AVAPRO- DONE. CXR HAS IMPROVED. SHE IS STILL COMPLAINING. STOPPED ENTRESTO UNTIL STABLE OR ON HD PER DR SIMON. STABLE FOR NOW. (3) Hypertension Current Visit: No Status: Chronic Plan: HYDRLAZINE IS HIGHER ENTRESTO STOPPED FOR NOW UNTIL CLEARED BY NEPHROLOGISTS. (4) Left foot pain Current Visit: Yes Status: Acute Plan: POSSIBLE GOUT COLCHICINE PRN. URIC ACID LEVEL. X RAY. NO INJURY NO OPEN AREAS. URIC ACID IS HIGH . I HAVE ASKED BRANDS EDITOR TO HELP REDUCE GOUT PAIN AND URIC ACID. SHE CAN'T GET MEDS LIKE COLCHICINE SHE HAS CRF. WILL HAVE TO WAIT FOR ALLOPURNIOL UNTIL CLERAED FOR GOUT PAIN STOPPED ALLOPURINOL NEW NV STARTED. NOT ABLE TO TOLERATE ALLOPURINOL YET. CONSULT ORTHO. MRI L FOOT. GOUT HAS IMPROVED. RESUME ALLOPURINOL, TOLERATED NOW. (5) Nausea & vomiting Current Visit: Yes Status: Acute Plan: CT NEGATIVE FOR OBSTRUCTION. IV BOLUS GIVEN. ALREADY ON IV PROTONIX IT CAN VIRAL OR SE OF ALLOPURINOL. STOP IT FOR NOW. HD PENDING. POSSIBLE FROM ALLOPURINOL RESOLVED IN ONE DAY. DID NOT TOLERATE ALLOPURINOL. (6) Chronic venous hypertension (idiopathic) with ulcer of left lower extremity Current Visit: No Status: Acute (7) Abnormal urinalysis Current Visit: Yes Status: Acute Plan: SPECIMEN WAS COLLECTED FROM AVILES CATHETER. THIS IS NOT A STANDARD WAY TO COLLECT URINE. AVILES SPECIMENS WITHOUT ANY SYMPTOMS MUST BE IGNORED. WE ARE TREATING PATIENT AND WE MUST NOT TREAT COLONIZED BACTERIA IN AVILES CATHETER OR AVILES INFESTED URETHRA. HER URINE SAMPLE WAS COLLECTED AFTER REMOVAL OF AVILES THAT IS PENDING. I HAD ADVISED TO ST CATH AND GET SAMPLE ASYMPTOMATIC URINE BACTERIA MUST NOT BE TREATED. THIS IS A GOLD STANDARD. REMOVE THE DIAGNOSIS FROM LIST AND STOP MERREM UNTIL SHE REALLY HAS ANY SYMPTOMS. REPEAT SPECIMEN IS POSITIVE BUT STILL NO SYMPTOMS. SHE SHOULD NOT BE GIVEN HEAVY ANTIBIOTIC FOR COLONIZED URINE. THAT IS NOT A GOLD STANDARD. I WILL SEE IF SHE HAS ANY SYMPTOM. SHE STILL HAS NO SYMPTOMS. NO FEVER, NO PAIN AT URINATION, NO FLANK PAIN ETC.
--- NOTE | 2018-04-15 04:09 | PN ---
Date of Progress Note: 04/14/2018 Chief Complaint: Accelerated chronic kidney disease. Subjective: The patient has history of chronic kidney disease stage 3. The patient has history of d iabetes mellitus, anasarca, and congestive heart failure with diastolic dysfunction. The patient was started on dialysis. Today, she obtained dialysis for metabolic clearance and ultrafiltration. Review of Systems: Denies fever, chills today. Denies nausea, vomiting. Physical Examination: Lungs: Clear to auscultation bilaterally. Heart: S1, S2. Abdomen: Soft, obese. Extremities: Edema present in both legs. Impression And Plan: 1.End-stage renal disease. Continue dialysis 3 times per week. 2.Hypertension. Blood pressure in acceptable control. 3.Renal osteodystrophy. Continue binders as needed. Monitor phosphorus level. 4.Gout. The patient will continue allopurinol and prednisone for gout flare. The patient received colchicine for gout flare. FLOWER/DIVYA Voice ID: [id number] Report ID: [id number]
[2018-04-15] MEDS: INSULIN -REGULAR HUMAN 50 UNIT/0.5 ML ML SQ SCH ×4 (07:30→20:35)
[2018-04-15 08:56] LABS: Potassium 4.7 mmol/L (3.5-5.1)
[2018-04-15] MEDS: FORMOTEROL FUMARATE IH SCH ×2 (09:00→20:35)
[2018-04-15] MEDS: BUDESONIDE IH SCH ×2 (09:00→20:35)
[2018-04-15] MEDS: [UNRECOGNIZED DRUG - OTHER] IH SCH ×2 (09:00→20:35)
[2018-04-15] MEDS: INSULIN GLARGINE 100 UNITS/ML SQ SCH (09:19)
[2018-04-15] MEDS: NITROGLYCERIN 0.2 MG/HR (5 MG) PATCH TD SCH (09:20)
[2018-04-15] MEDS: CALCIUM CARBONATE CHEW 500MG TAB PO SCH ×3 (09:25→18:15)
[2018-04-15] MEDS: PANTOPRAZOLE 40 MG INJ IVP SCH (09:28)
[2018-04-15] MEDS: NEBIVOLOL HCL 5 MG TAB PO SCH (09:28)
[2018-04-15] MEDS: HYDRALAZINE HCL 25 MG TABLET PO SCH ×3 (09:28→20:34)
[2018-04-15] MEDS: FOLIC ACID 1 MG TABLET PO SCH (09:28)
[2018-04-15] MEDS: LACTULOSE 20 GM/30 ML UCUP PO SCH (09:30)
[2018-04-15] MEDS: predniSONE 10 MG TAB PO SCH ×2 (09:30→20:35)
[2018-04-15] MEDS: SACUBITRIL/VALSARTAN 24/26 MG TAB PO SCH ×2 (09:31→20:35)
[2018-04-15] MEDS: ALLOPURINOL 100 MG TAB PO SCH (09:31)
[2018-04-15] MEDS: POLYETHYL GLY 3350 17 GM/DOSE PO SCH (09:31)
[2018-04-15] MEDS: ENOXAPARIN 30 MG/0.3 ML SQ SCH (18:15)
--- NOTE | 2018-04-15 19:44 | P.PN ---
Subjective Date of Service: 04/15/18 Chief Complaint: L FOOT PAIN. HAS IMPROVED. DEAN IS FEELING LOT BETTER. SHE NOW UNDERSTANDS THAT OBESITY WITH POOR FOOD CONTROL DIABETES, HTN AND RENAL FAILURE GO TOGETHER AND NOW IS AFFECTING HER HEART. SHE IS LOT BETTER. SHE EATS OUTSIDE FOOD AND KNOWS THAT SHE GETS MORE SALT AND FAT/CARBS THAN SHE NEEDS. FOOT PAIN L SIDE. MODERATE. EDEMA IS NOT BETTER YET. FOR LAST TWO DAYS PAIN IN L FOOT IS SEVERE. SHE WAS GIVEN ONE DOSE OF COLCHICINE WITH NO HELP. WITH POOR RENAL FUNCTION SHE CAN'T TAKE MORE. PAIN IS SOME BETTER WITH STEROIDS SHE HAS LESS PAIN IN L FOOT BUT HAS NAUSEA AND VOMITING THIS AM. I CALLED DR SIMON. NASUEA AND VOMITING IS GONE NOW. THIS WAS POSSIBLE FROM ALLOPURINOL IT WAS THE ONLY NEW MEDICINE. HD STARTED YEST. HD STARTED, EDEMA, DYSPNEA HAVE IMPROVED. SHE HAS MILD FOOT PAIN. NO MORE NAUSEA AND VOMITING. HER PAIN INL FOOT IS THE MAIN COMPLAINT. DYSPNEA, EDEMA HAVE IMPROVED. PREDNISONE IS NOT HELPING PAIN. MS. FIELD IS ALSO TIRED OF WAITING FOR INSURANCE APPROVAL FOR DIALYSIS. SHE HAS L FOOT PAIN . SHE HAS NO UTI SYMPTOMS. SHE HAS BEEN STABLE FOR DC. SHE HAS STILL NO UTI SS. NO FEVER, NO CHILLS, NO BACK PAIN. SHE IS TIRED OF BEING HERE. TODAY WE HEARD THAT HOME DIALYSIS COMPANY HAS REJECTED HER. NOW WE NEED TO HAVE APPROVAL FOR [facility]. WE ARE STILL WAITING FOR ANSWER FROM [facility] . STABLE TO GO HOME FOR DAYS. Physical Examination - Vital Signs Temperature: 97.8 F Blood Pressure: 128/65 Pulse: 67 Respirations: 18 Pulse Ox (%): 93 - Physical Exam General: Obese HEENT: Atraumatic, PERRLA, EOMI Neck: Supple, JVD not distended Respiratory: Clear to auscultation bilaterally, Normal air movement Cardiovascular: Regular rate/rhythm, Normal S1 S2 Gastrointestinal: Normal bowel sounds, No tenderness Musculoskeletal: Tenderness (FOOT L) Integumentary: No rashes Neurological: Normal speech, Normal tone, Normal affect Lymphatics: No axilla or inguinal lymphadenopathy - Studies Laboratory Data (last 24 hrs) 04/15/18 08:15: Sodium 138, Potassium 4.7, BUN 51 H, Creatinine 2.80 H, Glucose 127 H Microbiology Data (last 24 hrs): 04/12/18 05:25 Clean Catch Urine [place] Count - Final >100,000 CFU/ML. 04/12/18 05:25 Clean Catch Urine - Final Escherichia Coli Enterococcus Faecalis Enterobacter [place]ae Medications List Reviewed: Yes Assessment And Plan - Current Problems (Diagnosis) (1) Chronic kidney disease (CKD) stage G4/A1, severely decreased glomerular filtration rate (GFR) between 15-29 mL/min/1.73 square meter and albuminuria creatinine ratio less than 30 mg/g Current Visit: No Status: Chronic Plan: STABLE BUT WILL END UP ON DIALYSIS EVEN WITH LASIX 80 MGPO BID SHE IS NOT ABLE TO STAY OUT OF CHF. THIS IS FROM DM AND POOR DIET FOR LIFE TIME. TALKED TO DR Madonna SIMON. IF CREATIINE IS WORSE IN AM HE WILL START HD. IT IS 4 TODAY. PATIENT IS AGREEABLE. CATH FOR HD PLACED ONCE SHE GETS ON HD THE MED LIST WILL GET SMALLER. HD STARTED. FEELS WELL. ON HD. DOING WELL. WE ARE WAITING FOR INSURANCE TO APPROVE HOME HD. STABLE. NO CHANGE. (2) Congestive cardiomyopathy Current Visit: No Status: Chronic Plan: SHE IS STILL NOT EATING WELL. SHE CLAIMED THAT SHE IS WATCHING HER DIET BUT WHEN ASKED SHE SAYS SHE EATS IN [employer] DAILY. SHE PROMISES TO COOK AND EAT WELL WITH LOW SALT ORDERS ARE GIVEN TO LOSE WEIGHT MANY TIMES IN THE PAST. WITH LOSS OF WEIGHT SHE WILL LIVE LONGER. CONGESTIVE CARDIOMYOPATHY MEANS- SYSTOLIC HEART FAILURE- THIS PATIENT HAS ACUTE ON CHRONIC AT THIS POINT. FOR HIM DEPT. SHE WILL EAT BETTER, SHE SAYS NOW. LASIX DRIP BY DR SIMONF STABLE BUT EDEMA MODERATE. ADD ENTRESTTO STOP AVAPRO- DONE. CXR HAS IMPROVED. SHE IS STILL COMPLAINING. STOPPED ENTRESTO UNTIL STABLE OR ON HD PER DR SIMON. STABLE FOR NOW. ENTRESTO WORKING WELL WILL REDUCE HYDRLAZINE IF BP IS STABLE. (3) Hypertension Current Visit: No Status: Chronic Plan: HYDRLAZINE IS HIGHER ENTRESTO STOPPED FOR NOW UNTIL CLEARED BY NEPHROLOGISTS. (4) Left foot pain Current Visit: Yes Status: Acute Plan: POSSIBLE GOUT COLCHICINE PRN. URIC ACID LEVEL. X RAY. NO INJURY NO OPEN AREAS. URIC ACID IS HIGH . I HAVE ASKED [employer] TO HELP REDUCE GOUT PAIN AND URIC ACID. SHE CAN'T GET MEDS LIKE COLCHICINE SHE HAS CRF. WILL HAVE TO WAIT FOR ALLOPURNIOL UNTIL CLERAED FOR GOUT PAIN STOPPED ALLOPURINOL NEW NV STARTED. NOT ABLE TO TOLERATE ALLOPURINOL YET. CONSULT ORTHO. MRI L FOOT. GOUT HAS IMPROVED. RESUME ALLOPURINOL, TOLERATED NOW. (5) Nausea & vomiting Current Visit: Yes Status: Acute Plan: CT NEGATIVE FOR OBSTRUCTION. IV BOLUS GIVEN. ALREADY ON IV PROTONIX IT CAN VIRAL OR SE OF ALLOPURINOL. STOP IT FOR NOW. HD PENDING. POSSIBLE FROM ALLOPURINOL RESOLVED IN ONE DAY. DID NOT TOLERATE ALLOPURINOL. (6) Chronic venous hypertension (idiopathic) with ulcer of left lower extremity Current Visit: No Status: Acute (7) Abnormal urinalysis Current Visit: Yes Status: Acute Plan: SPECIMEN WAS COLLECTED FROM AVILES CATHETER. THIS IS NOT A STANDARD WAY TO COLLECT URINE. AVILES SPECIMENS WITHOUT ANY SYMPTOMS MUST BE IGNORED. WE ARE TREATING PATIENT AND WE MUST NOT TREAT COLONIZED BACTERIA IN AVILES CATHETER OR AVILES INFESTED URETHRA. HER URINE SAMPLE WAS COLLECTED AFTER REMOVAL OF AVILES THAT IS PENDING. I HAD ADVISED TO ST CATH AND GET SAMPLE ASYMPTOMATIC URINE BACTERIA MUST NOT BE TREATED. THIS IS A GOLD STANDARD. REMOVE THE DIAGNOSIS FROM LIST AND STOP MERREM UNTIL SHE REALLY HAS ANY SYMPTOMS. REPEAT SPECIMEN IS POSITIVE BUT STILL NO SYMPTOMS. SHE SHOULD NOT BE GIVEN HEAVY ANTIBIOTIC FOR COLONIZED URINE. THAT IS NOT A GOLD STANDARD. I WILL SEE IF SHE HAS ANY SYMPTOM. SHE STILL HAS NO SYMPTOMS. NO FEVER, NO PAIN AT URINATION, NO FLANK PAIN ETC.
[2018-04-15] MEDS: PARoxetine HCl 10 MG TAB PO SCH (20:34)
[2018-04-15] MEDS: ACETAMINOPHEN 325 MG TABLET PO PRN (20:51)
--- NOTE | 2018-04-15 20:53 | P.PN ---
Subjective Date of Service: 04/15/18 Chief Complaint: L FOOT PAIN. HAS IMPROVED. pt with CKD and chronic LE edema, presented for worsening edema, had COOPER Today still have foot pain, but much improved not candidate for home HD need to cont HD as an OP 3times per wk asymptomatic bacteruria Physical Examination - Vital Signs Temperature: 97.3 F Blood Pressure: 111/56 Pulse: 76 Respirations: 18 Pulse Ox (%): 96 - Physical Exam General: Oriented x3 HEENT: Atraumatic Neck: Without JVD or thyroid abnormality Cardiovascular: No edema Gastrointestinal: Normal bowel sounds - Studies Laboratory Data (last 24 hrs) 04/15/18 08:15: Sodium 138, Potassium 4.7, BUN 51 H, Creatinine 2.80 H, Glucose 127 H Microbiology Data (last 24 hrs): 04/12/18 05:25 Clean Catch Urine [place] Count - Final >100,000 CFU/ML. 04/12/18 05:25 Clean Catch Urine - Final Escherichia Coli Enterococcus Faecalis Enterobacter Cloacae Medications List Reviewed: Yes Assessment And Plan - Current Problems (Diagnosis) (1) CHF (congestive heart failure) Onset Date: 03/20/18 Current Visit: No Status: Acute (2) Edema Onset Date: 03/20/18 Current Visit: No Status: Acute (3) Hx of ovarian cancer Current Visit: No Status: Acute (4) Morbid obesity with BMI of 40.0-44.9, adult Current Visit: No Status: Acute (5) CKD (chronic kidney disease) Current Visit: No Status: Chronic Qualifiers: Chronic kidney disease stage: stage 4 (severe) Qualified Code(s): N18.4 - Chronic kidney disease, stage 4 (severe) - Plan Acute kidney injury on CKD pt became oliguric and started on HD euvlemic now CKD likely due to HTN nephrosclerosis Cooper likely 2/2 cardiorenal syndrome baseline Cr ~2.0 this admission 2.4>2.7>3.1 IV lasix >2.7 >2.9 and started on HD UA : no RBC 24 hr urine for prot 2.5gm previous w/u with [facility], ANCA, Anti DS, c3,c4 hep panel an HIV -ve SPEP; -ve IEF: -ve K/l 2.5 in view of elevated RFT need to Cont HD as an Op 3 times /wk Hypertension, better controlled now Anemia of chronic kidney disease with iron-deficiency anemia, was started on iron. b12 def will supply KEITH: IV iron will start on DAYSI Secondary hyperparathyroidism. corrected CA ok Congestive heart failure, diastolic dysfunction. We will try to establish better volume control. We will follow up with Cardiology. TTE; EF 60% asymptomatic bacteruria Dietrich scd E.coli ESBL will hold on Rx as pt is asymptomatic
[2018-04-16] MEDS ORDERED: EPOETIN ALFA 4000 UNIT/1 ML VIAL SQ SCH (07:30)
[2018-04-16] MEDS: INSULIN -REGULAR HUMAN 50 UNIT/0.5 ML ML SQ SCH ×2 (07:30→11:30)
[2018-04-16 07:56] LABS: Absolute Lymphocytes (CBC) 0.7 K/uL (0.7-4.9); Absolute Monocytes 0.7 K/uL (0.1-1.3); Absolute Neutrophil 4.8 K/uL (1.8-8.0); Basophils % 0.5 % (0-1.3); Eosinophils % 0.4 % (0-4.4); Hematocrit 29.4 % (36.0-45.0); Lymphocytes % 10.7 % (15.3-44.8); MCH 28.1 pg (27.0-35.0); MCV 87.2 fL (80-100); MPV 10.1 fL (7.6-11.3); Monocytes % 10.7 % (3.3-12.3); RBC Red Blood Cell Count 3.38 M/uL (3.86-4.86)
[2018-04-16] MEDS: FORMOTEROL FUMARATE IH SCH (09:00)
[2018-04-16] MEDS ORDERED: INSULIN GLARGINE 100 UNITS/ML SQ SCH (09:00)
[2018-04-16] MEDS: PANTOPRAZOLE 40 MG INJ IVP SCH (09:00)
[2018-04-16] MEDS: [UNRECOGNIZED DRUG - OTHER] IH SCH (09:00)
[2018-04-16] MEDS: HYDRALAZINE HCL 25 MG TABLET PO SCH ×2 (09:00→11:32)
[2018-04-16] MEDS: BUDESONIDE IH SCH (09:00)
[2018-04-16] MEDS ORDERED: EPOETIN ALFA 10,000 UNIT/ML VIAL SQ SCH (10:00)
[2018-04-16] MEDS: LACTULOSE 20 GM/30 ML UCUP PO SCH (11:24)
[2018-04-16] MEDS: POLYETHYL GLY 3350 17 GM/DOSE PO SCH (11:27)
[2018-04-16] MEDS: NITROGLYCERIN 0.2 MG/HR (5 MG) PATCH TD SCH (11:28)
[2018-04-16] MEDS: CALCIUM CARBONATE CHEW 500MG TAB PO SCH ×2 (11:30)
[2018-04-16] MEDS: SACUBITRIL/VALSARTAN 24/26 MG TAB PO SCH (11:31)
[2018-04-16] MEDS: FOLIC ACID 1 MG TABLET PO SCH (11:31)
[2018-04-16] MEDS: predniSONE 10 MG TAB PO SCH (11:31)
[2018-04-16] MEDS: NEBIVOLOL HCL 5 MG TAB PO SCH (11:31)
[2018-04-16] MEDS: ALLOPURINOL 100 MG TAB PO SCH (11:31)
[2018-04-16 11:34] VITALS: BP 144/75
[2018-04-16 12:55] VITALS: TEMP 97
--- NOTE | 2018-04-16 13:51 | P.DS ---
Admission Date: 03/31/18 Discharge Date: 04/16/18 Disposition: ROUTINE DISCHARGE Discharge Condition: FAIR Reason for Admission: L FOOT PAIN. HAS IMPROVED. - Problems (1) Chronic kidney disease (CKD) stage G4/A1, severely decreased glomerular filtration rate (GFR) between 15-29 mL/min/1.73 square meter and albuminuria creatinine ratio less than 30 mg/g Current Visit: No Status: Chronic (2) Congestive cardiomyopathy Current Visit: No Status: Chronic (3) Hypertension Current Visit: No Status: Chronic (4) Left foot pain Current Visit: Yes Status: Acute (5) Nausea & vomiting Current Visit: Yes Status: Acute (6) Chronic venous hypertension (idiopathic) with ulcer of left lower extremity Current Visit: No Status: Acute (7) Abnormal urinalysis Current Visit: Yes Status: Acute Hospital Course: MS. FIELD IS AT LAST GOING HOME. SHE IS A LOT BETTER AFTER BEING ON HD. SHE ALSO HAD ACUTE GOUT ATTACK THAT IS IMPROVING. SHE IS NOW ON ENTRESTO, ALLOPURINOL AND SOME MEDS AHVE BEEN STOPPED. FU IN OFFICE. Vital Signs/Physical Exam: Temp Pulse Resp BP Pulse Ox 97.0 F 69 24 H 144/75 H 97 04/16/18 12:00 04/16/18 12:00 04/16/18 12:00 04/16/18 12:00 04/16/18 12:00 Laboratory Data at Discharge: WBC 6.1 K/uL (4.3-10.9) D 04/16/18 07:36 Hgb 9.5 g/dL (12.0-15.0) L 04/16/18 07:36 Hct 29.4 % (36.0-45.0) L 04/16/18 07:36 Plt Count 219 K/uL (152-406) D 04/16/18 07:36 PT 12.8 SECONDS (9.5-12.5) H 04/09/18 09:16 INR 1.08 04/09/18 09:16 APTT 34.8 SECONDS (24.3-36.9) 03/31/18 12:18 Sodium 140 mmol/L (136-145) 04/16/18 07:36 Potassium 4.0 mmol/L (3.5-5.1) 04/16/18 07:36 BUN 45 mg/dL (7-18) H 04/16/18 07:36 Creatinine 2.40 mg/dL (0.55-1.3) H 04/16/18 07:36 Glucose 138 mg/dL (74-106) H 04/16/18 07:36 Uric Acid 9.1 mg/dL (2.6-6.0) H 04/05/18 05:55 Phosphorus 6.0 mg/dL (2.5-4.9) H 04/09/18 03:43 Magnesium 2.8 mg/dL (1.8-2.4) H 04/05/18 05:53 Total Bilirubin 0.7 mg/dL (0.2-1.0) 03/31/18 12:18 AST 23 U/L (15-37) 03/31/18 12:18 ALT 24 U/L (12-78) 03/31/18 12:18 Alkaline Phosphatase 308 U/L (45-117) H 03/31/18 12:18 Home Medications: Albuterol Sulfate [Ventolin Hfa] 2 puff IH Q4H PRN 03/19/18 Budesonide/Formoterol Fumarate [Symbicort 160-4.5 Mcg Inhaler] 2 inh IH BID Insulin Glargine,Hum.rec.anlog [Lantus Solostar] 30 units SQ DAILY 03/19/18 Lactulose 15 ml PO BID 03/19/18 Nebivolol HCl [Bystolic*] 5 mg PO DAILY 03/19/18 PARoxetine HCl [Paxil*] 10 mg PO BEDTIME 03/19/18 Hydralazine HCl 25 mg PO BID 03/31/18 Lactulose [Cephulac*] 20 gm PO DAILY 04/02/18 Mag Hydroxide 8% [Milk Of Magnesia*] 30 ml PO DAILY 04/02/18 Polyethylene Glycol 3350 [Miralax] 17 gm PO DAILY 04/02/18 Acetaminophen [Tylenol*] 650 mg PO Q6HP PRN tab 04/14/18 Allopurinol [Zyloprim*] 100 mg PO DAILY #90 tab 04/14/18 Calcium Carbonate [Tums Regular*] 500 mg PO AC tab 04/14/18 Hydralazine [Apresoline*] 50 mg PO TID tab 04/14/18 New Medications: Allopurinol [Zyloprim*] 100 mg PO DAILY #90 tab Followup: Leonie Hooks MD [ACTIVE - CAN ADMIT] - Daniel Lucio MD [Primary Care Provider] - Axel Luther MD [ACTIVE - CAN ADMIT] -
[2018-04-16 16:27] VITALS: O2SAT 99
--- NOTE | 2018-04-17 01:51 | PN ---
Date of Progress Note: 04/16/2018 Subjective: The patient doing better. No nausea. No vomiting. Physical Examination: Vital Signs: Blood pressure 144/75, pulse of 69. Chest: Clear to auscultation. Heart: S1, S2, regular. Abdomen: Soft, nontender. Extremities: Trace edema. Laboratory Data: H and H 9.5/29.4. Sodium 140, potassium 4, bicarb 32, BUN 45, creatinine 2.4, calc ium 8.2. Current Medications: The patient on its include: 1.Albumin. 2.Allopurinol 100. 3.Calcium carbonate. 4.Epogen. 5.Insulin. 6.Solu-Medrol. 7.Bystolic. 8.Zofran. 9.Paroxetine. Assessment And Plan: 1.End-stage renal disease. We will continue dialysis Saturday, Saturday, Saturday. 2.Secondary hyperparathyroidism, stable. 3.Anemia of chronic kidney disease. Continue Epogen. 4.Congestive heart failure, currently euvolemic. Continue current diuresis. 5.Chronic obstructive pulmonary disease. Continue current breathing treatment. The patient cleared from the renal standpoint for discharge planning to follow up with [facility] dialysis unit. DEAN Voice ID: [id number] Report ID: [id number]
[2018-04-21] MEDS ORDERED: predniSONE 5 MG TAB PO SCH (09:00)
== END 2018-04-16 16:55 | disposition home health service (06) | DRG 286 ==
LOC: 4TH 11:08
PROVIDERS: ADMIT Internal Medicine; ATTEND Internal Medicine
PROC: 02H633Z Insertion of Infusion Device into Right Atrium, Percutaneous Approach (ICD-10-PCS; principal; 2018-03-31)
PROC: B214YZZ Fluoroscopy of Right Heart using Other Contrast (ICD-10-PCS; 2018-03-31)
PROC: 5A1D70Z Performance of Urinary Filtration, Intermittent, Less than 6 Hours Per Day (ICD-10-PCS; 2018-04-09)
PROC: 5A1D70Z Performance of Urinary Filtration, Intermittent, Less than 6 Hours Per Day (ICD-10-PCS; 2018-04-10)
PROC: 5A1D70Z Performance of Urinary Filtration, Intermittent, Less than 6 Hours Per Day (ICD-10-PCS; 2018-04-11)
PROC: 5A1D70Z Performance of Urinary Filtration, Intermittent, Less than 6 Hours Per Day (ICD-10-PCS; 2018-04-12)
PROC: 5A1D70Z Performance of Urinary Filtration, Intermittent, Less than 6 Hours Per Day (ICD-10-PCS; 2018-04-14)
DX: I13.2 Hypertensive heart and chronic kidney disease with heart failure and with stage 5 chronic kidney disease, or end stage renal disease (principal); I50.23 Acute on chronic systolic (congestive) heart failure; J96.01 Acute respiratory failure with hypoxia; N18.6 End stage renal disease; T83.511A Infection and inflammatory reaction due to indwelling urethral catheter, initial encounter; N17.9 Acute kidney failure, unspecified; I87.312 Chronic venous hypertension (idiopathic) with ulcer of left lower extremity; N25.81 Secondary hyperparathyroidism of renal origin; E11.22 Type 2 diabetes mellitus with diabetic chronic kidney disease; I42.0 Dilated cardiomyopathy; M10.9 Gout, unspecified; J44.9 Chronic obstructive pulmonary disease, unspecified; R11.2 Nausea with vomiting, unspecified; E78.49 Other hyperlipidemia; I25.10 Atherosclerotic heart disease of native coronary artery without angina pectoris; D63.1 Anemia in chronic kidney disease; Z68.38 Body mass index [BMI] 38.0-38.9, adult; N20.0 Calculus of kidney; E66.01 Morbid (severe) obesity due to excess calories; D50.9 Iron deficiency anemia, unspecified; Y84.6 Urinary catheterization as the cause of abnormal reaction of the patient, or of later complication, without mention of misadventure at the time of the procedure; Z79.4 Long term (current) use of insulin; Z91.14 Patient's other noncompliance with medication regimen; Z85.43 Personal history of malignant neoplasm of ovary; Z88.5 Allergy status to narcotic agent
CPT/HCPCS: 36415; 71045; 74176; 76000; 76770; 78582; 80048; 80069; 80076; 81001; 81003; 81015; 82043; 82306; 82570; 82607; 82728; 82746; 82962; 83036; 83540; 83735; 83880; 83883; 84100; 84156; 84165; 84443; 84466; 84550; 85025; 85379; 85610; 85730; 86334; 87077; 87086; 87088; 87186; 90670; 90935; 93005; 93306; 94660; A9540; A9558; C1752; C9113; G0009; J1644; J1650; J1940; J2250; J2405; J2704; J2916; J3010; J3420; J7030; J7512; Q4081